=== PATIENT | female | born 1995 | race Caucasian/White ===

== ENCOUNTER 2018-11-15 02:19 | Emergency (ER) | payer OTHER ==
[2018-11-15 02:56] LABS: Protime INR 0.96
[2018-11-15 03:27] LABS: Absolute Lymphocytes (CBC) 4.4 K/uL (0.7-4.9); Absolute Monocytes 0.8 K/uL (0.1-1.3); Absolute Neutrophil 5.7 K/uL (1.8-8.0); Basophils % 0.3 % (0-1.3); Eosinophils % 2.5 % (0-4.4); Hematocrit 38.8 % (36.0-45.0); Lymphocytes % 39.3 % (15.3-44.8); MPV 8.2 fL (7.6-11.3); Monocytes % 6.7 % (3.3-12.3); RBC Red Blood Cell Count 4.45 M/uL (3.86-4.86)
[2018-11-15 03:40] LABS: ALT/SGPT 24 U/L (12-78); AST/SGOT 7 U/L (15-37); Albumin 3.6 g/dL (3.4-5.0); Alkaline Phosphatase 62 U/L (45-117); BUN Blood Urea Nitrogen 10 mg/dL (7-18); Bicarbonate 28 mmol/L (21-32); Bilirubin Direct < 0.1 mg/dL (0-0.2); Bilirubin Total 0.1 mg/dL (0.2-1.0); Glucose Level 100 mg/dL (74-106); Magnesium 1.8 mg/dL (1.8-2.4); NT PRO-BNP 75 pg/mL (<125); Potassium 3.7 mmol/L (3.5-5.1); Protein, Total 6.7 g/dL (6.4-8.2); Sodium Level 140 mmol/L (136-145); Troponin (Emerg Dept Use Only) < 0.02 ng/mL (0.0-0.045)
--- NOTE | 2018-11-15 08:46 | ER ---
Nurse's Notes [facility] Name: Lara Palacio Age: 23 yrs Sex: Female : 1995 Arrival Date: 11/15/2018 Time: 02:23 Bed 4 Private MD: Diagnosis: Chest pain, unspecified Presentation: 11/15 02:20 Presenting complaint: Patient states: that since 2099 she has been having chest fc tightness that goes through to her upper back along with shortness of breath. These episodes are on and off. Denies any nausea or vomiting. Did have episode of heart rate of 158 x 20 minutes. On antibiotics and [place] for tooth infection. Transition of care: patient was not received from another setting of care. Onset of symptoms was November 14, 2018 at 21:00. Risk Assessment: Do you want to hurt yourself or someone else? Patient reports no desire to harm self or others. Initial Sepsis Screen: Does the patient meet any 2 criteria? No. Patient's initial sepsis screen is negative. Does the patient have a suspected source of infection? No. Patient's initial sepsis screen is negative. Care prior to arrival: Medication(s) given: ASA, 81 mg, x 4. 02:20 Method Of Arrival: [facility]: [facility] 02:20 Acuity: DEEPA 2 fc Historical: - Allergies: 02:29 No Known Allergies; fc - Home Meds: 02:29 [place] 7.5-325 mg Oral tab 1 tab every 4 hours [Active]; alprazolam 2 mg Oral tab 1 tab fc daily prn [Active]; - PMHx: 02:29 Myocardial infarction; bradycardia; SVT; Vasovagal syndrome; Anxiety; fc - PSHx: 02:29 heart ablation x 2; eye surg; Tonsillectomy; Adenoids; fc - Immunization history:: Last tetanus immunization: up to date Flu vaccine is not up to date. - Social history:: Smoking status: Patient uses tobacco products, smokes one-half pack cigarettes per day, Patient uses alcohol, occasionally. Patient/guardian denies using street drugs. - Ebola Screening: : Patient negative for fever greater than or equal to 101.5 degrees Fahrenheit, and additional compatible Ebola Virus Disease symptoms Patient denies exposure to infectious person Patient denies travel to an Ebola-affected area in the 21 days before illness onset. Screenin:27 Abuse screen: Denies threats or abuse. Nutritional screening: No deficits noted. fc Tuberculosis screening: No symptoms or risk factors identified. Fall Risk None identified. Assessment: 02:57 General: Appears in no apparent distress. uncomfortable, Behavior is calm, cooperative, jd3 appropriate for age. Pain: Complains of pain in chest Pain does not radiate. Pain began suddenly. Neuro: Level of Consciousness is awake, alert, obeys commands, Oriented to person, place, time, situation, Appropriate for age. Cardiovascular: Capillary refill < 3 seconds Patient's skin is warm and dry. Rhythm is regular. Respiratory: Airway is patent Respiratory effort is even, unlabored, Respiratory pattern is regular, symmetrical. GI: No signs and/or symptoms were reported involving the gastrointestinal system. : No signs and/or symptoms were reported regarding the genitourinary system. EENT: No signs and/or symptoms were reported regarding the EENT system. Derm: Skin is intact, Skin is dry, Skin is normal, Skin temperature is warm. Musculoskeletal: Circulation, motion, and sensation intact. Range of motion: intact in all extremities. 03:30 Reassessment: Patient appears in no apparent distress at this time. Patient and/or jd3 family updated on plan of care and expected duration. Pain level reassessed. Patient is alert, oriented x 3, equal unlabored respirations, skin warm/dry/pink. 04:31 Reassessment: Patient appears in no apparent distress at this time. Patient and/or jd3 family updated on plan of care and expected duration. Pain level reassessed. Patient is alert, oriented x 3, equal unlabored respirations, skin warm/dry/pink. 04:32 Reassessment: pt updated on wait for 2nd trop to be drawn at 0640. ak1 05:20 Reassessment: Patient appears in no apparent distress at this time. Patient and/or jd3 family updated on plan of care and expected duration. Pain level reassessed. Patient is alert, oriented x 3, equal unlabored respirations, skin warm/dry/pink. 06:08 Reassessment: Patient appears in no apparent distress at this time. Patient and/or jd3 family updated on plan of care and expected duration. Pain level reassessed. Patient is alert, oriented x 3, equal unlabored respirations, skin warm/dry/pink. 07:07 General: Appears in no apparent distress. uncomfortable, Behavior is calm, cooperative, hj appropriate for age. Pain: Denies pain. Neuro: Level of Consciousness is awake, alert, obeys commands, Oriented to person, place, time, situation, Appropriate for age. Cardiovascular: Capillary refill < 3 seconds Patient's skin is warm and dry. Respiratory: Airway is patent Respiratory effort is even, unlabored, Respiratory pattern is regular, symmetrical. GI: No signs and/or symptoms were reported involving the gastrointestinal system. : No signs and/or symptoms were reported regarding the genitourinary system. EENT: No signs and/or symptoms were reported regarding the EENT system. Derm: Skin is intact, Skin is dry, Skin is pink, warm \T\ dry. Skin temperature is warm. Musculoskeletal: Circulation, motion, and sensation intact. Range of motion: intact in all extremities. 08:15 Reassessment: Patient and/or family updated on plan of care and expected duration. Pain pc1 level reassessed. Patient is alert, oriented x 3, equal unlabored respirations, skin warm/dry/pink. 08:58 Reassessment: Patient appears in no apparent distress at this time. Patient and/or ch family updated on plan of care and expected duration. Pain level reassessed. Patient is alert, oriented x 3, equal unlabored respirations, skin warm/dry/pink. Patient denies pain at this time. Patient states feeling better. Patient states symptoms have improved. Vital Signs: 02:20 BP 123 / 80; Pulse 88; Resp 18; Temp 98.1(O); Pulse Ox 100% on R/A; Weight 97.52 kg fc (R); Height 5 ft. 3 in. (160.02 cm) (R); Pain 3/10; 03:30 BP 106 / 65; Pulse 62; Resp 14 S; Pulse Ox 99% on R/A; jd3 04:31 BP 109 / 76; Pulse 67; Resp 14 S; Pulse Ox 97% on R/A; jd3 05:16 BP 114 / 76; Pulse 50; Resp 14; Pulse Ox 98% on R/A; ak1 06:08 BP 95 / 61; Pulse 65; Resp 15 S; Pulse Ox 98% on R/A; jd3 07:04 BP 94 / 64; Pulse 53; Resp 18; Pulse Ox 100% ; pc1 08:15 BP 97 / 61; Pulse 57; Resp 14; Pulse Ox 100% ; Pain 2/10; pc1 08:58 BP 96 / 54; Pulse 56; Resp 14; Temp 97.8; Pulse Ox 99% on R/A; Pain 0/10; ch 02:20 Body Mass Index 38.09 (97.52 kg, 160.02 cm) ED Course: 02:20 Arm band placed on Patient placed in an exam room, on a stretcher. fc 02:23 Patient arrived in ED. fc 02:26 Triage completed. fc 02:27 Theodore Carter MD is Attending Physician. kdr 02:27 Patient has correct armband on for positive identification. Placed in gown. Bed in low fc position. Call light in reach. Side rails up X2. potline monitor on. Pulse ox on. NIBP on. 02:29 Chanell García, RN is Primary Nurse. ak1 02:45 Inserted saline lock: 22 gauge in right forearm, using aseptic technique. Blood jd3 collected. 02:54 X-ray completed. Portable x-ray completed in exam room. Patient tolerated procedure sg4 well. 02:55 XRAY Chest (1 view) In Process Unspecified. EDMS 06:13 Patient maintains SpO2 saturation greater than 95% on room air. jd3 06:50 Sergio Diamond PA is PHCP. [facility] 06:59 Diego Goncalves, LORNE is Primary Nurse. hj 08:46 Ammon Villa MD is Referral Physician. [facility] 08:58 No provider procedures requiring assistance completed. IV discontinued, intact, ch bleeding controlled, No redness/swelling at site. Pressure dressing applied. 09:00 Basic Metabolic Panel Sent. Administered Medications: No medications were administered Outcome: 08:46 Discharge ordered by . [facility] 08:58 Discharged to home ambulatory, with family. 08:58 Condition: improved 08:58 Discharge instructions given to patient, family, Instructed on discharge instructions, follow up and referral plans. Demonstrated understanding of instructions, follow-up care. 09:00 Patient left the ED. Signatures: Dispatcher [employer] EDMS Tari Francois RN RN Theodore Carter MD MD [facility] Sergio Diamond PA PA jmm Chretien, Felicia, RN RN fc Chanell García, RN RN ak1 Diego Goncalves, RN RN Shakir Villalpando, RN RN jd3 Sandra Gardiner Patrick pc1
--- NOTE | 2018-11-15 08:46 | EDPHYS ---
Physician Documentation [facility] Name: Lara Palacio Age: 23 yrs Sex: Female : 1995 Arrival Date: 11/15/2018 Time: 02:23 Bed 4 Private MD: ED Physician Theodore Carter HPI: 11/15 02:52 This 23 yrs old Female presents to ER via EMS with complaints of Chest Pain. kdr 02:52 The patient or guardian reports chest pain that is located primarily in the substernal kdr area. The pain does not radiate. Associated signs and symptoms: Pertinent positives: dizziness, lightheadedness, palpitations, shortness of breath, Pertinent negatives: diaphoresis, vomiting. The chest pain is described as aching, dull, a pressure, squeezing. Duration: The patient or guardian reports multiple episodes, that are intermittent, that wax and wane, with no pattern. Modifying factors: The symptoms are alleviated by nothing. the symptoms are aggravated by nothing. Severity of pain: At its worst the pain was moderate in the emergency department the pain has improved moderately. The patient has experienced similar episodes in the past, with the last episode occurring 6 month(s) ago. The patient has not recently seen a physician, Is seeing Dr. Villa for possible repeat ablation and pacemaker placement. Historical: - Allergies: 02:29 No Known Allergies; fc - Home Meds: 02:29 [place] 7.5-325 mg Oral tab 1 tab every 4 hours [Active]; alprazolam 2 mg Oral tab 1 tab fc daily prn [Active]; - PMHx: 02:29 Myocardial infarction; bradycardia; SVT; Vasovagal syndrome; Anxiety; fc - PSHx: 02:29 heart ablation x 2; eye surg; Tonsillectomy; Adenoids; fc - Immunization history:: Last tetanus immunization: up to date Flu vaccine is not up to date. - Social history:: Smoking status: Patient uses tobacco products, smokes one-half pack cigarettes per day, Patient uses alcohol, occasionally. Patient/guardian denies using street drugs. - Ebola Screening: : Patient negative for fever greater than or equal to 101.5 degrees Fahrenheit, and additional compatible Ebola Virus Disease symptoms Patient denies exposure to infectious person Patient denies travel to an Ebola-affected area in the 21 days before illness onset. ROS: 02:52 Constitutional: Negative for fever, chills, and weight loss, Eyes: Negative for injury, kdr pain, redness, and discharge, ENT: Negative for injury, pain, and discharge, Neck: Negative for injury, pain, and swelling, Respiratory: Negative for shortness of breath, cough, wheezing, and pleuritic chest pain, Abdomen/GI: Negative for abdominal pain, nausea, vomiting, diarrhea, and constipation, Back: Negative for injury and pain, : Negative for injury, bleeding, discharge, and swelling, MS/Extremity: Negative for injury and deformity, Skin: Negative for injury, rash, and discoloration, Psych: Negative for depression, anxiety, suicide ideation, homicidal ideation, and hallucinations, Allergy/Immunology: Negative for hives, rash, and allergies, Endocrine: Negative for neck swelling, polydipsia, polyuria, polyphagia, and marked weight changes, Hematologic/Lymphatic: Negative for swollen nodes, abnormal bleeding, and unusual bruising. 02:52 Cardiovascular: Positive for chest pain, palpitations, Negative for edema, orthopnea, acute changes. 02:52 Neuro: Positive for dizziness, weakness, Negative for altered mental status, headache, hearing loss, loss of consciousness, seizure activity, speech changes, syncope, near syncope, tinnitus, tremor, visual changes. Exam: 02:52 Constitutional: This is a well developed, well nourished patient who is awake, alert, kdr and in no acute distress. Head/Face: Normocephalic, atraumatic. Eyes: Pupils equal round and reactive to light, extra-ocular motions intact. Lids and lashes normal. Conjunctiva and sclera are non-icteric and not injected. Cornea within normal limits. Periorbital areas with no swelling, redness, or edema. Neck: Trachea midline, no thyromegaly or masses palpated, and no cervical lymphadenopathy. Supple, full range of motion without nuchal rigidity, or vertebral point tenderness. No Meningismus. Chest/axilla: Normal chest wall appearance and motion. Nontender with no deformity. No lesions are appreciated. Cardiovascular: Regular rate and rhythm with a normal S1 and S2. No gallops, murmurs, or rubs. Normal PMI, no JVD. No pulse deficits. Respiratory: Lungs have equal breath sounds bilaterally, clear to auscultation and percussion. No rales, rhonchi or wheezes noted. No increased work of breathing, no retractions or nasal flaring. Abdomen/GI: Soft, non-tender, with normal bowel sounds. No distension or tympany. No guarding or rebound. No evidence of tenderness throughout. Back: No spinal tenderness. No costovertebral tenderness. Full range of motion. Skin: Warm, dry with normal turgor. Normal color with no rashes, no lesions, and no evidence of cellulitis. MS/ Extremity: Pulses equal, no cyanosis. Neurovascular intact. Full, normal range of motion. Neuro: Awake and alert, GCS 15, oriented to person, place, time, and situation. Cranial nerves II-XII grossly intact. Motor strength 5/5 in all extremities. Sensory grossly intact. Cerebellar exam normal. Normal gait. Psych: Awake, alert, with orientation to person, place and time. Behavior, mood, and affect are within normal limits. Vital Signs: 02:20 BP 123 / 80; Pulse 88; Resp 18; Temp 98.1(O); Pulse Ox 100% on R/A; Weight 97.52 kg fc (R); Height 5 ft. 3 in. (160.02 cm) (R); Pain 3/10; 03:30 BP 106 / 65; Pulse 62; Resp 14 S; Pulse Ox 99% on R/A; jd3 04:31 BP 109 / 76; Pulse 67; Resp 14 S; Pulse Ox 97% on R/A; jd3 05:16 BP 114 / 76; Pulse 50; Resp 14; Pulse Ox 98% on R/A; ak1 06:08 BP 95 / 61; Pulse 65; Resp 15 S; Pulse Ox 98% on R/A; jd3 07:04 BP 94 / 64; Pulse 53; Resp 18; Pulse Ox 100% ; pc1 08:15 BP 97 / 61; Pulse 57; Resp 14; Pulse Ox 100% ; Pain 2/10; pc1 08:58 BP 96 / 54; Pulse 56; Resp 14; Temp 97.8; Pulse Ox 99% on R/A; Pain 0/10; ch 02:20 Body Mass Index 38.09 (97.52 kg, 160.02 cm) MDM: 06:50 Patient medically screened. petros 08:45 Data reviewed: vital signs, nurses notes. Counseling: I had a detailed discussion with petros the patient and/or guardian regarding: the historical points, exam findings, and any diagnostic results supporting the discharge/admit diagnosis, lab results, radiology results, the need for outpatient follow up, to return to the emergency department if symptoms worsen or persist or if there are any questions or concerns that arise at home. ED course: repeat enzymes are negative. patient is advised to follow up with cardiology on Saturday. patient is given strict return precautions. patient understood and agrees with the plan of care. . 11/15 02:27 Order name: Basic Metabolic Panel kdr 11/15 02:27 Order name: CBC with Diff; Complete Time: 04:39 kdr 11/15 02:27 Order name: LFT's; Complete Time: 04:39 kdr 11/15 02:27 Order name: Magnesium; Complete Time: 04:39 kdr 11/15 02:27 Order name: NT PRO-BNP; Complete Time: 04:39 kdr 11/15 02:27 Order name: PT-INR; Complete Time: 04:39 kdr 11/15 02:27 Order name: Troponin (emerg Dept Use Only); Complete Time: 04:39 kdr 11/15 02:27 Order name: XRAY Chest (1 view) kdr 11/15 02:27 Order name: EKG; Complete Time: 02:28 kdr 11/15 02:27 Order name: Cardiac monitoring; Complete Time: 02:30 kdr 11/15 02:27 Order name: EKG - Nurse/Tech; Complete Time: 02:31 kdr 11/15 02:27 Order name: IV [place]; Complete Time: 02:55 kdr 11/15 02:28 Order name: Basic Metabolic Panel; Complete Time: 04:39 EDMS 11/15 04:43 Order name: Troponin (emerg Dept Use Only); Complete Time: 08:47 ak1 11/15 02:27 Order name: Labs collected and sent; Complete Time: 03:57 kdr 11/15 02:27 Order name: O2 Per Protocol; Complete Time: 02:30 kdr 11/15 02:27 Order name: O2 Sat Monitoring; Complete Time: 02:30 kdr Administered Medications: No medications were administered Disposition: 11/15/18 08:46 Discharged to Home. Impression: Chest pain, unspecified. - Condition is Stable. - Discharge Instructions: Nonspecific Chest Pain. - Medication Reconciliation Form, Thank You Letter, Antibiotic Education, Prescription Opioid Use form. - Follow up: Ammon Villa MD; When: 1 - 2 days; Reason: Recheck today's complaints, Continuance of care, Re-evaluation by your physician. Addendum: 11/17/2018 06:52 Co-signature as Attending Physician, Theodore Carter MD I agree with the assessment and k dr plan of care. Signatures: Dispatcher [employer] EDTari Jacques, RN RN Theodore Carter MD MD [facility] Sergio Diamond PA PA [facility] Asia Daniel, RN RN fc Corrections: (The following items were deleted from the chart) 11/15 09:00 08:46 11/15/2018 08:46 Discharged to Home. Impression: Chest pain, unspecified. Condition is Stable. Forms are Medication Reconciliation Form, Thank You Letter, Antibiotic Education, Prescription Opioid Use. Follow up: Ammon Villa; When: 1 - 2 days; Reason: Recheck today's complaints, Continuance of care, Re-evaluation by your physician. [facility]
--- NOTE | 2018-11-15 09:21 | EKG ---
Test Date: 2018-11-15 Test Time: 02:26:40 [place] [employer] Operator: GORDON MEASUREMENT RESULTS: Intervals: Rate: 76 [place]: 162 QRSD: 86 QT: 382 QTc: 429 [place]: P: 42 NJ: 162 QRS: 43 T: 11 INTERPRETIVE STATEMENTS: Normal sinus rhythm Nonspecific T wave abnormality Abnormal ECG No previous ECG available for comparison Electronically Signed On 11-15-18 09:21:04 CDT by Ammon Villa
--- NOTE | 2018-11-15 11:16 | RAD REPORT ---
EXAM DESCRIPTION: RAD - Chest Single View - 11/15/2018 2:57 am CLINICAL HISTORY: CHEST PAIN Chest pain. COMPARISON: No comparisons FINDINGS: Portable technique limits examination quality. The lungs are grossly clear. The heart is normal in size. No displaced fractures. IMPRESSION: No acute intrathoracic process suspected.
== END 2018-11-15 09:00 | disposition home or self-care (01) ==
LOC: ER 02:19
DX: R07.9 Chest pain, unspecified (principal); I25.2 Old myocardial infarction
CPT/HCPCS: 36415; 71045; 80048; 80076; 83735; 83880; 84484; 85025; 85610; 93005; 99285

== ENCOUNTER 2019-01-09 12:03 | Emergency (ER) | payer OTHER ==
[2019-01-09] MEDS ORDERED: NA CHLORIDE 0.9% 1,000 ML ONE ×2 (13:53→14:30)
[2019-01-09 14:07] LABS: Urine Blood 1+ (NEG); Urine Glucose NEGATIVE (NEG); Urine Protein TRACE (NEG); Urine pH 6.5 (5.0-7.0)
[2019-01-09 14:12] LABS: Urine Bacteria >50 /HPF (<20)
[2019-01-09 14:13] LABS: Urine Culture Reflex Order REFLEXED; Urine Trichomonas PRESENT (NONE SEEN)
[2019-01-09] MEDS ORDERED: MORPHINE 4 MG/ML SYR ONE ×2 (14:29→15:54)
[2019-01-09] MEDS ORDERED: ACETAMINOPHEN 500 MG TAB ONE (14:30)
[2019-01-09] MEDS ORDERED: ONDANSETRON 4 MG/2 ML VIAL ONE (14:30)
[2019-01-09 14:57] LABS: Absolute Lymphocytes (CBC) 1.9 K/uL (0.7-4.9); Absolute Monocytes 1.2 K/uL (0.1-1.3); Absolute Neutrophil 12.4 K/uL (1.8-8.0); Basophils % 0.2 % (0-1.3); Eosinophils % 0.3 % (0-4.4); Hematocrit 42.6 % (36.0-45.0); Lymphocytes % 12.5 % (15.3-44.8); MPV 8.1 fL (7.6-11.3); Monocytes % 7.7 % (3.3-12.3); RBC Red Blood Cell Count 4.85 M/uL (3.86-4.86)
[2019-01-09 15:12] LABS: ALT/SGPT 19 U/L (12-78); AST/SGOT 11 U/L (15-37); Albumin 3.9 g/dL (3.4-5.0); Alkaline Phosphatase 87 U/L (45-117); BUN Blood Urea Nitrogen 7 mg/dL (7-18); Bicarbonate 25 mmol/L (21-32); Bilirubin Direct < 0.1 mg/dL (0-0.2); Bilirubin Total 0.4 mg/dL (0.2-1.0); Glucose Level 96 mg/dL (74-106); Lipase 90 U/L (73-393); Protein, Total 8.3 g/dL (6.4-8.2); Sodium Level 139 mmol/L (136-145)
--- NOTE | 2019-01-09 15:54 | RAD REPORT ---
EXAM DESCRIPTION: CT - Abdomen Pelvis W Contrast - 01/09/2019 3:30 pm CLINICAL HISTORY: Back pain, right-sided flank pain COMPARISON: None. TECHNIQUE: Biphasic, helical CT imaging of the abdomen and pelvis was performed following 100 ml non -ionic IV contrast. No oral contrast administered. All CT scans are performed using dose optimization technique as appropriate and may include automated exposure control or mA/KV adjustment according to patient size. FINDINGS: No suspicious findings in the lung bases. The liver, spleen, and pancreas show no suspicious findings. Gallbladder and biliary tree are also wi thout suspicious finding. Renal function appears to be symmetric. There is mild hydronephrosis and hydroureter on the right evan n to the pelvic inlet level. Distal ureter is decompressed. No left-sided hydronephrosis. There are n o obstructing or nonobstructing calculi. No etiology seen for the mild right-sided dilatation. This p attern can be seen with ureteritis. A recently passed stone, blood or inflammatory debris in the uret er would be possible. No pyelonephritis identifiable in the renal parenchyma. No solid mass lesion. N o bladder abnormalities. No adrenal abnormality seen. Uterus and ovaries within normal limits. No suspicious CORRECTIONS SPECIALIST process. No gastric dilatation or wall thickening. No small bowel abnormality. No acute colon process seen. Ce cum is low lying along the anterior floor the pelvis. No appendicitis findings. No free air, free fl uid or inflammatory stranding. No hernia, mass or bulky lymphadenopathy. No suspicious bony findings. IMPRESSION: Mild hydronephrosis of the right collecting system down to the pelvic inlet level. No ob structing calculus. Etiology for the dilatation is unknown. Ureteritis would be possible. Blood, inflammatory debris or r ecently passed stone can give this presentation. No pyelonephritis findings seen. No acute finding of the renal parenchyma. No acute GI or CORRECTIONS SPECIALIST process.
[2019-01-09] MEDS ORDERED: AZITHROMYCIN 250 MG TAB ONE (17:17)
[2019-01-09] MEDS ORDERED: CEFTRIAXONE/SWI 1gm 1 GM/10 ML SYR ONE (17:17)
[2019-01-09] MEDS ORDERED: metroNIDAZOLE 500 MG TABLET ONE (17:17)
--- NOTE | 2019-01-09 17:37 | EDPHYS ---
Physician Documentation [facility] Name: Lara Palacio Age: 23 yrs Sex: Female : 1995 Arrival Date: 01/09/2019 Time: 12:06 Bed 13 Private MD: ED Physician Theodore Carter HPI: 01/09 14:05 This 23 yrs old Female presents to ER via Ambulatory with complaints of Back pm1 Pain, Abdominal Pain, Vomiting, Blood In Urine. 14:05 The patient presents with pain that is acute, with no known mechanism of injury. The pm1 symptoms are located in the right mid back. Onset: The symptoms/episode began/occurred 3 day(s) ago. The pain radiates to the right upper quadrant. Associated signs and symptoms: Pertinent positives: abdominal pain, fever, nausea, vomiting, blood in urine, and vaginal discharge, Pertinent negatives: chest pain, headache, Diarrhea. The problem was sustained from unknown cause. Modifying factors: The patient symptoms are alleviated by nothing, the patient symptoms are aggravated by nothing. Severity of symptoms: in the emergency department the symptoms are actually worse. The patient has not experienced similar symptoms in the past. The patient has not recently seen a physician. 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 - Social history:: Smoking status: . - Ebola Screening: : Patient denies travel to an Ebola-affected area in the 21 days before illness onset. ROS: 14:05 Constitutional: Negative for fever, chills, and weight loss, Eyes: Negative for injury, pm1 pain, redness, and discharge, ENT: Negative for injury, pain, and discharge, Neck: Negative for injury, pain, and swelling, Cardiovascular: Negative for chest pain, palpitations, and edema, Respiratory: Negative for shortness of breath, cough, wheezing, and pleuritic chest pain, MS/Extremity: Negative for injury and deformity, Skin: Negative for injury, rash, and discoloration, Neuro: Negative for headache, weakness, numbness, tingling, and seizure. 14:05 Abdomen/GI: Positive for abdominal pain, nausea and vomiting, of the right upper quadrant, Negative for diarrhea, constipation. 14:05 Back: Positive for flank pain, on the right. 14:05 : Positive for hematuria, vaginal discharge. Exam: 14:05 Constitutional: This is a well developed, well nourished patient who is awake, alert, pm1 and in no acute distress. Head/Face: Normocephalic, atraumatic. Eyes: Pupils equal round and reactive to light, extra-ocular motions intact. Lids and lashes normal. Conjunctiva and sclera are non-icteric and not injected. Cornea within normal limits. Periorbital areas with no swelling, redness, or edema. ENT: Nares patent. No nasal discharge, no septal abnormalities noted. Tympanic membranes are normal and external auditory canals are clear. Oropharynx with no redness, swelling, or masses, exudates, or evidence of obstruction, uvula midline. Mucous membranes moist. Neck: Trachea midline, no thyromegaly or masses palpated, and no cervical lymphadenopathy. Supple, full range of motion without nuchal rigidity, or vertebral point tenderness. No Meningismus. Chest/axilla: Normal chest wall appearance and motion. Nontender with no deformity. No lesions are appreciated. Cardiovascular: Regular rate and rhythm with a normal S1 and S2. No gallops, murmurs, or rubs. Normal PMI, no JVD. No pulse deficits. Respiratory: Lungs have equal breath sounds bilaterally, clear to auscultation and percussion. No rales, rhonchi or wheezes noted. No increased work of breathing, no retractions or nasal flaring. Abdomen/GI: Soft, non-tender, with normal bowel sounds. No distension or tympany. No guarding or rebound. No evidence of tenderness throughout. 14:05 Skin: Warm, dry with normal turgor. Normal color with no rashes, no lesions, and no evidence of cellulitis. MS/ Extremity: Pulses equal, no cyanosis. Neurovascular intact. Full, normal range of motion. 14:05 Back: pain, that is moderate, of the right mid back, normal spinal alignment noted. 14:05 Neuro: Orientation: is normal, Motor: is normal, moves all fours. Vital Signs: 13:05 BP 128 / 81; Pulse 114; Resp 17; Temp 99.4(O); Pulse Ox 96% on R/A; Weight 90.72 kg tw2 (R); Height 5 ft. 3 in. (160.02 cm); Pain 10/10; 14:00 BP 124 / 78; Pulse 105; Resp 16; Pulse Ox 99% on R/A; hb 15:30 BP 128 / 68; Pulse 92; Resp 15; Pulse Ox 100% on R/A; Pain 7/10; hb 17:00 BP 122 / 70; Pulse 82; Resp 15; Temp 98.7; Pulse Ox 100% on R/A; hb 17:40 BP 135 / 87; Pulse 91; Resp 15; Pulse Ox 100% on R/A; hb 13:05 Body Mass Index 35.43 (90.72 kg, 160.02 cm) tw2 MDM: 13:27 Patient medically screened. pm1 17:09 ED course: Patient with mild hydronephritis on CT. Possibly due to recnet kidney stone pm1 or urethritis. Patient with history of kidney stones and diagnosed with trichomoniasis here in the ER. No symptoms indicating PID. Therefore will cover the patient with antibiotics for trich, gonorrhea, chlamydia, UTI and recently passed stone. 17:10 Data reviewed: vital signs. Data interpreted: Pulse oximetry: on room air is 99 %. pm1 Interpretation: normal. Counseling: I had a detailed discussion with the patient and/or guardian regarding: the historical points, exam findings, and any diagnostic results supporting the discharge/admit diagnosis, lab results, radiology results. 01/09 13:23 Order name: Urine Microscopic Only; Complete Time: 14:29 eb 01/09 13:33 Order name: Basic Metabolic Panel pm1 01/09 13:33 Order name: CBC with Diff pm1 01/09 13:33 Order name: Creatinine for Radiology pm1 01/09 13:33 Order name: Hepatic Function pm1 01/09 13:33 Order name: Lipase pm1 01/09 13:33 Order name: Flu; Complete Time: 14:57 pm1 01/09 13:34 Order name: Basic Metabolic Panel; Complete Time: 16:05 EDMS 01/09 13:34 Order name: CBC with Automated Diff EDMS 01/09 13:34 Order name: Creatinine (Radiology Only); Complete Time: 15:05 EDMS 01/09 13:34 Order name: Liver (Hepatic) Function; Complete Time: 16:05 EDMS 01/09 13:34 Order name: Lipase; Complete Time: 16:05 EDMS 01/09 13:48 Order name: Urine Dipstick--Ancillary (enter results); Complete Time: 14:29 eb 01/09 13:48 Order name: Urine --Ancillary (enter results); Complete Time: 14:29 eb 01/09 13:33 Order name: IV Saline Lock; Complete Time: 14:49 pm1 01/09 13:33 Order name: Labs collected and sent; Complete Time: 14:49 pm1 01/09 13:33 Order name: CT Abd/Pelvis - W/Contrast; Complete Time: 16:05 pm1 01/09 13:33 Order name: Urine Dipstick-Ancillary (obtain specimen); Complete Time: 14:54 pm1 01/09 13:33 Order name: Urine Test (obtain specimen); Complete Time: 14:55 pm1 01/09 14:14 Order name: Urine Culture EDMS Administered Medications: 14:16 Drug: Tylenol 1000 mg Route: PO; hb 15:15 Follow up: Response: No adverse reaction; Temperature is decreased hb 14:28 Drug: NS 0.9% 1000 ml Route: IV; Rate: 1000 ml; Site: right antecubital; iw 14:30 Drug: Zofran 4 mg Route: IVP; Site: right antecubital; iw 15:00 Follow up: Response: No adverse reaction hb 14:32 Drug: morphine 4 mg Route: IVP; Site: right antecubital; iw 15:45 Follow up: Response: No adverse reaction; Pain is unchanged, physician notified hb 14:36 Drug: NS 0.9% 1000 ml Route: IV; Rate: 1000 ml; Site: right antecubital; iw 15:44 Drug: morphine 4 mg Route: IVP; Site: right antecubital; hb 16:15 Follow up: Response: No adverse reaction hb 17:10 Drug: Rocephin 1 grams Route: IV; Rate: calculated rate; Site: right antecubital; hb 17:30 Drug: Zithromax 1 grams Route: PO; hb 17:30 Drug: Flagyl 2 grams Route: PO; hb Disposition: 01/09/19 17:36 Discharged to Home. Impression: Trichomoniasis, Mild right hydronephritis. - Condition is Stable. - Discharge Instructions: Trichomoniasis, Hydronephrosis. - Prescriptions for Cipro 500 mg Oral Tablet - take 1 tablet by ORAL route every 12 hours for 10 days; 20 tablet. Zofran 4 mg Oral Tablet - take 1 tablet by ORAL route every 12 hours As needed; 20 tablet. Tylenol- Codeine #3 300-30 mg Oral Tablet - take 2 tablet by ORAL route every 6 hours As needed; 20 tablet. - Medication Reconciliation Form, Thank You Letter, Antibiotic Education, Prescription Opioid Use form. - Follow up: Emergency Department; When: As needed; Reason: Worsening of condition. Follow up: Private Physician; When: 2 - 3 days; Reason: Recheck today's complaints, Continuance of care, Re-evaluation by your physician. - Problem is new. - Symptoms have improved. Addendum: 01/10/2019 19:31 Co-signature as Attending Physician, Theodore Carter MD I agree with the assessment and k dr plan of care. Signatures: Dispatcher [employer] EDMS Theodore Carter MD MD [facility] Misti Angeles RN RN En Lopez NP FOOTWEAR STITCHER pm1 Dora Ortega RN RN Carmina Severino RN RN tw2 Corrections: (The following items were deleted from the chart) 01/09 18:21 17:36 01/09/2019 17:36 Discharged to Home. Impression: Trichomoniasis; Mild right hb hydronephritis. Condition is Stable. Forms are Medication Reconciliation Form, Thank You Letter, Antibiotic Education, Prescription Opioid Use. Follow up: Emergency Department; When: As needed; Reason: Worsening of condition. Follow up: Private Physician; When: 2 - 3 days; Reason: Recheck today's complaints, Continuance of care, Re-evaluation by your physician. Problem is new. Symptoms have improved. pm1
--- NOTE | 2019-01-09 17:37 | ER ---
Nurse's Notes [facility] Name: Lara Palacio Age: 23 yrs Sex: Female : 1995 Arrival Date: 01/09/2019 Time: 12:06 Bed 13 Private MD: Diagnosis: Trichomoniasis;Mild right hydronephritis Presentation: 01/09 13:03 Presenting complaint: Patient states: started 3 or 4 days ago, i woke up with the tw2 center of my back hurting real bad, thought i slept wrong but everyday it got worse and now it has started to wrap around to the right side and i have been vomiting and nauseous and i am having back spasms, my urine is dark but it looks light rust and i have a headache too but its mostly my back. Transition of care: patient was not received from another setting of care. Onset of symptoms was January 09, 2019. Risk Assessment: Do you want to hurt yourself or someone else? Patient reports no desire to harm self or others. Initial Sepsis Screen: Does the patient meet any 2 criteria? HR > 90 bpm. No. Patient's initial sepsis screen is negative. Does the patient have a suspected source of infection? No. Patient's initial sepsis screen is negative. Care prior to arrival: None. 13:03 Method Of Arrival: Ambulatory tw2 13:03 Acuity: DEEPA 2 tw2 13:05 Note "i may or may not be , my last period was in october". tw2 Triage Assessment: 13:06 General: Appears uncomfortable, Behavior is cooperative, appropriate for age. Neuro: tw2 Level of Consciousness is awake, alert, obeys commands, Oriented to person, place, time, situation. Cardiovascular:. Cardiovascular: pt looks pale, diaphoretic.. GI: Reports lower abdominal pain, upper abdominal pain. Musculoskeletal: Range of motion: intact in all extremities. Musculoskeletal: Reports pain in back. 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 - Social history:: Smoking status: . - Ebola Screening: : Patient denies travel to an Ebola-affected area in the 21 days before illness onset. Screenin:01 Abuse screen: Denies threats or abuse. Denies injuries from another. Nutritional hb screening: No deficits noted. Tuberculosis screening: No symptoms or risk factors identified. Fall Risk None identified. Assessment: 14:01 General: Appears in no apparent distress. ill, Behavior is calm, cooperative. Pain: hb Pain currently is 10 out of 10 on a pain scale. Neuro: Level of Consciousness is awake, alert, obeys commands, Oriented to person, place, time, situation. Cardiovascular: Heart tones S1 S2 present Capillary refill < 3 seconds Patient's skin is warm and dry. Respiratory: Airway is patent Respiratory effort is even, unlabored, Respiratory pattern is regular, symmetrical, Breath sounds are clear bilaterally. GI: No signs and/or symptoms were reported involving the gastrointestinal system. : Reports right flank pain. EENT: No signs and/or symptoms were reported regarding the EENT system. Derm: Skin is intact, is healthy with good turgor, Skin is pink, warm \\T\\ dry. Musculoskeletal: No signs and/or symptoms reported regarding the musculoskeletal system. 14:50 Reassessment: Patient appears in no apparent distress at this time. Patient and/or hb family updated on plan of care and expected duration. Pain level reassessed. Patient is alert, oriented x 3, equal unlabored respirations, skin warm/dry/pink. 15:48 Reassessment: Pt returned from CT, c/o right flank pain 10/10, FIELD ASSISTANT Jessica notified, hb repeat morphine administered as ordered. 16:30 Reassessment: Patient appears in no apparent distress at this time. Patient and/or hb family updated on plan of care and expected duration. Pain level reassessed. Patient is alert, oriented x 3, equal unlabored respirations, skin warm/dry/pink. 17:30 Reassessment: Patient appears in no apparent distress at this time. Patient and/or hb family updated on plan of care and expected duration. Pain level reassessed. Patient is alert, oriented x 3, equal unlabored respirations, skin warm/dry/pink. Vital Signs: 13:05 BP 128 / 81; Pulse 114; Resp 17; Temp 99.4(O); Pulse Ox 96% on R/A; Weight 90.72 kg tw2 (R); Height 5 ft. 3 in. (160.02 cm); Pain 10/10; 14:00 BP 124 / 78; Pulse 105; Resp 16; Pulse Ox 99% on R/A; hb 15:30 BP 128 / 68; Pulse 92; Resp 15; Pulse Ox 100% on R/A; Pain 7/10; hb 17:00 BP 122 / 70; Pulse 82; Resp 15; Temp 98.7; Pulse Ox 100% on R/A; hb 17:40 BP 135 / 87; Pulse 91; Resp 15; Pulse Ox 100% on R/A; hb 13:05 Body Mass Index 35.43 (90.72 kg, 160.02 cm) tw2 ED Course: 12:06 Patient arrived in ED. rg4 13:05 Triage completed. tw2 13:05 Arm band placed on. tw2 13:27 En Lopez NP is PHCP. pm1 13:27 Theodore Carter MD is Attending Physician. pm1 13:33 Dora Ortega, LORNE is Primary Nurse. hb 14:01 Patient has correct armband on for positive identification. Placed in gown. Bed in low hb position. Call light in reach. Side rails up X 1. 14:01 Missed attempt(s): 22 gauge in right Bleeding controlled, band aid applied, catheter hb tip intact. 14:33 Radiology exam delayed due to lab results not completed at this time. (BUN/Creatinine). vm2 15:[address] via wheelchair. vm2 15:25 CT completed. Patient tolerated procedure well. Patient moved back from CT. nj 15:31 CT Abd/Pelvis - W/Contrast In Process Unspecified. EDMS 18:20 No provider procedures requiring assistance completed. IV discontinued, intact, hb bleeding controlled, No redness/swelling at site. Pressure dressing applied. Administered Medications: 14:16 Drug: Tylenol 1000 mg Route: PO; hb 15:15 Follow up: Response: No adverse reaction; Temperature is decreased hb 14:28 Drug: NS 0.9% 1000 ml Route: IV; Rate: 1000 ml; Site: right antecubital; iw 14:30 Drug: Zofran 4 mg Route: IVP; Site: right antecubital; iw 15:00 Follow up: Response: No adverse reaction hb 14:32 Drug: morphine 4 mg Route: IVP; Site: right antecubital; iw 15:45 Follow up: Response: No adverse reaction; Pain is unchanged, physician notified hb 14:36 Drug: NS 0.9% 1000 ml Route: IV; Rate: 1000 ml; Site: right antecubital; iw 15:44 Drug: morphine 4 mg Route: IVP; Site: right antecubital; hb 16:15 Follow up: Response: No adverse reaction hb 17:10 Drug: Rocephin 1 grams Route: IV; Rate: calculated rate; Site: right antecubital; hb 17:30 Drug: Zithromax 1 grams Route: PO; hb 17:30 Drug: Flagyl 2 grams Route: PO; hb Outcome: 17:36 Discharge ordered by MD. pm1 18:20 Discharged to home ambulatory, with family. hb 18:20 Condition: stable 18:20 Discharge instructions given to patient, Instructed on discharge instructions, follow up and referral plans. medication usage, Demonstrated understanding of instructions, follow-up care, medications, Prescriptions given X 3. 18:21 Patient left the ED. hb Addendum: 01/11/2019 09:55 Addendum: Culture Results: Positive urine culture. No further action required. Bacteria i w sensitive to prescribed antibiotic. Signatures: Dispatcher [employer] EDMisti Thomas RN RN En Lopez, ANTONY FIELD ASSISTANT pm1 Dora Ortega RN RN Carmina Severino RN RN 2 Mary Gardiner [facility] Navin Luciano [facility]
== END 2019-01-09 18:21 | disposition home or self-care (01) ==
LOC: ER 12:03
DX: A59.9 Trichomoniasis, unspecified (principal); N13.30 Unspecified hydronephrosis; I25.2 Old myocardial infarction
CPT/HCPCS: 36415; 74177; 80048; 80076; 81003; 81015; 81025; 83690; 85025; 87077; 87086; 87088; 87186; 87804; 96374; 96375; 99284; J0696; J2405; J7030; Q9967

== ENCOUNTER 2019-04-13 12:06 | Emergency (ER) | payer OTHER ==
[2019-04-13] MEDS ORDERED: METOPROLOL TAR 50 MG TAB ONE (12:49)
[2019-04-13 13:03] LABS: Urine Blood NEGATIVE (NEG); Urine Glucose NEGATIVE (NEG); Urine Protein NEGATIVE (NEG)
--- NOTE | 2019-04-13 13:06 | RAD REPORT ---
EXAM DESCRIPTION: RAD - Chest Single View - 04/13/2019 12:55 pm CLINICAL HISTORY: PALPITATIONS Chest pain. COMPARISON: Chest Single View dated 11/15/2018 FINDINGS: Portable technique limits examination quality. The lungs are grossly clear. The heart is normal in size. No displaced fractures. IMPRESSION: No acute intrathoracic process suspected.
[2019-04-13 13:10] LABS: Barbiturates NEGATIVE (NEGATIVE); Benzodiazepines POSITIVE (NEGATIVE); Cocaine NEGATIVE (NEGATIVE); METHAMPHETAM NEGATIVE (NEGATIVE); Methadone NEGATIVE (NEGATIVE); Opiates POSITIVE (NEGATIVE); Phencyclidine NEGATIVE (NEGATIVE); THC Cannibis NEGATIVE (NEGATIVE)
[2019-04-13 13:24] LABS: Absolute Lymphocytes (CBC) 2.8 K/uL (0.7-4.9); Basophils % 0.3 % (0-1.3); Hematocrit 36.7 % (36.0-45.0); Lymphocytes % 45.7 % (15.3-44.8); MPV 8.2 fL (7.6-11.3); RBC Red Blood Cell Count 4.26 M/uL (3.86-4.86)
[2019-04-13 13:35] LABS: Protime INR 0.97
[2019-04-13 13:57] LABS: ALT/SGPT 22 U/L (12-78); AST/SGOT 12 U/L (15-37); Albumin 3.5 g/dL (3.4-5.0); Alkaline Phosphatase 68 U/L (45-117); BUN Blood Urea Nitrogen 11 mg/dL (7-18); Bicarbonate 27 mmol/L (21-32); Bilirubin Direct < 0.1 mg/dL (0-0.2); Bilirubin Total 0.2 mg/dL (0.2-1.0); Glucose Level 81 mg/dL (74-106); NT PRO-BNP 26 pg/mL (<125); Potassium 3.8 mmol/L (3.5-5.1); Protein, Total 6.7 g/dL (6.4-8.2); Sodium Level 140 mmol/L (136-145); Troponin (Emerg Dept Use Only) < 0.02 ng/mL (0.0-0.045)
--- NOTE | 2019-04-13 14:20 | ER ---
Nurse's Notes [facility] Name: Lara Palacio Age: 23 yrs Sex: Female : 1995 Arrival Date: 04/13/2019 Time: 12:09 Bed 13 Private MD: Diagnosis: Bradycardia, unspecified;Tachycardia, unspecified Presentation: 04/13 12:16 Presenting complaint: Patient states: my HR is fluctuating, 62 the least, the highest hj is 232, it started 6 am today; reports chest pain; reports SOB;. Transition of care: patient was not received from another setting of care. 12:16 Method Of Arrival: Ambulatory 12:17 Onset of symptoms was April 13, 2019. Risk Assessment: Do you want to hurt yourself or hj someone else? Patient reports no desire to harm self or others. Initial Sepsis Screen: Does the patient meet any 2 criteria? No. Patient's initial sepsis screen is negative. Does the patient have a suspected source of infection? No. Patient's initial sepsis screen is negative. Care prior to arrival: None. 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 - Ebola Screening: : No symptoms or risks identified at this time. - Family history:: not pertinent. Screenin:54 Abuse screen: Denies threats or abuse. Denies injuries from another. Nutritional ph screening: No deficits noted. Tuberculosis screening: No symptoms or risk factors identified. Fall Risk None identified. Assessment: 12:45 General: Appears in no apparent distress. comfortable, well groomed, Behavior is calm, ph cooperative, appropriate for age, Denies fever, feeling ill. Pain: Denies pain. 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 12:45 Neuro: Level of Consciousness is awake, alert, obeys commands, Oriented to person, ph place, time, situation. Cardiovascular: Reports chest pain, fatigue, lightheadedness, nausea, palpitations, shortness of breath, syncope, Capillary refill < 3 seconds in bilateral fingers Patient's skin is warm and dry. Rhythm is sinus bradycardia. Respiratory: Airway is patent Respiratory effort is even, unlabored. Derm: Skin is intact, is healthy with good turgor, Skin is pink, warm \T\ dry. 14:00 Reassessment: Patient appears in no apparent distress at this time. Patient and/or ph family updated on plan of care and expected duration. Pain level reassessed. Patient is alert, oriented x 3, equal unlabored respirations, skin warm/dry/pink. 15:09 Reassessment: Patient appears in no apparent distress at this time. Patient and/or ph family updated on plan of care and expected duration. Pain level reassessed. Patient is alert, oriented x 3, equal unlabored respirations, skin warm/dry/pink. Pt d/c home, instructed to follow up w/ service station operator, also instructed to return to ED if symptoms worsen. Vital Signs: 12:18 BP 123 / 83; Pulse 80; Resp 18; Temp 97.2(O); Pulse Ox 98% on R/A; Weight 95.25 kg; hj Height 5 ft. 3 in. (160.02 cm); Pain 5/10; 13:00 BP 111 / 78; Pulse 64; Resp 16; Pulse Ox 100% on R/A; ph 14:00 BP 110 / 80; Pulse 48; Resp 16; Pulse Ox 99% on R/A; ph 15:00 BP 108 / 76; Pulse 51; Resp 18; Temp 97.8; Pulse Ox 99% on R/A; ph 12:18 Body Mass Index 37.20 (95.25 kg, 160.02 cm) ED Course: 12:09 Patient arrived in ED. rg4 12:17 Triage completed. hj 12:18 Arm band placed on left wrist. hj 12:37 Sara Greene, LORNE is Primary Nurse. ph 12:38 Geovani Clark MD is Attending Physician. [facility] 12:55 X-ray completed. Portable x-ray completed in exam room. Patient tolerated procedure mh1 well. 12:55 Patient has correct armband on for positive identification. Placed in gown. Bed in low ph position. Call light in reach. Side rails up X 1. radiation monitor on. Pulse ox on. NIBP on. 13:00 XRAY Chest (1 view) In Process Unspecified. EDMS 13:00 Inserted saline lock: 22 gauge in right wrist, using aseptic technique. ph 14:18 Ammon Villa MD is Referral Physician. [facility] 15:15 No provider procedures requiring assistance completed. IV discontinued, intact, ph bleeding controlled, No redness/swelling at site. Pressure dressing applied. Administered Medications: 15:09 Not Given (Hemodynamic Parameters): Lopressor (metoprolol TARTRATE) 50 mg PO once ph Outcome: 14:19 Discharge ordered by . brielle 15:15 Patient left the ED. ph 15:15 Discharged to home ambulatory. ph 15:15 Condition: stable 15:15 Discharge instructions given to patient, Instructed on discharge instructions, follow up and referral plans. Demonstrated understanding of instructions, follow-up care. Signatures: Dispatcher [employer] Geovani Tijerina MD MD cha Harvey, Martha mh1 Sara Greene RN RN Diego Goncalves RN RN hj Garcia, Rubi rg4
--- NOTE | 2019-04-13 14:21 | EDPHYS ---
Physician Documentation [facility] Name: Lara Palacio Age: 23 yrs Sex: Female : 1995 Arrival Date: 04/13/2019 Time: 12:09 Bed 13 Private MD: ED Physician Geovani Clark HPI: 04/13 14:14 This 23 yrs old Female presents to ER via Ambulatory with complaints of Chest brielle Discomfort. 14:14 The patient presents with a history of irregular heart beat. Context: The symptoms brielle occur at rest, with light activity. Onset: The symptoms/episode began/occurred suddenly. Duration: The patient or guardian reports multiple episodes, with no pattern. Modifying factors: The symptoms are aggravated by nothing. The symptoms are alleviated by nothing. Associated signs and symptoms: Pertinent positives: near-syncope. Severity of symptoms: At their worst the symptoms were mild moderate in the emergency department the symptoms are unchanged. The patient has experienced similar episodes in the past, multiple times. 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 - Ebola Screening: : No symptoms or risks identified at this time. - Family history:: not pertinent. ROS: 14:14 Constitutional: Negative for fever, chills, and weight loss, Eyes: Negative for injury, brielle pain, redness, and discharge, ENT: Negative for injury, pain, and discharge, Neck: Negative for injury, pain, and swelling, Respiratory: Negative for shortness of breath, cough, wheezing, and pleuritic chest pain, Abdomen/GI: Negative for abdominal pain, nausea, vomiting, diarrhea, and constipation, Back: Negative for injury and pain, : Negative for injury, bleeding, discharge, and swelling, MS/Extremity: Negative for injury and deformity, Skin: Negative for injury, rash, and discoloration, Neuro: Negative for headache, weakness, numbness, tingling, and seizure, Psych: Negative for depression, anxiety, suicide ideation, homicidal ideation, and hallucinations, Allergy/Immunology: Negative for hives, rash, and allergies, Endocrine: Negative for neck swelling, polydipsia, polyuria, polyphagia, and marked weight changes, Hematologic/Lymphatic: Negative for swollen nodes, abnormal bleeding, and unusual bruising. 14:14 Cardiovascular: Positive for palpitations. Exam: 14:14 Constitutional: This is a well developed, well nourished patient who is awake, alert, brielle and in no acute distress. Head/Face: Normocephalic, atraumatic. Eyes: Pupils equal round and reactive to light, extra-ocular motions intact. Lids and lashes normal. Conjunctiva and sclera are non-icteric and not injected. Cornea within normal limits. Periorbital areas with no swelling, redness, or edema. ENT: Nares patent. No nasal discharge, no septal abnormalities noted. Tympanic membranes are normal and external auditory canals are clear. Oropharynx with no redness, swelling, or masses, exudates, or evidence of obstruction, uvula midline. Mucous membranes moist. Neck: Trachea midline, no thyromegaly or masses palpated, and no cervical lymphadenopathy. Supple, full range of motion without nuchal rigidity, or vertebral point tenderness. No Meningismus. Chest/axilla: Normal chest wall appearance and motion. Nontender with no deformity. No lesions are appreciated. Cardiovascular: Regular rate and rhythm with a normal S1 and S2. No gallops, murmurs, or rubs. Normal PMI, no JVD. No pulse deficits. Respiratory: Lungs have equal breath sounds bilaterally, clear to auscultation and percussion. No rales, rhonchi or wheezes noted. No increased work of breathing, no retractions or nasal flaring. Abdomen/GI: Soft, non-tender, with normal bowel sounds. No distension or tympany. No guarding or rebound. No evidence of tenderness throughout. Back: No spinal tenderness. No costovertebral tenderness. Full range of motion. Female : Normal external genitalia. Skin: Warm, dry with normal turgor. Normal color with no rashes, no lesions, and no evidence of cellulitis. MS/ Extremity: Pulses equal, no cyanosis. Neurovascular intact. Full, normal range of motion. Neuro: Awake and alert, GCS 15, oriented to person, place, time, and situation. Cranial nerves II-XII grossly intact. Motor strength 5/5 in all extremities. Sensory grossly intact. Cerebellar exam normal. Normal gait. Psych: Awake, alert, with orientation to person, place and time. Behavior, mood, and affect are within normal limits. 14:14 Musculoskeletal/extremity: DVT Exam: No signs of deep vein thrombosis. no pain, no swelling, no tenderness, negative Homans' sign noted on exam, no appreciated bluish discoloration, no erythema, no increased warmth. Vital Signs: 12:18 BP 123 / 83; Pulse 80; Resp 18; Temp 97.2(O); Pulse Ox 98% on R/A; Weight 95.25 kg; hj Height 5 ft. 3 in. (160.02 cm); Pain 5/10; 13:00 BP 111 / 78; Pulse 64; Resp 16; Pulse Ox 100% on R/A; ph 14:00 BP 110 / 80; Pulse 48; Resp 16; Pulse Ox 99% on R/A; ph 15:00 BP 108 / 76; Pulse 51; Resp 18; Temp 97.8; Pulse Ox 99% on R/A; ph 12:18 Body Mass Index 37.20 (95.25 kg, 160.02 cm) hj MDM: 12:38 Patient medically screened. [facility] 14:15 Data reviewed: vital signs, nurses notes, lab test result(s), EKG, radiologic studies, brielle plain films. 04/13 12:39 Order name: Basic Metabolic Panel [facility] 04/13 12:39 Order name: CBC with Diff; Complete Time: 14:12 [facility] 04/13 12:39 Order name: LFT's; Complete Time: 14:12 [facility] 04/13 12:39 Order name: Magnesium; Complete Time: 14:12 [facility] 04/13 12:39 Order name: NT PRO-BNP; Complete Time: 14:12 [facility] 04/13 12:39 Order name: PT-INR; Complete Time: 14:12 [facility] 04/13 12:39 Order name: Troponin (emerg Dept Use Only); Complete Time: 14:12 [facility] 04/13 12:39 Order name: XRAY Chest (1 view); Complete Time: 14:12 [facility] 04/13 12:39 Order name: TSH; Complete Time: 14:12 [facility] 04/13 12:40 Order name: UDS; Complete Time: 14:12 [facility] 04/13 12:43 Order name: Basic Metabolic Panel; Complete Time: 14:12 [facility] 04/13 12:55 Order name: Urine Dipstick--Ancillary (enter results); Complete Time: 14:12 04/13 12:55 Order name: Urine --Ancillary (enter results); Complete Time: 14:12 04/13 12:26 Order name: EKG - Nurse/Tech; Complete Time: 12:26 04/13 12:39 Order name: EKG; Complete Time: 12:44 [facility] 04/13 12:39 Order name: Cardiac monitoring; Complete Time: 13:04 [facility] 04/13 12:39 Order name: IV Saline Lock; Complete Time: 14:23 [facility] 04/13 12:39 Order name: Labs collected and sent; Complete Time: 14:23 [facility] 04/13 12:39 Order name: O2 Per Protocol; Complete Time: 14:23 [facility] 04/13 12:39 Order name: O2 Sat Monitoring; Complete Time: 14:23 [facility] 04/13 12:39 Order name: Urine Dipstick-Ancillary (obtain specimen); Complete Time: 12:52 [facility] 04/13 12:39 Order name: Urine Test (obtain specimen); Complete Time: 12:52 [facility] Administered Medications: 15:09 Not Given (Hemodynamic Parameters): Lopressor (metoprolol TARTRATE) 50 mg PO once ph Disposition: 04/13/19 14:19 Discharged to Home. Impression: Bradycardia, unspecified, Tachycardia, unspecified. - Condition is Stable. - Discharge Instructions: Bradycardia, Adult, Postural Orthostatic Tachycardia Syndrome, Electrophysiology Study. - Medication Reconciliation Form, Thank You Letter, Antibiotic Education, Prescription Opioid Use form. - Follow up: Private Physician; When: 1 - 2 days; Reason: Recheck today's complaints, Continuance of care, Re-evaluation by your physician. Follow up: Ammon Villa MD; When: 2 - 3 days; Reason: Recheck today's complaints, Continuance of care, Re-evaluation by your physician. - Problem is new. - Symptoms have improved. Signatures: Dispatcher [employer] EDDC Geovani Clark MD MD cha Hall, Patricia, RN RN Diego Goncalves RN RN Corrections: (The following items were deleted from the chart) 15:15 14:19 04/13/2019 14:19 Discharged to Home. Impression: Bradycardia, unspecified; ph Tachycardia, unspecified. Condition is Stable. Forms are Medication Reconciliation Form, Thank You Letter, Antibiotic Education, Prescription Opioid Use. Follow up: Private Physician; When: 1 - 2 days; Reason: Recheck today's complaints, Continuance of care, Re-evaluation by your physician. Follow up: Ammon Villa; When: 2 - 3 days; Reason: Recheck today's complaints, Continuance of care, Re-evaluation by your physician. Problem is new. Symptoms have improved. brielle
--- NOTE | 2019-04-14 07:50 | EKG ---
Test Date: 2019-04-13 Test Time: 12:25:04 Clinical Operations Consultant: TIERRA MEASUREMENT RESULTS: Intervals: Rate: 82 NV: 164 QRSD: 80 QT: 360 QTc: 420 [place]: P: 46 NV: 164 QRS: 103 T: 33 INTERPRETIVE STATEMENTS: Normal sinus rhythm with sinus arrhythmia Rightward axis Nonspecific T wave abnormality Abnormal ECG Compared to ECG 11/15/2018 02:26:40 Right-axis deviation now present T-wave abnormality still present Electronically Signed On 04-14-19 07:49:14 CDT by Bg Mujica
== END 2019-04-13 15:15 | disposition home or self-care (01) ==
LOC: ER 12:06
DX: R00.1 Bradycardia, unspecified (principal); R00.0 Tachycardia, unspecified; F41.9 Anxiety disorder, unspecified; I25.2 Old myocardial infarction
CPT/HCPCS: 36415; 71045; 80048; 80076; 80307; 81003; 81025; 83735; 83880; 84443; 84484; 85025; 85610; 93005; 99284

== ENCOUNTER 2019-06-01 21:35 | Emergency (ER) | payer OTHER ==
[2019-06-01 23:20] LABS: ALT/SGPT 33 U/L (12-78); AST/SGOT 21 U/L (15-37); Albumin 3.7 g/dL (3.4-5.0); Alkaline Phosphatase 71 U/L (45-117); BUN Blood Urea Nitrogen 11 mg/dL (7-18); Bicarbonate 28 mmol/L (21-32); Bilirubin Direct < 0.1 mg/dL (0-0.2); Bilirubin Total 0.2 mg/dL (0.2-1.0); Glucose Level 86 mg/dL (74-106); Magnesium 1.8 mg/dL (1.8-2.4); NT PRO-BNP 28 pg/mL (<125); Potassium 3.8 mmol/L (3.5-5.1); Sodium Level 141 mmol/L (136-145); Troponin (Emerg Dept Use Only) < 0.02 ng/mL (0.0-0.045)
[2019-06-01 23:24] LABS: Absolute Lymphocytes (CBC) 2.7 K/uL (0.7-4.9); Basophils % 0.5 % (0-1.3); Hematocrit 36.9 % (36.0-45.0); MPV 7.8 fL (7.6-11.3); RBC Red Blood Cell Count 4.28 M/uL (3.86-4.86)
[2019-06-01 23:36] LABS: Protime INR 1.03
[2019-06-02 00:04] LABS: Urine Blood NEGATIVE (NEG); Urine Glucose NEGATIVE (NEG); Urine Protein NEGATIVE (NEG); Urine pH 7.5 (5.0-7.0)
[2019-06-02 00:33] LABS: Urine Bacteria <20 /HPF (<20); Urine RBC <5 /HPF (NONE SEEN)
--- NOTE | 2019-06-02 00:33 | EDPHYS ---
Physician Documentation [facility] Name: Lara Palacio Age: 23 yrs Sex: Female : 1995 Arrival Date: 06/01/2019 Time: 21:38 Bed 7 Private MD: ED Physician Geovani Clark HPI: 06/01 23:58 This 23 yrs old Female presents to ER via Ambulatory with complaints of snw Passed Out Prior To Arrival, Fall Injury. 23:58 The patient has experienced syncope. Onset: The symptoms/episode began/occurred snw suddenly, today. Duration: This was a single episode. Context:. 23:59 Associated injury: Head/face: right episcopalian, Left lower extremity: left tricep, snw contusion, swelling, tenderness. Associated signs and symptoms: Pertinent negatives: agitation, confusion, palpitations, weakness. Current symptoms: headache, that is moderate. The patient has experienced similar episodes in the past, multiple times. The patient has been recently seen by a physician: with different complaint(s), recent pacemaker placement. 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 - Immunization history: Last tetanus immunization: unknown. - Social history:: Smoking status: Patient uses tobacco products, denies chronic smoking, but will smoke occasionally. - Ebola Screening: : Patient denies travel to an Ebola-affected area in the 21 days before illness onset. ROS: 23:57 Constitutional: Negative for fever, chills, and weight loss, Eyes: Negative for injury, snw pain, redness, and discharge, ENT: Negative for injury, pain, and discharge, Neck: Negative for injury, pain, and swelling, Cardiovascular: Negative for chest pain, palpitations, and edema, Respiratory: Negative for shortness of breath, cough, wheezing, and pleuritic chest pain, Abdomen/GI: Negative for abdominal pain, nausea, vomiting, diarrhea, and constipation, Back: Negative for injury and pain, : Negative for injury, bleeding, discharge, and swelling, Skin: Negative for injury, rash, and discoloration. 23:57 MS/extremity: Positive for injury or acute deformity, contusion, swelling, tenderness, of the left tricep. 23:57 Neuro: Positive for headache, syncope, Negative for loss of consciousness. Exam: 23:56 Constitutional: This is a well developed, well nourished patient who is awake, alert, snw and in no acute distress. Head/Face: Normocephalic, tenderness to right parietal area Eyes: Pupils equal round and reactive to light, extra-ocular motions intact. Lids and lashes normal. Conjunctiva and sclera are non-icteric and not injected. Cornea within normal limits. Periorbital areas with no swelling, redness, or edema. ENT: Nares patent. No nasal discharge, no septal abnormalities noted. Tympanic membranes are normal and external auditory canals are clear. Oropharynx with no redness, swelling, or masses, exudates, or evidence of obstruction, uvula midline. Mucous membranes moist. Neck: Trachea midline, no thyromegaly or masses palpated, and no cervical lymphadenopathy. Supple, full range of motion without nuchal rigidity, or vertebral point tenderness. No Meningismus. Chest/axilla: Normal chest wall appearance and motion. Nontender with no deformity. No lesions are appreciated. Cardiovascular: Regular rate and rhythm with a normal S1 and S2. No gallops, murmurs, or rubs. Normal PMI, no JVD. No pulse deficits. Respiratory: Lungs have equal breath sounds bilaterally, clear to auscultation and percussion. No rales, rhonchi or wheezes noted. No increased work of breathing, no retractions or nasal flaring. Abdomen/GI: Soft, non-tender, with normal bowel sounds. No distension or tympany. No guarding or rebound. No evidence of tenderness throughout. Back: No spinal tenderness. No costovertebral tenderness. Full range of motion. Skin: Warm, dry with normal turgor. Normal color with no rashes, no lesions, and no evidence of cellulitis. Neuro: Awake and alert, GCS 15, oriented to person, place, time, and situation. Cranial nerves II-XII grossly intact. Motor strength 5/5 in all extremities. Sensory grossly intact. Cerebellar exam normal. Normal gait. Psych: Awake, alert, with orientation to person, place and time. Behavior, mood, and affect are within normal limits. 23:56 Musculoskeletal/extremity: Extremities: grossly normal except: noted in the left tricep: contusion, ROM: no acute changes, Circulation is intact in all extremities. Sensation intact. Vital Signs: 21:51 BP 122 / 83; Pulse 91; Resp 18; Temp 97.8; Pulse Ox 99% on R/A; Weight 97.98 kg (R); aj1 Height 5 ft. 3 in. (160.02 cm) (R); Pain 8/10; 22:30 BP 110 / 62; Pulse 86; Resp 18; Pulse Ox 97% on R/A; ea 23:14 BP 118 / 69; Pulse 80; Resp 18; Pulse Ox 98% on R/A; ea 06/02 00:05 BP 121 / 79; Pulse 68; Resp 18; Pulse Ox 97% ; ea 00:49 BP 111 / 84; Pulse 66; Resp 18; Pulse Ox 100% ; ea 01:15 BP 112 / 80; Pulse 70; Resp 18; Temp 97.8; Pulse Ox 98% ; ea 06/01 21:51 Body Mass Index 38.26 (97.98 kg, 160.02 cm) aj1 Rebecca Coma Score: 06/01 21:51 Eye Response: spontaneous(4). Verbal Response: oriented(5). Motor Response: obeys aj1 commands(6). Total: 15. 23:14 Eye Response: spontaneous(4). Verbal Response: oriented(5). Motor Response: obeys ea commands(6). Total: 15. 06/02 00:05 Eye Response: spontaneous(4). Verbal Response: oriented(5). Motor Response: obeys ea commands(6). Total: 15. Trauma Score (Adult): 06/01 21:51 Eye Response: spontaneous(1); Verbal Response: oriented(1); Motor Response: obeys aj1 commands(2); Systolic BP: > 89 mm Hg(4); Respiratory Rate: 10 to 29 per min(4); [place] Score: 15; Trauma Score: 12 MDM: 23:23 Patient medically screened. [facility] 06/02 00:33 ECG was reviewed by the Attending Physician. Data reviewed: vital signs, nurses notes. [facility] Data interpreted: Pulse oximetry: on room air is 97 %. Interpretation: normal. Counseling: I had a detailed discussion with the patient and/or guardian regarding: the historical points, exam findings, and any diagnostic results supporting the discharge/admit diagnosis, lab results, radiology results, the need for outpatient follow up, to return to the emergency department if symptoms worsen or persist or if there are any questions or concerns that arise at home. Special discussion: Based on the history and exam findings, there is no indication for further emergent testing or inpatient evaluation. 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 I discussed with the patient/guardian the need to see the primary care provider for further evaluation of the symptoms. 06/01 22:16 Order name: Basic Metabolic Panel; Complete Time: 23:23 06/01 22:16 Order name: CBC with Diff; Complete Time: 23: 06/01 22:16 Order name: LFT's; Complete Time: 23:23 06/01 22:16 Order name: Magnesium; Complete Time: 23:23 06/01 22:16 Order name: NT PRO-BNP; Complete Time: 23:23 06/01 22:16 Order name: PT-INR; Complete Time: 23:43 06/01 22:16 Order name: Troponin (emerg Dept Use Only); Complete Time: 23:23 06/01 22:16 Order name: XRAY Chest (1 view) 06/01 23:11 Order name: Urine Culture [facility] 06/01 23:11 Order name: Urine Microscopic Only; Complete Time: 00:34 [facility] 06/01 23:30 Order name: Urine Dipstick--Ancillary (enter results); Complete Time: 00:07 [facility] 06/01 23:30 Order name: Urine --Ancillary (enter results); Complete Time: 00:07 [facility] 06/01 23:37 Order name: CT Head C Spine 06/01 23:37 Order name: XRAY Humerus LEFT 06/01 22:16 Order name: EKG; Complete Time: 22:17 06/01 22:16 Order name: Cardiac monitoring; Complete Time: : 06/01 22:16 Order name: EKG - Nurse/Tech; Complete Time: 22:49 ea 06/01 22:16 Order name: IV Saline Lock; Complete Time: :49 ea 06/01 22:16 Order name: Labs collected and sent; Complete Time: :49 ea 06/01 22:16 Order name: O2 Per Protocol; Complete Time: 22:28 ea 06/01 22:16 Order name: O2 Sat Monitoring; Complete Time: :28 ea 06/01 23:11 Order name: Urine Test (obtain specimen); Complete Time: 23:31 snw 06/01 23:11 Order name: Urine Dipstick-Ancillary (obtain specimen); Complete Time: 23:31 snw Administered Medications: 00:39 CANCELLED (route change): fentaNYL (PF) 25 mcg IM once; RASS on ADMIN: Combtv4, Very ea Agttd3, Agttd2, Rstlss1, AlertClm0, Drwsy-1, Lt Sdtn-2, Mod Sdtn-3, Dp Sdtn-4, UnArsble-5 00:39 Drug: fentaNYL (PF) 25 mcg {Note: RASS 0.} Route: IVP; Site: right antecubital; ea 01:00 Follow up: Response: No adverse reaction; RASS: Alert and Calm (0) ea 01:26 CANCELLED (Other Intervention Used): [place] 5 mg-325 mg 2 tabs PO once; RASS on ADMIN: ea Combtv4, Very Agttd3, Agttd2, Rstlss1, AlertClm0, Drwsy-1, Lt Sdtn-2, Mod Sdtn-3, Dp Sdtn-4, UnArsble-5 01:27 Drug: [place] 5 mg-325 mg 1 tabs Route: PO; ea 01:35 Follow up: Response: No adverse reaction; RASS: Alert and Calm (0) ea Disposition: 06/02/19 00:32 Discharged to Home. Impression: Syncope and collapse, Superficial injury of head, Contusion of left upper arm. - Condition is Stable. - Discharge Instructions: Contusion, Head Injury, Adult, Syncope. - Work release form, Medication Reconciliation Form, Thank You Letter, Antibiotic Education, Prescription Opioid Use form. - Follow up: Private Physician; When: 1 - 2 days; Reason: Recheck today's complaints, Continuance of care, Re-evaluation by your physician. Follow up: Emergency Department; When: As needed; Reason: Worsening of condition. Addendum: 06/04/2019 07:43 Co-signature as Attending Physician, Geovani Clark MD I agree with the assessment and c gage plan of care. Signatures: Dispatcher [employer] EDAnna Marie Simpson RN RN ajGeovani Tobias MD MD cha Therrien, Shelly, REFRIGERATION SYSTEMS INSTALLER-C REFRIGERATION SYSTEMS INSTALLER-Csnw Ana Maria Guerra RN RN ea Corrections: (The following items were deleted from the chart) 06/02 00:39 00:31 fentaNYL (PF) 25 mcg IM once; RASS on ADMIN: Combtv4, Very Agttd3, Agttd2, ea Rstlss1, AlertClm0, Drwsy-1, Lt Sdtn-2, Mod Sdtn-3, Dp Sdtn-4, UnArsble-5 ordered. snw 00:39 00:39 fentaNYL (PF) 25 mcg IM once; RASS on ADMIN: Combtv4, Very Agttd3, Agttd2, ea Rstlss1, AlertClm0, Drwsy-1, Lt Sdtn-2, Mod Sdtn-3, Dp Sdtn-4, UnArsble-5 ordered. ea 01:26 01:26 [place] 5 mg-325 mg 2 tabs PO once; RASS on ADMIN: Combtv4, Very Agttd3, Agttd2, ea Rstlss1, AlertClm0, Drwsy-1, Lt Sdtn-2, Mod Sdtn-3, Dp Sdtn-4, UnArsble-5 ordered. ea 01:56 00:32 06/02/2019 00:32 Discharged to Home. Impression: Syncope and collapse; ea Superficial injury of head; Contusion of left upper arm. Condition is Stable. Forms are Medication Reconciliation Form, Thank You Letter, Antibiotic Education, Prescription Opioid Use. Follow up: Private Physician; When: 1 - 2 days; Reason: Recheck today's complaints, Continuance of care, Re-evaluation by your physician. Follow up: Emergency Department; When: As needed; Reason: Worsening of condition. snw
--- NOTE | 2019-06-02 00:33 | ER ---
Nurse's Notes [facility] Name: Lara Palacio Age: 23 yrs Sex: Female : 1995 Arrival Date: 06/01/2019 Time: 21:38 Bed 7 Private MD: Diagnosis: Syncope and collapse;Superficial injury of head;Contusion of left upper arm Presentation: 06/01 21:51 Presenting complaint: Patient states: " I have vasovagal syncope and I was at work and aj1 I forgot to take my medication, I just got a pacemaker 2 weeks ago and I think that I might have ripped my incision open a little. And I hit my head on a metal tray" Reports headache and pain to left upper arm. Reports that she hit her head 30 minutes ago and she has vomiting once since then. Reports headache and drowsiness. Care prior to arrival: None. Mechanism of Injury: Fall from standing position. Trauma event details: Injury occurred in the [facility]. 21:51 Acuity: DEEPA 2 aj1 21:51 Method Of Arrival: Ambulatory aj1 21:56 Transition of care: patient was not received from another setting of care. Onset of aj1 symptoms was June 01, 2019. Risk Assessment: Do you want to hurt yourself or someone else? Patient reports no desire to harm self or others. Initial Sepsis Screen: Does the patient meet any 2 criteria? HR > 90 bpm. No. Patient's initial sepsis screen is negative. Does the patient have a suspected source of infection? No. Patient's initial sepsis screen is negative. Triage Assessment: 21:58 General: Appears in no apparent distress. uncomfortable, Behavior is calm, cooperative, aj1 appropriate for age. Pain: Pain currently is 8 out of 10 on a pain scale. 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 - Immunization history: Last tetanus immunization: unknown. - Social history:: Smoking status: Patient uses tobacco products, denies chronic smoking, but will smoke occasionally. - Ebola Screening: : Patient denies travel to an Ebola-affected area in the 21 days before illness onset. Screenin:51 Abuse screen: Denies threats or abuse. Denies injuries from another. Tuberculosis aj1 screening: No symptoms or risk factors identified. 22:50 Nutritional screening: No deficits noted. Fall Risk Fall in past 12 months (25 points). ea Primary Survey: 21:51 NO uncontrolled hemorrhage observed. A: The patient is alert. Airway: patent. aj1 Breathing/Chest: Respiratory pattern: regular, Respiratory effort: spontaneous, unlabored. Circulation: Skin color: pink. Disability Alert. 23:14 Exposure/Environment: Obvious injury(ies) are noted at this time: pt reports pain to ea left arm, reports hitting left side of head. 23:30 Reassessment Airway Airway Patent Breathing/Chest Respiratory pattern Regular ea Respiratory effort Spontaneous Unlabored. Secondary Survey: 23:09 Musculoskeletal: Reports pain in left bicep. ea Assessment: 23:09 General: Appears uncomfortable, Behavior is appropriate for age. Pain: Complains of ea pain in left arm and left bicep, headache. Neuro: Level of Consciousness is awake, alert, obeys commands, Oriented to person, place, time, situation. Cardiovascular: Patient's skin is warm and dry. Parent/caregiver reports patient has had syncope. Respiratory: Airway is patent Respiratory effort is even, unlabored, Respiratory pattern is regular, symmetrical. Derm: Skin is pink, warm \\T\\ dry. 23:09 Derm: surgical incision noted to left arm pit, pt reports "the bottom of the incision ea feels like it ripped open". 23:51 Reassessment: Patient and/or family updated on plan of care and expected duration. Pain ea level reassessed. Patient is alert, oriented x 3, equal unlabored respirations, skin warm/dry/pink. Pt taken to CT. 06/02 00:10 Reassessment: Patient and/or family updated on plan of care and expected duration. Pain ea level reassessed. Patient is alert, oriented x 3, equal unlabored respirations, skin warm/dry/pink. Pt returned from CT. 00:50 Reassessment: Patient and/or family updated on plan of care and expected duration. Pain ea level reassessed. Patient is alert, oriented x 3, equal unlabored respirations, skin warm/dry/pink. 01:35 Reassessment: Patient and/or family updated on plan of care and expected duration. Pain ea level reassessed. Patient is alert, oriented x 3, equal unlabored respirations, skin warm/dry/pink. Pt left ED ambulatory accompanied by family, pt tolerating well. Vital Signs: 06/01 21:51 BP 122 / 83; Pulse 91; Resp 18; Temp 97.8; Pulse Ox 99% on R/A; Weight 97.98 kg (R); aj1 Height 5 ft. 3 in. (160.02 cm) (R); Pain 8/10; 22:30 BP 110 / 62; Pulse 86; Resp 18; Pulse Ox 97% on R/A; ea 23:14 BP 118 / 69; Pulse 80; Resp 18; Pulse Ox 98% on R/A; ea 06/02 00:05 BP 121 / 79; Pulse 68; Resp 18; Pulse Ox 97% ; ea 00:49 BP 111 / 84; Pulse 66; Resp 18; Pulse Ox 100% ; ea 01:15 BP 112 / 80; Pulse 70; Resp 18; Temp 97.8; Pulse Ox 98% ; ea 06/01 21:51 Body Mass Index 38.26 (97.98 kg, 160.02 cm) aj1 Blodgett Coma Score: 06/01 21:51 Eye Response: spontaneous(4). Verbal Response: oriented(5). Motor Response: obeys aj1 commands(6). Total: 15. 23:14 Eye Response: spontaneous(4). Verbal Response: oriented(5). Motor Response: obeys ea commands(6). Total: 15. 06/02 00:05 Eye Response: spontaneous(4). Verbal Response: oriented(5). Motor Response: obeys ea commands(6). Total: 15. Trauma Score (Adult): 06/01 21:51 Eye Response: spontaneous(1); Verbal Response: oriented(1); Motor Response: obeys aj1 commands(2); Systolic BP: > 89 mm Hg(4); Respiratory Rate: 10 to 29 per min(4); Blodgett Score: 15; Trauma Score: 12 ED Course: 21:38 Patient arrived in ED. ds1 21:51 Patient has correct armband on for positive identification. aj1 21:51 Patient maintains SpO2 saturation greater than 95% on room air. aj1 21:55 Triage completed. aj1 21:58 Arm band placed on Patient placed in an exam room. aj1 22:06 Ana Maria Guerra, RN is Primary Nurse. ea 22:36 Radiology exam delayed due to test not completed at this time. kw 22:50 Inserted saline lock: 22 gauge in right forearm, using aseptic technique. Blood ea collected. 22:51 Thermoregulation: warm blanket given to patient. ea 23:09 Seble Horton FNP-C is PHCP. snw 23:09 Geovani Clark MD is Attending Physician. snw 06/02 00:16 CT Head C Spine In Process Unspecified. EDMS 00:33 XRAY Chest (1 view) In Process Unspecified. EDMS 00:33 XRAY Humerus LEFT In Process Unspecified. EDMS 00:49 No provider procedures requiring assistance completed. ea 01:30 IV discontinued, intact, bleeding controlled, No redness/swelling at site. Pressure ea dressing applied. Administered Medications: 00:39 CANCELLED (route change): fentaNYL (PF) 25 mcg IM once; RASS on ADMIN: Combtv4, Very ea Agttd3, Agttd2, Rstlss1, AlertClm0, Drwsy-1, Lt Sdtn-2, Mod Sdtn-3, Dp Sdtn-4, UnArsble-5 00:39 Drug: fentaNYL (PF) 25 mcg {Note: RASS 0.} Route: IVP; Site: right antecubital; ea 01:00 Follow up: Response: No adverse reaction; RASS: Alert and Calm (0) ea 01:26 CANCELLED (Other Intervention Used): [place] 5 mg-325 mg 2 tabs PO once; RASS on ADMIN: ea Combtv4, Very Agttd3, Agttd2, Rstlss1, AlertClm0, Drwsy-1, Lt Sdtn-2, Mod Sdtn-3, Dp Sdtn-4, UnArsble-5 01:27 Drug: [place] 5 mg-325 mg 1 tabs Route: PO; ea 01:35 Follow up: Response: No adverse reaction; RASS: Alert and Calm (0) ea Intake: 01:54 PO: 0ml; Total: 0ml. ea Outcome: 00:32 Discharge ordered by . snw 00:50 Condition: stable ea 01:35 Discharged to home ambulatory, with family. ea 01:35 Discharge instructions given to patient, Instructed on discharge instructions, follow up and referral plans. Demonstrated understanding of instructions, follow-up care. 01:35 Patient's length of stay was not longer than 2 hours. ea 01:35 Patient left the ED. ea Signatures: Dispatcher [employer] EDAnna Marie Simpson, RN RN aj1 Seble Horton, EXECUTIVE CHEF-C EXECUTIVE CHEF-Csnw Annabella Manzo ds1 Jasmyn Plummer Elena RN RN ea Corrections: (The following items were deleted from the chart) 00:40 00:39 fentaNYL (PF) 25 mcg IVP in right antecubital ea ea 01:57 01:56 Patient left the ED. ea ea
[2019-06-02 00:34] LABS: Urine Culture Reflex Order NOT NEEDED
[2019-06-02] MEDS ORDERED: FENTANYL CITR 100 MCG/2 ML ONE (00:37)
[2019-06-02] MEDS ORDERED: ACETAMINOPHEN 325 MG TABLET ONE (01:14)
[2019-06-02] MEDS ORDERED: KETOROLAC 30 MG/ML INJ ONE (01:16)
[2019-06-02] MEDS ORDERED: HYDROCODONE/APAP 5/325 MG TAB ONE (01:24)
[2019-06-02 02:01] VITALS: TEMP 97.8
[2019-06-02 02:07] VITALS: BP 112/80; O2SAT 98
--- NOTE | 2019-06-02 07:13 | RAD REPORT ---
EXAM DESCRIPTION: RAD - Chest Single View - 06/02/2019 12:31 am CLINICAL HISTORY: Syncope, chest pain COMPARISON: April 13, 2019 TECHNIQUE: AP portable chest image was obtained 0024 hours . FINDINGS: Lung volumes are low. No peripheral mass or consolidation. Lung markings and vasculature a re accentuated by the shallow inspiration. Pacemaker has been placed since comparison. Heart and vasc ulature are normal. No measurable pleural effusion and no pneumothorax. No acute bony abnormality see n. No acute aortic findings suspected. IMPRESSION: No acute cardiopulmonary process.
--- NOTE | 2019-06-02 07:14 | RAD REPORT ---
EXAM DESCRIPTION: RAD - Humerus Left - 06/02/2019 12:31 am CLINICAL HISTORY: Fall, left arm pain COMPARISON: None. FINDINGS: No fracture is identified. There is no dislocation or periosteal reaction noted. No forei gn body or other soft tissue abnormality. IMPRESSION: Negative left humerus examination.
--- NOTE | 2019-06-02 11:02 | EKG ---
Test Date: 2019-06-01 Test Time: 22:35:46 Ophthalmology Surgical Technician: MARKELL MEASUREMENT RESULTS: Intervals: Rate: 78 SC: 196 QRSD: 92 QT: 386 QTc: 440 [place]: P: 22 SC: 196 QRS: 23 T: 5 INTERPRETIVE STATEMENTS: Normal sinus rhythm Possible Anterior infarct, age undetermined Abnormal ECG Compared to ECG 04/13/2019 12:25:04 Myocardial infarct finding now present Sinus arrhythmia no longer present Right-axis deviation no longer present T-wave abnormality no longer present Electronically Signed On 06-02-19 11:01:23 CDT by Bg Mujica
--- NOTE | 2019-06-02 18:31 | RAD REPORT ---
EXAM DESCRIPTION: CT - Head C Spine Mpr Wo Con - 06/02/2019 12:53 am CLINICAL HISTORY: The patient is 23 years old and is Female; PAIN TECHNIQUE: Axial computed tomography images of the head/brain and cervical spine without intravenous contrast. Sagittal and coronal reformatted images were created and reviewed. This CT exam was pe rformed using one or more of the following dose reduction techniques: automated exposure control, a djustment of the mA and/or kV according to patient size, and/or use of iterative reconstruction techn ique. COMPARISON: None. FINDINGS: BRAIN: Unremarkable. No hemorrhage. No significant white matter disease. No edema . VENTRICLES: Unremarkable. No ventriculomegaly. SKULL: No acute fracture. SINUSES: Paranasal sinuses are clear. MASTOID AIR CELLS: Mastoid air cells are well pneumatized. ORBITS: Globes and orbits are within normal limits. VERTEBRAE: Reversal of cervical lordosis centered at C6. No acute fracture. DISCS/SPINAL CANAL/NEURAL FORAMINA: No acute findings. No spinal canal stenosis. SOFT TISSUES: Unremarkable. IMPRESSION: 1. No acute intracranial abnormality. 2. No acute cervical spine fracture or subluxation. 3. Reversal of cervical lordosis centered at C6. Electronically signed by: Shimon Figueroa DO 06/02/2019 12:22 AM CDT Due to temporary technical issues with the PACS/Fluency reporting system, reports are being signed by the in house radiologist as a courtesy to ensure prompt reporting. The interpreting radiologist is f ully responsible for the content of the report.
== END 2019-06-02 01:56 | disposition home or self-care (01) ==
LOC: ER 21:35
DX: S00.90XA Unspecified superficial injury of unspecified part of head, initial encounter (principal); S40.022A Contusion of left upper arm, initial encounter; Z72.0 Tobacco use
CPT/HCPCS: 93005; 87088; 85025; 87086; 80048; 36415; 83735; 81025; 85610; 80076; 84484; 83880; 70450; 72125; 71045; 73060; 96374; 99284; Q9967; J3010; 81003; 81015

== ENCOUNTER 2019-08-11 13:21 | Emergency (ER) | payer OTHER ==
[2019-08-11] MEDS ORDERED: NA CHLORIDE 0.9% 1,000 ML ONE (13:43)
[2019-08-11 14:07] LABS: Absolute Lymphocytes (CBC) 2.6 K/uL (0.7-4.9); Basophils % 0.2 % (0-1.3); Hematocrit 41.7 % (36.0-45.0); MPV 7.6 fL (7.6-11.3); RBC Red Blood Cell Count 4.85 M/uL (3.86-4.86)
--- NOTE | 2019-08-11 14:14 | RAD REPORT ---
EXAM DESCRIPTION: CT - Head Brain Wo Cont - 08/11/2019 2:01 pm CLINICAL HISTORY: Syncope COMPARISON: None. TECHNIQUE: Axial 5 mm thick images of the head were obtained without IV contrast. All CT scans are performed using dose optimization technique as appropriate and may include automated exposure control or mA/KV adjustment according to patient size. FINDINGS: No intracranial hemorrhage, mass, edema or shift of mid-line structures. No acute infarcti on changes seen. No abnormal extra-axial fluid collections. Ventricles are normal. Mastoid air cells and visualized portions of the paranasal sinuses are clear. No acute bony findings. IMPRESSION: Negative non-contrast CT head examination.
[2019-08-11 14:21] LABS: Urine Blood NEGATIVE (NEG); Urine Glucose NEGATIVE (NEG); Urine Protein NEGATIVE (NEG); Urine Specific Gravity 1.015 (1.005-1.030)
[2019-08-11 14:24] LABS: Potassium 3.9 mmol/L (3.5-5.1)
[2019-08-11 14:27] LABS: Urine Bacteria <20 /HPF (<20); Urine Culture Reflex Order NOT NEEDED; Urine Mucus SLIGHT /HPF (NONE SEEN); Urine RBC <5 /HPF (NONE SEEN)
--- NOTE | 2019-08-11 14:29 | EDPHYS ---
Physician Documentation [facility] Name: Lara Palacio Age: 24 yrs Sex: Female : 1995 Arrival Date: 08/11/2019 Time: 13:24 Bed 18 Private MD: ED Physician Rommel Elaine HPI: 08/11 13:57 This 24 yrs old Female presents to ER via Ambulatory with complaints of rn Passed Out Prior To Arrival, Back Pain. 13:57 The patient has experienced syncope. Onset: The symptoms/episode began/occurred just rn prior to arrival. Duration: This was a single episode. Context: occurred at work. Associated injury: Head/face:. Current symptoms: headache. The patient has experienced similar episodes in the past. Reports has hx of vasovagal syncope, has pacemaker and takes midodrine. Reports happens atleast twice a month, felt lightheaded, hit head on rack at work, + headache. Also feels like has UTI. Also reports a few days of vomiting and diarrhea and felt like might be dehdyrated. No chest pain. No extremity injury. Denies neck or back injury/pain.. 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 - Social history:: Smoking status: . - Ebola Screening: : Patient denies travel to an Ebola-affected area in the 21 days before illness onset. - Family history:: not pertinent. - Hospitalizations: : No recent hospitalization is reported. ROS: 13:57 Constitutional: Negative for fever, chills, and weight loss, Eyes: Negative for injury, rn pain, redness, and discharge, Neck: Negative for injury, pain, and swelling, Cardiovascular: Negative for chest pain, palpitations, and edema, Respiratory: Negative for shortness of breath, cough, wheezing, and pleuritic chest pain, Abdomen/GI: Negative for abdominal pain, nausea, vomiting, diarrhea, and constipation, Back: Negative for injury and pain, : Negative for injury, bleeding, discharge, and swelling, MS/Extremity: Negative for injury and deformity, Skin: Negative for injury, rash, and discoloration, Neuro: Negative for numbness, tingling, and seizure. Exam: 13:57 Constitutional: This is a well developed, well nourished patient who is awake, alert, rn and in no acute distress. Sitting upright and ambulatory. Head/Face: Normocephalic, atraumatic. Eyes: Pupils equal round and reactive to light, extra-ocular motions intact. Lids and lashes normal. Conjunctiva and sclera are non-icteric and not injected. Cornea within normal limits. Periorbital areas with no swelling, redness, or edema. ENT: dry MM Neck: Trachea midline, no thyromegaly or masses palpated, and no cervical lymphadenopathy. Supple, full range of motion without nuchal rigidity, or vertebral point tenderness. No Meningismus. Cardiovascular: Tachycardic, regular Respiratory: No increased work of breathing, no retractions or nasal flaring. Abdomen/GI: soft, non-tender Back: No spinal tenderness. MS/ Extremity: Pulses equal, no cyanosis. Neurovascular intact. Full, normal range of motion. Equal circumference. Neuro: Awake and alert, GCS 15, oriented to person, place, time, and situation. Cranial nerves II-XII grossly intact. Motor strength 5/5 in all extremities. Sensory grossly intact. Cerebellar exam normal. Normal gait. Vital Signs: 13:34 BP 134 / 97; Pulse 112; Resp 16; Temp 97; Pulse Ox 99% ; Weight 95.25 kg; Height 5 ft. sv 4 in. (162.56 cm); Pain 7/10; 14:16 BP 118 / 71; Pulse 91; Resp 17; Pulse Ox 97% on R/A; tw2 15:09 BP 122 / 79; Pulse 71; Resp 14; Pulse Ox 97% on R/A; tw2 13:34 Body Mass Index 36.05 (95.25 kg, 162.56 cm) sv MDM: 13:29 Patient medically screened. rn 14:28 Differential Diagnosis: vasovagal episode, dehydration, orthostatic hypotension, viral rn syndrome. Data reviewed: vital signs, nurses notes, lab test result(s), EKG, radiologic studies, CT scan, and as a result, I will discharge patient. Counseling: I had a detailed discussion with the patient and/or guardian regarding: the historical points, exam findings, and any diagnostic results supporting the discharge/admit diagnosis, lab results, radiology results, the need for outpatient follow up, to return to the emergency department if symptoms worsen or persist or if there are any questions or concerns that arise at home. Response to treatment: the patient's symptoms have markedly improved after treatment, and as a result, I will discharge patient. Special discussion: I discussed with the patient/guardian in detail that at this point there is no indication for admission to the hospital. It is understood, however, that if the symptoms persist or worsen the patient needs to return immediately for re-evaluation. 08/11 13:38 Order name: CBC with Diff; Complete Time: 14:26 08/11 13:38 Order name: Basic Metabolic Panel; Complete Time: 14:26 08/11 13:38 Order name: CT Head Brain wo Cont; Complete Time: 14:26 08/11 13:38 Order name: Urine Microscopic Only; Complete Time: 14:28 08/11 14:01 Order name: Urine Dipstick--Ancillary (enter results); Complete Time: 14:26 08/11 14:01 Order name: Urine --Ancillary (enter results); Complete Time: 14:26 08/11 13:38 Order name: IV Start; Complete Time: 13:59 rn 08/11 13:38 Order name: Urine Test (obtain specimen); Complete Time: 13:59 08/11 13:38 Order name: Urine Dipstick-Ancillary (obtain specimen); Complete Time: 14:00 rn 08/11 13:38 Order name: EKG; Complete Time: 13:39 rn 08/11 13:38 Order name: EKG - Nurse/Tech; Complete Time: 14:35 rn Administered Medications: 14:15 Drug: NS 0.9% 1000 ml Route: IV; Rate: 1000 ml; Site: left antecubital; tw2 15:10 Follow up: Response: No adverse reaction; IV Status: Completed infusion; IV Intake: tw2 1000ml 14:48 Drug: [place] 5 mg-325 mg 1 tabs Route: PO; tw2 15:10 Follow up: Response: No adverse reaction; Pain is decreased; RASS: Alert and Calm (0) tw2 Disposition: 08/11/19 14:28 Discharged to Home. Impression: Syncope and collapse, Dehydration. - Condition is Stable. - Discharge Instructions: Dehydration, Adult, Syncope. - Medication Reconciliation Form, Thank You Letter, Antibiotic Education, Prescription Opioid Use, Work release form form. - Follow up: Private Physician; When: As needed; Reason: Recheck today's complaints, Re-evaluation by your physician. - Problem is new. - Symptoms have improved. Signatures: Dispatcher [employer] Bridgette Chavarria RN Rommel Cortés MD MD rn Wise, LORNE Grewal RN tw2 Corrections: (The following items were deleted from the chart) 15:14 14:28 08/11/2019 14:28 Discharged to Home. Impression: Syncope and collapse; tw2 Dehydration. Condition is Stable. Forms are Work release form, Medication Reconciliation Form, Thank You Letter, Antibiotic Education, Prescription Opioid Use. Follow up: Private Physician; When: As needed; Reason: Recheck today's complaints, Re-evaluation by your physician. Problem is new. Symptoms have improved. rn
--- NOTE | 2019-08-11 14:29 | ER ---
Nurse's Notes [facility] Name: Lara Palacio Age: 24 yrs Sex: Female : 1995 Arrival Date: 08/11/2019 Time: 13:24 Bed 18 Private MD: Diagnosis: Syncope and collapse;Dehydration Presentation: 08/11 13:23 Presenting complaint: Patient states: "I passed out at work today and they made me come sv in but this is not like my normal passing out because I have vasovagal syncope and I take medicine for it but I didn't take my medicine at the normal time. c/o right mid back pain that radiates to right flank,v/d for a few days as well. Reports hitting her head on the metal racks at work. Transition of care: patient was not received from another setting of care. Onset of symptoms was August 11, 2019. Risk Assessment: Do you want to hurt yourself or someone else? Patient reports no desire to harm self or others. Initial Sepsis Screen: Does the patient meet any 2 criteria? HR > 90 bpm. No. Patient's initial sepsis screen is negative. Does the patient have a suspected source of infection? No. Patient's initial sepsis screen is negative. Care prior to arrival: Medication(s) given: Tylenol # 3 \\T\\ 0900. 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 - Social history:: Smoking status: . - Ebola Screening: : Patient denies travel to an Ebola-affected area in the 21 days before illness onset. - Family history:: not pertinent. - Hospitalizations: : No recent hospitalization is reported. Screenin:37 Abuse screen: Denies threats or abuse. Nutritional screening: No deficits noted. tw2 Tuberculosis screening: No symptoms or risk factors identified. Fall Risk None identified. Assessment: 13:25 General: Appears in no apparent distress. Behavior is calm, cooperative, appropriate tw2 for age. Pain: Complains of pain in umbilical area. Neuro: Level of Consciousness is awake, alert, obeys commands, Oriented to person, place, situation. Cardiovascular: Heart tones S1 S2 Patient's skin is warm and dry. Respiratory: Airway is patent Respiratory effort is even, unlabored, Respiratory pattern is regular, symmetrical, Breath sounds are clear bilaterally. : No signs and/or symptoms were reported regarding the genitourinary system. EENT: No signs and/or symptoms were reported regarding the EENT system. Derm: Skin is intact, is healthy with good turgor, Skin is dry, Skin temperature is warm. Musculoskeletal: Range of motion: intact in all extremities. 13:25 Neuro: Reports headache and LOC prior to arrival. : Reports urinary frequency, flank tw2 pain. 14:19 GI: No signs and/or symptoms were reported involving the gastrointestinal system. tw2 14:31 Reassessment: provider at bedside at this time. tw2 15:09 Reassessment: Patient appears in no apparent distress at this time. No changes from tw2 previously documented assessment. Patient and/or family updated on plan of care and expected duration. Pain level reassessed. Patient is alert, oriented x 3, equal unlabored respirations, skin warm/dry/pink. Vital Signs: 13:34 BP 134 / 97; Pulse 112; Resp 16; Temp 97; Pulse Ox 99% ; Weight 95.25 kg; Height 5 ft. sv 4 in. (162.56 cm); Pain 7/10; 14:16 BP 118 / 71; Pulse 91; Resp 17; Pulse Ox 97% on R/A; tw2 15:09 BP 122 / 79; Pulse 71; Resp 14; Pulse Ox 97% on R/A; tw2 13:34 Body Mass Index 36.05 (95.25 kg, 162.56 cm) sv ED Course: 13:23 Placed in gown. Bed in low position. rod finisher on. Pulse ox on. NIBP on. tw2 13:24 Patient arrived in ED. mr 13:29 Rommel Elaine MD is Attending Physician. rn 13:33 Triage completed. sv 13:34 Arm band placed on. sv 13:36 Severino, Carmina, RN is Primary Nurse. tw2 13:[address] sw 13:53 Inserted saline lock: 22 gauge in left antecubital area, using aseptic technique. Blood hb collected. 13:[address] via wheelchair. sw 14:03 CT Head Brain wo Cont In Process Unspecified. EDMS 14:17 EKG done, by handling tech. reviewed by Rommel Elaine MD. at1 14:36 Awaiting: completion of IV fluids PRIOR to discharge. tw2 15:10 No provider procedures requiring assistance completed. IV discontinued, intact, tw2 bleeding controlled, No redness/swelling at site. Pressure dressing applied. Administered Medications: 14:15 Drug: NS 0.9% 1000 ml Route: IV; Rate: 1000 ml; Site: left antecubital; tw2 15:10 Follow up: Response: No adverse reaction; IV Status: Completed infusion; IV Intake: tw2 1000ml 14:48 Drug: Dix 5 mg-325 mg 1 tabs Route: PO; tw2 15:10 Follow up: Response: No adverse reaction; Pain is decreased; RASS: Alert and Calm (0) tw2 Intake: 15:10 IV: 1000ml; Total: 1000ml. tw2 Outcome: 14:28 Discharge ordered by . rn 15:10 Discharged to home ambulatory, with family. tw2 15:10 Condition: stable 15:10 Discharge instructions given to patient, family, Instructed on discharge instructions, follow up and referral plans. Demonstrated understanding of instructions, follow-up care. 15:14 Patient left the ED. tw2 Signatures: Dispatcher [employer] EDMI Bridgette Cali RN RN sv Rivera, Mary mr Nieto, Roman, MD MD rn Gonzales, Amanda, international sourcing manager EKG Tat1 Jasmine Vinson Heather, RN RN hb Wise, Tara, RN RN tw2 Corrections: (The following items were deleted from the chart) 14:21 13:25 GI: Abdomen is flat, Bowel sounds present X 4 quads. Reports nausea, vomiting, tw2 since 3 hours tw2 14:21 13:25 Derm: Skin is healthy with good turgor, is fragile, is thin, Skin is dry, Skin tw2 temperature is warm tw2
[2019-08-11] MEDS ORDERED: HYDROCODONE/APAP 5/325 MG TAB ONE (14:45)
--- NOTE | 2019-08-11 18:23 | EKG ---
Test Date: 2019-08-11 Test Time: 14:09:29 Parking Worker: JOHANA MEASUREMENT RESULTS: Intervals: Rate: 89 [place]: 162 QRSD: 84 QT: 352 QTc: 428 [place]: P: 45 WA: 162 QRS: 52 T: 16 INTERPRETIVE STATEMENTS: Normal sinus rhythm Cannot rule out Anterior infarct, age undetermined Abnormal ECG Compared to ECG 06/01/2019 22:35:46 No significant changes Electronically Signed On 08-11-19 18:22:06 INSTRUMENT CALIBRATOR by Ammon Villa
[2019-08-11 18:43] VITALS: TEMP 97
[2019-08-11 18:45] VITALS: O2SAT 97
[2019-08-11 18:47] VITALS: BP 122/79
== END 2019-08-11 15:14 | disposition home or self-care (01) ==
LOC: ER 13:21
DX: R55 Syncope and collapse (principal); E86.0 Dehydration; F41.9 Anxiety disorder, unspecified
CPT/HCPCS: 93005; 85025; 80048; 36415; 81025; 70450; 96360; 99285; J7030; 81003; 81015

== ENCOUNTER 2019-10-05 20:51 | Emergency (ER) | payer BC, OTHER ==
[2019-10-05] MEDS ORDERED: NA CHLORIDE 0.9% 1,000 ML ONE (21:52)
[2019-10-05] MEDS ORDERED: IBUPROFEN 400 MG TAB ONE (22:20)
[2019-10-05] MEDS ORDERED: IBUPROFEN 200 MG TAB PO ONE (22:20)
[2019-10-05 22:28] LABS: Absolute Lymphocytes (CBC) 3.1 K/uL (0.7-4.9); Basophils % 0.4 % (0-1.3); Hematocrit 40.5 % (36.0-45.0); Lymphocytes % 47.8 % (15.3-44.8); MPV 7.9 fL (7.6-11.3); RBC Red Blood Cell Count 4.67 M/uL (3.86-4.86)
[2019-10-05 22:36] LABS: BUN Blood Urea Nitrogen 15 mg/dL (7-18); Bicarbonate 30 mmol/L (21-32); Glucose Level 90 mg/dL (74-106); Magnesium 2.1 mg/dL (1.8-2.4); Potassium 4.1 mmol/L (3.5-5.1); Sodium Level 140 mmol/L (136-145); Troponin I < 0.02 ng/mL (0.0-0.045)
--- NOTE | 2019-10-05 22:49 | EDPHYS ---
Physician Documentation [facility] Name: Lara Palacio Age: 24 yrs Sex: Female : 1995 Arrival Date: 10/05/2019 Time: 20:57 Bed 25 Private MD: KATIE Physician Geovani Clark HPI: 10/05 21:51 This 24 yrs old Female presents to ER via Wheelchair with complaints of LOW la1 BP. 21:51 The patient has experienced syncope, collapsed. Onset: The symptoms/episode la1 began/occurred just prior to arrival. Duration: This was a single episode. Context: the episode(s) was witnessed, by co-worker(s), Just prior to the episode the patient experienced dizziness. Associated injury: Right lower extremity: right knee, pain. Associated signs and symptoms: The patient has no apparent associated signs or symptoms. Current symptoms: Currently, the patient is not experiencing any symptoms, the patient feels back to baseline. The patient has experienced similar episodes in the past, chronically, today's symptoms are similar. pt with long standing cardiac hx, reports she passes out about once a week and does not usually come to the ER but this happened at work so they told her she has to come, reports pain in right hip and right knee, reports BP was low at work.. Historical: - Allergies: 21:27 No Known Allergies; ca1 - PMHx: 21:27 Anxiety; BRADYCARDIA; Myocardial infarction; Pacemaker; sick sinus syndrome; SVT; ca1 Vasovagal syndrome; - PSHx: 21:27 Pacemaker; Tonsillectomy; ca1 - Immunization history:: Adult Immunizations up to date, Flu vaccine is not up to date. - Coronavirus screen:: The patient has NOT traveled to [place], [place], or [place] in the past 14 days. The patient has NOT had contact with known/suspected case of Coronavirus?. - Social history:: Smoking status: Patient reports the use of cigarette tobacco products, denies chronic smoking, but will smoke occasionally. - Ebola Screening: : Patient negative for fever greater than or equal to 101.5 degrees Fahrenheit, and additional compatible Ebola Virus Disease symptoms Patient denies exposure to infectious person Patient denies travel to an Ebola-affected area in the 21 days before illness onset No symptoms or risks identified at this time. ROS: 21:55 Constitutional: Negative for fever, chills, and weight loss, Eyes: Negative for injury, la1 pain, redness, and discharge, ENT: Negative for injury, pain, and discharge, Neck: Negative for injury, pain, and swelling, Cardiovascular: Negative for chest pain, palpitations, and edema, Respiratory: Negative for shortness of breath, cough, wheezing, and pleuritic chest pain, Abdomen/GI: Negative for abdominal pain, nausea, vomiting, diarrhea, and constipation, Back: Negative for injury and pain, MS/Extremity: Negative for injury and deformity. 21:55 Psych: Negative for depression, anxiety, suicide ideation, homicidal ideation, and hallucinations, Endocrine: Negative for neck swelling, polydipsia, polyuria, polyphagia, and marked weight changes. 21:55 Neuro: Positive for dizziness. Exam: 21:57 Abdomen/GI: Exam negative for acute changes. la1 21:57 Constitutional: This is a well developed, well nourished patient who is awake, alert, and in no acute distress. Head/Face: Normocephalic, atraumatic. Eyes: Pupils equal round and reactive to light, extra-ocular motions intact. Lids and lashes normal. Conjunctiva and sclera are non-icteric and not injected. Cornea within normal limits. Periorbital areas with no swelling, redness, or edema. Neck: Trachea midline, Chest/axilla: Normal chest wall appearance and motion. Nontender with no deformity. No lesions are appreciated. Cardiovascular: Regular rate and rhythm with a normal S1 and S2. No gallops, murmurs, or rubs. Normal PMI, no JVD. No pulse deficits. Respiratory: Lungs have equal breath sounds bilaterally, clear to auscultation Abdomen/GI: Soft, non-tender, with normal bowel sounds. No distension or tympany. No guarding or rebound. No evidence of tenderness throughout. Back: No spinal tenderness. No costovertebral tenderness. Full range of motion. Skin: Warm, dry with normal turgor. Normal color with no rashes, no lesions, and no evidence of cellulitis. MS/ Extremity: Pulses equal, no cyanosis. Neurovascular intact. Full, normal range of motion. Neuro: Awake and alert, GCS 15, oriented to person, place, time, and situation. Normal gait. Vital Signs: 21:27 BP 130 / 77; Pulse 86; Resp 17 S; Temp 98.5(O); Pulse Ox 98% on R/A; Pain 6/10; ca1 22:25 BP 115 / 77; Pulse 73; Resp 18; Pulse Ox 98% on R/A; wh 23:30 BP 107 / 58; Pulse 72; Resp 18; Pulse Ox 97% on R/A; wh MDM: 21:19 Patient medically screened. la1 22:47 Data reviewed: vital signs, nurses notes, lab test result(s), EKG, radiologic studies, la1 I have discussed the patient's presentation/case with the attending Emergency Department Physician; and as a result, I will discharge patient. Data interpreted: Pulse oximetry: on room air is 98 %. Interpretation: normal. Test interpretation: by ED physician or midlevel provider: plain radiologic studies. 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 Special discussion: Based on the patient's history, exam, and Dx evaluation, there is no indication for emergent intervention or inpatient Tx. It is understood by the patient/guardian that if the Sx's persist or worsen they need to return immediately for re-evaluation. 10/05 21:30 Order name: CBC with Diff 10/05 21:30 Order name: BMP 10/05 21:30 Order name: Magnesium 10/05 21:30 Order name: Troponin I 10/05 22:29 Order name: CBC with Automated Diff; Complete Time: 22:46 EDMS 10/05 22:37 Order name: Basic Metabolic Panel; Complete Time: 22:46 EDMS 10/05 21:30 Order name: EKG; Complete Time: 21:51 10/05 21:34 Order name: Knee Right 3 View XRAY 10/05 22:37 Order name: Troponin I; Complete Time: 22:46 EDMS 10/05 22:37 Order name: Magnesium; Complete Time: 22:46 EDMS 10/05 21:30 Order name: IV; Complete Time: 22:09 10/05 21:30 Order name: EKG - Nurse/Tech; Complete Time: 21:45 la1 EC:07 Rate is 71 beats/min. Rhythm is regular. QRS [place] is Normal. MI interval is normal. QRS la1 interval is normal. QT interval is normal. No Q waves. T waves are Inverted in leads aVR, V1. Administered Medications: 22:11 Drug: NS 0.9% 1000 ml Route: IV; Rate: 1000 ml; Site: right wrist; 23:55 Follow up: Response: No adverse reaction; IV Status: Completed infusion 22:19 Drug: Motrin 600 mg Route: PO; 23:56 Follow up: Response: No adverse reaction 23:50 Drug: Vanzant 5 mg-325 mg 1 tabs Route: PO; 23:56 Follow up: Response: No adverse reaction; Pain is decreased; RASS: Alert and Calm (0) 23:55 Not Given (Patient Refused): Tylenol #3 (300 mg-30 mg) 1 tablet PO once; RASS on ADMIN: Combtv4, Very Agttd3, Agttd2, Rstlss1, AlertClm0, Drwsy-1, Lt Sdtn-2, Mod Sdtn-3, Dp Sdtn-4, UnArsble-5 Disposition: 10/06 07:01 Co-signature as Attending Physician, Geovani Clark MD I agree with the assessment and [facility] plan of care. Disposition: 10/05/19 22:47 Discharged to Home. Impression: Syncope and collapse. - Condition is Stable. - Discharge Instructions: Near-Syncope, Syncope, Knee Pain, Hip Pain. - Medication Reconciliation Form, Thank You Letter form. - Follow up: Private Physician; When: 2 - 3 days; Reason: Recheck today's complaints, Re-evaluation by your physician. - Problem is new. - Symptoms have improved. Signatures: Dispatcher [employer] Geovani Tijerina MD MD cha Attema, Lee, FOREIGN DIPLOMAT-C FOREIGN DIPLOMAT-Cla1 Marek Cardona Stormy Lawson RN RN ca1 Corrections: (The following items were deleted from the chart) 00:01 02 22:47 10/05/2019 22:47 Discharged to Home. Impression: Syncope and collapse. Condition is Stable. Forms are Medication Reconciliation Form, Thank You Letter, Antibiotic Education, Prescription Opioid Use. Follow up: Private Physician; When: 2 - 3 days; Reason: Recheck today's complaints, Re-evaluation by your physician. Problem is new. Symptoms have improved. la1
--- NOTE | 2019-10-05 22:49 | ER ---
Nurse's Notes [facility] Name: Lara Palacio Age: 24 yrs Sex: Female : 1995 Arrival Date: 10/05/2019 Time: 20:57 Bed 25 Private MD: Diagnosis: Syncope and collapse Presentation: 10/05 21:14 Presenting complaint: Patient states: I have a pacemaker since May 2020, about an ca1 hour ago my BP was 112/64 and HR at 179. I also passed out and fell on a step ladder and landed on my R side. Denies N/V/Dizziness/lightheadedness. Transition of care: patient was not received from another setting of care. Onset of symptoms was October 05, 2019. Risk Assessment: Do you want to hurt yourself or someone else? Patient reports no desire to harm self or others. Initial Sepsis Screen: Does the patient meet any 2 criteria? No. Patient's initial sepsis screen is negative. Does the patient have a suspected source of infection? No. Patient's initial sepsis screen is negative. Care prior to arrival: None. 21:14 Method Of Arrival: Wheelchair ca1 21:14 Acuity: DEEPA 3 ca1 Historical: - Allergies: 21:27 No Known Allergies; ca1 - PMHx: 21:27 Anxiety; BRADYCARDIA; Myocardial infarction; Pacemaker; sick sinus syndrome; SVT; ca1 Vasovagal syndrome; - PSHx: 21:27 Pacemaker; Tonsillectomy; ca1 - Immunization history:: Adult Immunizations up to date, Flu vaccine is not up to date. - Coronavirus screen:: The patient has NOT traveled to [place], [place], or [place] in the past 14 days. The patient has NOT had contact with known/suspected case of Coronavirus?. - Social history:: Smoking status: Patient reports the use of cigarette tobacco products, denies chronic smoking, but will smoke occasionally. - Ebola Screening: : Patient negative for fever greater than or equal to 101.5 degrees Fahrenheit, and additional compatible Ebola Virus Disease symptoms Patient denies exposure to infectious person Patient denies travel to an Ebola-affected area in the 21 days before illness onset No symptoms or risks identified at this time. Screenin:30 Abuse screen: Denies threats or abuse. Denies injuries from another. Nutritional wh screening: No deficits noted. Tuberculosis screening: No symptoms or risk factors identified. Fall Risk None identified. Assessment: 21:30 General: Appears in no apparent distress. Behavior is calm, cooperative, appropriate wh for age. Pain: Denies pain. Neuro: Level of Consciousness is awake, alert, obeys commands, Oriented to person, place, time, situation, Appropriate for age. Cardiovascular: Reports low blood pressure Heart tones S1 S2 Rhythm is regular. Respiratory: Airway is patent Respiratory effort is even, unlabored, Respiratory pattern is regular, symmetrical, Breath sounds are clear bilaterally. GI: Abdomen is flat, non-distended. : No signs and/or symptoms were reported regarding the genitourinary system. EENT: No signs and/or symptoms were reported regarding the EENT system. Derm: Skin is intact, is healthy with good turgor, Skin is pink, warm \T\ dry. normal. Musculoskeletal: Circulation, motion, and sensation intact. 22:24 Reassessment: Patient appears in no apparent distress at this time. No changes from previously documented assessment. Patient and/or family updated on plan of care and expected duration. Pain level reassessed. Patient is alert, oriented x 3, equal unlabored respirations, skin warm/dry/pink. 23:56 Reassessment: Patient appears in no apparent distress at this time. No changes from previously documented assessment. Patient and/or family updated on plan of care and expected duration. Pain level reassessed. Patient is alert, oriented x 3, equal unlabored respirations, skin warm/dry/pink. Pt DC was held, per provider just consume IVF before discharging Pt. Vital Signs: 21:27 BP 130 / 77; Pulse 86; Resp 17 S; Temp 98.5(O); Pulse Ox 98% on R/A; Pain 6/10; ca1 22:25 BP 115 / 77; Pulse 73; Resp 18; Pulse Ox 98% on R/A; wh 23:30 BP 107 / 58; Pulse 72; Resp 18; Pulse Ox 97% on R/A; ED Course: 20:57 Patient arrived in ED. jg7 21:14 Marek Cardona is Primary Nurse. wh 21:19 Jeet Hartman FNP-C is [facility]. la1 21:19 Geovani Clark MD is Attending Physician. la1 21:26 Triage completed. ca1 21:27 Arm band placed on right wrist. ca1 21:55 Missed attempt(s): 22 gauge in left antecubital area. Bleeding controlled, band aid jp3 applied, catheter tip intact. 22:05 Initial lab(s) drawn, by me, sent to lab. EKG done, by ED staff, reviewed by Jeet ortiz WHEEL LACER AND TRUER-C. Inserted saline lock: 24 gauge in right wrist, using aseptic technique. Blood collected. Patient maintains SpO2 saturation greater than 95% on room air. 22:09 Bed in low position. Call light in reach. Side rails up X 1. Warm blanket given. Verbal jp3 reassurance given. play therapist on. Pulse ox on. NIBP on. 22:09 Troponin I Sent. jp3 22:09 Magnesium Sent. jp3 22: BMP Sent. jp3 22: CBC with Diff Sent. jp3 10/06 00:00 No provider procedures requiring assistance completed. IV discontinued, intact. 05:57 Knee Right 3 View XRAY In Process Unspecified. EDMS Administered Medications: 03 22:11 Drug: NS 0.9% 1000 ml Route: IV; Rate: 1000 ml; Site: right wrist; 23:55 Follow up: Response: No adverse reaction; IV Status: Completed infusion 22:19 Drug: Motrin 600 mg Route: PO; 23:56 Follow up: Response: No adverse reaction 23:50 Drug: Boscobel 5 mg-325 mg 1 tabs Route: PO; 23:56 Follow up: Response: No adverse reaction; Pain is decreased; RASS: Alert and Calm (0) 23:55 Not Given (Patient Refused): Tylenol #3 (300 mg-30 mg) 1 tablet PO once; RASS on ADMIN: Combtv4, Very Agttd3, Agttd2, Rstlss1, AlertClm0, Drwsy-1, Lt Sdtn-2, Mod Sdtn-3, Dp Sdtn-4, UnArsble-5 Outcome: 22:47 Discharge ordered by MD. pearson 02 00:00 Discharged to home ambulatory, with friend. Condition: stable Discharge instructions given to patient, Instructed on discharge instructions, follow up and referral plans. POC Demonstrated understanding of instructions, follow-up care, POC 00:01 Patient left the ED. Signatures: Dispatcher [employer] EDMS Jeet Hartman, WHEEL LACER AND TRUER-C WHEEL LACER AND TRUER-Cla1 Marek Cardona Jacob jp3 Stormy Lawson, RN RN ca1 Sindi Hutchinson7
[2019-10-05] MEDS ORDERED: CODEINE 30MG/APAP 300MG TAB ONE (23:46)
[2019-10-05] MEDS ORDERED: HYDROCODONE/APAP 5/325 MG TAB ONE (23:52)
[2019-10-06 00:26] VITALS: TEMP 98.5
[2019-10-06 00:29] VITALS: BP 107/58; O2SAT 97
--- NOTE | 2019-10-06 06:33 | EKG ---
Test Date: 2019-10-05 Test Time: 21:39:23 Tire Recapping Machine Operator: DIRK MEASUREMENT RESULTS: Intervals: Rate: 71 PA: 170 QRSD: 86 QT: 406 QTc: 441 [place]: P: 53 PA: 170 QRS: 87 T: 43 INTERPRETIVE STATEMENTS: Normal sinus rhythm Low voltage QRS Otherwise normal ECG Compared to ECG 08/11/2019 14:09:29 Low QRS voltage now present Myocardial infarct finding no longer present Electronically Signed On 10-06-19 06:32:35 DATA OPERATIONS MANAGER by Bg Mujica
--- NOTE | 2019-10-06 06:43 | RAD REPORT ---
EXAM DESCRIPTION: RAD - Knee Right 3 View - 10/05/2019 10:16 pm CLINICAL HISTORY: PAIN Fall, pain COMPARISON: No comparisons FINDINGS: No fracture or dislocation seen. No joint effusion evident.
== END 2019-10-06 00:01 | disposition home or self-care (01) ==
LOC: ER 20:51
DX: R55 Syncope and collapse (principal); R00.1 Bradycardia, unspecified; Z72.0 Tobacco use; Z95.0 Presence of cardiac pacemaker
CPT/HCPCS: 96361; 93005; 85025; 80048; 36415; 83735; 84484; 73562; 96360; 99285; J7030

== ENCOUNTER 2021-02-12 15:19 | Emergency (ER) | payer BC ==
[2021-02-12] MEDS ORDERED: MEPERIDINE HCL 25 MG/ML SYR ONE (16:15)
[2021-02-12] MEDS ORDERED: NA CHLORIDE 0.9% 1,000 ML ONE (16:15)
[2021-02-12 16:27] LABS: Absolute Lymphocytes (CBC) 2.3 K/uL (0.7-4.9); Basophils % 0.4 % (0-1.3); Hematocrit 41.1 % (36.0-45.0); Lymphocytes % 30.9 % (15.3-44.8); MPV 7.8 fL (7.6-11.3); RBC Red Blood Cell Count 4.78 M/uL (3.86-4.86)
--- NOTE | 2021-02-12 16:44 | RAD REPORT ---
EXAM DESCRIPTION: RAD - Chest Single View - 02/12/2021 4:34 pm CLINICAL HISTORY: CHEST PAIN Chest pain. COMPARISON: Chest Single View dated 06/02/2019; Chest Single View dated 04/13/2019; Chest Single View dated 11/15/2018 FINDINGS: Portable technique limits examination quality. The lungs are grossly clear. The heart is normal in size. No displaced fractures.Dual lead pacer byron ce present. IMPRESSION: No acute intrathoracic process suspected.
--- NOTE | 2021-02-12 16:56 | RAD REPORT ---
EXAM DESCRIPTION: CT - Head Brain Wo Cont - 02/12/2021 4:49 pm CLINICAL HISTORY: HEADACHE Headache, drowsiness, visual disturbances COMPARISON: Head angio dated 02/12/2021; Head Brain Wo Cont dated 08/11/2019 TECHNIQUE: All CT scans are performed using dose optimization technique as appropriate and may inclu de automated exposure control or mA/KV adjustment according to patient size. FINDINGS: No intracranial hemorrhage, hydrocephalus or extra-axial fluid collection.No areas of brai n edema or evidence of midline shift. The paranasal sinuses and mastoids are clear. The calvarium is intact. IMPRESSION: No acute intracranial abnormality.
--- NOTE | 2021-02-12 16:59 | RAD REPORT ---
EXAM DESCRIPTION: CT - Head angio - 02/12/2021 4:49 pm CLINICAL HISTORY: high BP;Headache Headache, drowsiness, hypertension COMPARISON: Head Brain Wo Cont dated 08/11/2019 TECHNIQUE: CT angiography of the head was performed with MIPs. All CT scans are performed using dose optimization technique as appropriate and may include automated exposure control or mA/KV adjustment according to patient size. FINDINGS: No evidence of aneurysm is detected. No flow-limiting stenosis or vascular malformation id entified. Antegrade flow is seen in the vertebral arteries. The vertebral arteries are codominant. The visualized dural venous sinuses are patent. IMPRESSION: No significant flow abnormality is detected.
--- NOTE | 2021-02-12 17:05 | RAD REPORT ---
EXAM DESCRIPTION: CT - Neck Angio - 02/12/2021 4:49 pm CLINICAL HISTORY: HEADACHE Headache, hypertension, drowsiness COMPARISON: Head C Spine Mpr Wo Con dated 06/01/2019 TECHNIQUE: CT angiography of the neck vessels was performed with MIPs. All CT scans are performed using dose optimization technique as appropriate and may include automated exposure control or mA/KV adjustment according to patient size. FINDINGS: A left aortic arch is identified with normal three vessel configuration of the great vesse ls. No significant flow abnormality is seen of the common carotid bilaterally. No significant stenosis is identified involving the cervical segments of both internal carotid arteri es. Normal flow is seen within both vertebral arteries. IMPRESSION: No significant flow abnormality of the neck vessels is identified.
--- NOTE | 2021-02-12 17:36 | ER ---
Nurse's Notes [facility] Name: Lara Palacio Age: 25 yrs Sex: Female : 1995 Arrival Date: 02/12/2021 Time: 15:19 Bed 17 Private MD: Diagnosis: Hypertension;Headache Presentation: 02/12 15:28 Initial Sepsis Screen: Does the patient meet any 2 criteria? No. Patient's initial ae4 sepsis screen is negative. Risk Assessment: Do you want to hurt yourself or someone else? Patient reports no desire to harm self or others. Onset of symptoms was February 07, 2021. 15:28 Acuity: DEEPA 2 ae4 15:44 Chief complaint: Patient states: Patient reports blurred vision, "black dots" in field ae4 of vision, headache, nausea, and high BP x 5 days. Coronavirus screen: Client denies travel out of the [place] in the last 14 days. Ebola Screen: Patient negative for fever greater than or equal to 101.5 degrees Fahrenheit, and additional compatible Ebola Virus Disease symptoms Patient denies exposure to infectious person. Patient denies travel to an Ebola-affected area in the 21 days before illness onset. 15:44 Method Of Arrival: Ambulatory ae4 16:22 Initial Sepsis Screen: Does the patient have a suspected source of infection? No. ph Patient's initial sepsis screen is negative. Triage Assessment: 15:49 Headache History: Denies prior headaches. General: Appears uncomfortable, Behavior is ae4 cooperative, anxious, crying. Pain: Complains of pain in neck, back of neck, face and scalp Pain currently is 8 out of 10 on a pain scale. Pain began gradually, 4-5 days prior. Neuro: Level of Consciousness is awake, alert, obeys commands, Oriented to person, place, time, situation, Appropriate for age. Respiratory: Airway is patent Respiratory effort is even, unlabored, Respiratory pattern is regular, symmetrical. 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 Last tetanus immunization: up to date Flu vaccine is not up to date. - Social history:: Smoking status: Patient denies any tobacco usage or history of. - Family history:: not pertinent. - Hospitalizations: : No recent hospitalization is reported. Screenin:00 Abuse screen: Denies threats or abuse. Denies injuries from another. Nutritional ph screening: No deficits noted. Tuberculosis screening: No symptoms or risk factors identified. Fall Risk None identified. Assessment: 15:51 Reassessment: FSBS 90. ae4 16:17 General: Appears in no apparent distress. uncomfortable, well groomed, Behavior is ph calm, cooperative, appropriate for age, Denies fever, feeling ill. Pain: Complains of pain in head and back of neck. Neuro: Level of Consciousness is awake, alert, obeys commands, Oriented to person, place, time, situation, Pupils are PERRLA, Reports blurred vision dizziness, headache in entire. Cardiovascular: Denies chest pain, shortness of breath, Capillary refill < 3 seconds in bilateral fingers Patient's skin is warm and dry. Respiratory: Airway is patent Respiratory effort is even, unlabored. Derm: Skin is intact, is healthy with good turgor, Skin is pink, warm \\T\\ dry. Musculoskeletal: Circulation, motion, and sensation intact. Range of motion: intact in all extremities. 17:13 Reassessment: Patient appears in no apparent distress at this time. Patient and/or ph family updated on plan of care and expected duration. Pain level reassessed. Patient is alert, oriented x 3, equal unlabored respirations, skin warm/dry/pink. 17:40 Reassessment: Patient appears in no apparent distress at this time. Patient and/or ph family updated on plan of care and expected duration. Pain level reassessed. Patient is alert, oriented x 3, equal unlabored respirations, skin warm/dry/pink. D/C pending completion of IV fluids. Vital Signs: 15:28 BP 155 / 102; Pulse 83; Resp 19; Temp 98.4(O); Pulse Ox 100% on R/A; Weight 104.33 kg ae4 (R); Pain 8/10; 15:33 BP 146 / 100; Pulse 80; Resp 19; Pulse Ox 98% on R/A; ae4 16:22 BP 144 / 101; Pulse 55; Resp 18; Pulse Ox 98% on R/A; ph 17:15 BP 113 / 78; Pulse 63; Resp 18; Pulse Ox 98% on R/A; ph 18:19 BP 105 / 70; Pulse 64; Resp 18; Temp 98.2; Pulse Ox 99% on R/A; ph ED Course: 15:19 Patient arrived in ED. as 15:23 Rommel Elaine MD is Attending Physician. rn 15:46 Sara Greene RN is Primary Nurse. ph 15:47 Triage completed. ae4 15:50 Arm band placed on right wrist. ae4 15:52 Bed in low position. Pulse ox on. NIBP on. ae4 16:00 Missed attempt(s): 20 gauge in right antecubital area. Bleeding controlled, band aid dh3 applied, catheter tip intact. 16:04 Initial lab(s) drawn, by wa, sent to lab. Inserted saline lock: 22 gauge in left dh3 forearm, using aseptic technique. 16:25 EKG done, by ED staff, reviewed by Rommel Elaine MD. dh3 16:34 XRAY Chest (1 view) In Process Unspecified. EDMS 16:49 CT Head Brain wo Cont In Process Unspecified. EDMS 16:49 CT Head Angio In Process Unspecified. EDMS 16:[address] In Process Unspecified. EDMS 18:20 No provider procedures requiring assistance completed. IV discontinued, intact, ph bleeding controlled, No redness/swelling at site. Pressure dressing applied. Administered Medications: 16:17 Drug: NS 0.9% 1000 ml Route: IV; Rate: 1000 ml; Site: left forearm; ph 18:00 Follow up: Response: No adverse reaction; IV Status: Completed infusion; IV Intake: ph 1000ml 16:17 Drug: Demerol (meperidine) 25 mg Route: IVP; Site: left forearm; ph 16:30 Follow up: Response: No adverse reaction; Pain is decreased ph 18:05 Drug: TORadol - (ketorolac) 15 mg Route: IVP; Site: left forearm; ph 18:15 Follow up: Response: No adverse reaction ph Outcome: 17:35 Discharge ordered by . rn 18:20 Discharged to home ambulatory. ph 18:20 Condition: good 18:20 Discharge instructions given to patient, Instructed on discharge instructions, follow up and referral plans. Demonstrated understanding of instructions, follow-up care. 18:21 Patient left the ED. ph Signatures: Dispatcher [employer] Rajani Virk Roman, MD MD rn Hall, Patricia, RN RN ph Herrera, Deanna [facility] Sushant Laguna RN RN ae4
--- NOTE | 2021-02-12 17:36 | EDPHYS ---
Physician Documentation [facility] Name: Lara Palacio Age: 25 yrs Sex: Female : 1995 Arrival Date: 02/12/2021 Time: 15:19 Bed 17 Private MD: ED Physician Rommel Elaine HPI: 02/12 16:03 This 25 yrs old Female presents to ER via Ambulatory with complaints of High rn Blood Pressure, Blurred Vision, Headache, Chest Tightness. 16:03 The patient has elevated blood pressure and discovered this at home. Onset: The rn symptoms/episode began/occurred 1 week(s) ago. Modifying factors: The symptoms are aggravated by nothing, The symptoms are alleviated by prescription meds. Severity of symptoms: At its worst the blood pressure was moderate, in the emergency department the blood pressure is improved. The patient has experienced similar episodes in the past. The patient has not recently seen a physician. Reports usually has low blood pressure, take midodrine, but also has prescription for when BP runs high, expected to take BP daily and decide what medication to take. Reports high blood pressure, especially diastolic for last week. Assoc with headache, spots in vision of both eyes, chest tightness, fatigue. No fever. No focal weakness or numbness. No head injury. . 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 Last tetanus immunization: up to date Flu vaccine is not up to date. - Social history:: Smoking status: Patient denies any tobacco usage or history of. - Family history:: not pertinent. - Hospitalizations: : No recent hospitalization is reported. ROS: 16:03 Constitutional: Negative for fever, chills, and weight loss, Eyes: Negative for injury, rn pain, redness, and discharge, ENT: Negative for injury, pain, and discharge, Neck: Negative for injury, pain, and swelling, Cardiovascular: Negative for palpitations, and edema, Respiratory: Negative for shortness of breath, cough, wheezing, and pleuritic chest pain, Abdomen/GI: Negative for abdominal pain, nausea, vomiting, diarrhea, and constipation, Back: Negative for injury and pain, : Negative for injury, bleeding, discharge, and swelling, MS/Extremity: Negative for injury and deformity, Skin: Negative for injury, rash, and discoloration, Neuro: Negative for numbness, tingling, and seizure. Exam: 16:03 Constitutional: This is a well developed, well nourished patient who is awake, alert, rn and in no acute distress. Head/Face: Normocephalic, atraumatic. Eyes: Pupils equal round and reactive to light, extra-ocular motions intact. Periorbital areas with no swelling, redness, or edema. Neck: Trachea midline, no masses palpated, and no cervical lymphadenopathy. Supple, full range of motion without nuchal rigidity, or vertebral point tenderness. No Meningismus. Cardiovascular: Regular rate and rhythm. No pulse deficits. Respiratory: No increased work of breathing, no retractions or nasal flaring. Abdomen/GI: soft, non-tender Skin: Warm, dry MS/ Extremity: Pulses equal, no cyanosis. Neuro: Awake and alert, GCS 15, oriented to person, place, time, and situation. Cranial nerves II-XII grossly intact. Motor strength 5/5 in all extremities. Sensory grossly intact. Cerebellar exam normal. 16:25 ECG was reviewed by the Attending Physician. rn Vital Signs: 15:28 BP 155 / 102; Pulse 83; Resp 19; Temp 98.4(O); Pulse Ox 100% on R/A; Weight 104.33 kg ae4 (R); Pain 8/10; 15:33 BP 146 / 100; Pulse 80; Resp 19; Pulse Ox 98% on R/A; ae4 16:22 BP 144 / 101; Pulse 55; Resp 18; Pulse Ox 98% on R/A; ph 17:15 BP 113 / 78; Pulse 63; Resp 18; Pulse Ox 98% on R/A; ph 18:19 BP 105 / 70; Pulse 64; Resp 18; Temp 98.2; Pulse Ox 99% on R/A; ph MDM: 15:23 Patient medically screened. rn 17:32 Differential diagnosis: hypertensive crisis, Malignant HTN, intracerebral hemorrhage. rn Data reviewed: vital signs, nurses notes, lab test result(s), EKG, radiologic studies, CT scan, plain films, and as a result, I will discharge patient. Counseling: I had a detailed discussion with the patient and/or guardian regarding: the historical points, exam findings, and any diagnostic results supporting the discharge/admit diagnosis, lab results, radiology results, the need for outpatient follow up, to return to the emergency department if symptoms worsen or persist or if there are any questions or concerns that arise at home. Counseling: I had a detailed discussion with the patient and/or guardian regarding: the presence of at least one elevated blood pressure reading (>120/80) during this emergency department visit. Response to treatment: the patient's symptoms have markedly improved after treatment, and as a result, I will discharge patient. Special discussion: I discussed with the patient/guardian in detail that at this point there is no indication for admission to the hospital. It is understood, however, that if the symptoms persist or worsen the patient needs to return immediately for re-evaluation. Based on the history and exam findings, there is no indication for further emergent testing or inpatient evaluation. 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 I discussed with the patient/guardian the need to see the primary care provider for further evaluation of the symptoms. ED course: No acute findings on ct head/ ct angio head and neck. Necg cxr, no abnormality on ecg. Labs unremarkable. BP now 113/78 with treatment of pain. 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 . 02/12 15:41 Order name: CBC with Diff; Complete Time: 17: rn 02/12 15:41 Order name: Basic Metabolic Panel; Complete Time: 17: rn 02/12 15:41 Order name: CT Head Brain wo Cont; Complete Time: 17: rn 02/12 15:41 Order name: CT Head Angio; Complete Time: 17: rn 02/12 15:50 Order name: Glucose, Ancillary Testing; Complete Time: 16:01 EDNV 06/13 15:41 Order name: Neck Angio CT; Complete Time: 17:06 rn 02/12 15:41 Order name: IV Start; Complete Time: 16:10 rn 02/12 15:41 Order name: EKG; Complete Time: 15:41 rn 02/12 15:41 Order name: XRAY Chest (1 view); Complete Time: 17:06 rn 02/12 15:41 Order name: EKG - Nurse/Tech; Complete Time: 16:17 rn EC:25 Rate is 61 beats/min. Rhythm is regular. QRS [place] is Normal. VT interval is normal. QRS rn interval is normal. QT interval is normal. No Q waves. T waves are Normal. No ST changes noted. Clinical impression: NSR w/ Non-specific ST/T Changes. Interpreted by me. Reviewed by me. Administered Medications: 16:17 Drug: NS 0.9% 1000 ml Route: IV; Rate: 1000 ml; Site: left forearm; ph 18:00 Follow up: Response: No adverse reaction; IV Status: Completed infusion; IV Intake: ph 1000ml 16:17 Drug: Demerol (meperidine) 25 mg Route: IVP; Site: left forearm; ph 16:30 Follow up: Response: No adverse reaction; Pain is decreased ph 18:05 Drug: TORadol - (ketorolac) 15 mg Route: IVP; Site: left forearm; ph 18:15 Follow up: Response: No adverse reaction ph Disposition: 02/12/21 17:35 Discharged to Home. Impression: Hypertension, Headache. - Condition is Stable. - Discharge Instructions: General Headache Without Cause, Hypertension. - Medication Reconciliation Form, Thank You Letter, Antibiotic Education, Prescription Opioid Use, Work release form form. - Follow up: Private Physician; When: As needed; Reason: Recheck today's complaints, Re-evaluation by your physician. - Problem is new. - Symptoms have improved. Signatures: Dispatcher [employer] EDMS Rommel Elaine MD MD rn Hall, Patricia, RN RN ph Elliott, Andrea, RN RN ae4 Corrections: (The following items were deleted from the chart) 18:21 17:35 02/12/2021 17:35 Discharged to Home. Impression: Hypertension; Headache. ph Condition is Stable. Forms are Medication Reconciliation Form, Thank You Letter, Antibiotic Education, Prescription Opioid Use. Follow up: Private Physician; When: As needed; Reason: Recheck today's complaints, Re-evaluation by your physician. Problem is new. Symptoms have improved. rn
[2021-02-12] MEDS ORDERED: KETOROLAC 30 MG/ML INJ ONE (18:11)
[2021-02-12 18:49] VITALS: BP 105/70; TEMP 98.2; O2SAT 99
== END 2021-02-12 18:21 | disposition home or self-care (01) ==
LOC: ER 15:19
DX: I10 Essential (primary) hypertension (principal); Z95.0 Presence of cardiac pacemaker
CPT/HCPCS: 96361; 93005; 85025; 80048; 36415; 82947; 70450; 70496; 70498; 71045; 96375; 96374; 99284; Q9967; J2175; J7030

== ENCOUNTER 2021-02-28 11:03 | Emergency (ER) | payer BC ==
--- OUTSIDE RECORDS SUMMARY | 2021-02-28 11:07 | XMS REPORT | Continuity of Care Document ---
:1995 Author Organization [facility] t Address [address] [place] [address] Care Team Providers Name Role Phone Asked, Pcp Primary Care Physician Unavailable Leo COYNE S Attending Clinician RAMI Attending Clinician Unavailable RAMI Admitting Clinician Unavailable Problems Condition Condition Condition Status Onset Resolution Last Treating Co mments Source Name Details Category Date Date Treatment Clinician Date Sick sinus Sick sinus Disease Active H [place] syndrome syndrome 05-11 Method i 00:00: st 00 Allergies, Adverse Reactions, Alerts This patient has no known allergies or adverse reactions. Family History Family Member Diagnosis Comments Start Date Stop Date Source Natural father Heart disease Bora Knight Maternal aunt Heart disease Bora Knight Maternal grandmother Heart disease H malka Knight Natural mother Heart disease [facility]ni [facility] Paternal grandmother Heart disease H malka Knight Social History Social Habit Start Date Stop Date Quantity Comments Source Tobacco use and 2019-05-15 2019-05-15 Never used [facility] ethodist exposure 00:00:00 00:00:00 Alcohol intake 2019-05-15 2019-05-15 Current drinker [place] 00:00:00 00:00:00 of alcohol (finding) Tobacco Comment 2019-05-11 2019-05-11 social only [place] [facility] 00:00:00 00:00:00 Alcohol Comment 2019-05-11 2019-05-11 social [facility] ethodist 00:00:00 00:00:00 Sex [birth year] [facility] ethodist 00:00:00 00:00:00 Smoking Status Start Date Stop Date Source Current some day smoker 2019-05-15 00:00:00 [place] Medications Ordered Filled Start Stop Current Ordering Indication Dosage Frequency Signature Comments Components Source Medication Medication Date Date Medication? Clinician (SIG) Name Name german Yes acute pain 1{film} QD Place 1 [place] ne-naloxone 9-11 Film under Me [facility] (SUBOXONE) 10:11: the tongue s t 2-0.5 mg 16 daily film .Acute Pain. Procedures This patient has no known procedures. Plan of Care Planned Activity Planned Date Details Comments Source Future Scheduled 2021-04-02 INFLUENZA VACCINE [place] [facility] 00:00:00 [code = INFLUENZA VACCINE] Future Scheduled 2014 Screening for [place] [facility] 00:00:00 malignant neoplasm of cervix (procedure) [code = 858033434] Future Scheduled 2011 Hepatitis C [place] [facility] Test 00:00:00 screening (procedure) [code = 097960067] Future Scheduled 2005 COVID-19 VACCINE (1) [facility] 00:00:00 [code = COVID-19 VACCINE (1)] Encounters Start End Encounter Admission Attending Care Care Encounter Source Date/Time Date/Time Type Type Clinicians Facility Department ID 2019-11-11 2019-11-11 Emergency [facility] [id number] 17:21:24 17:22:00 [place] [id number] [place] [id number] [place] [id number] 2019-05-11 2019-05-13 Outpatient GATITO CORDOVA [facility] [id number] [place] 00:00:00 00:00:[address] Results This patient has no known results.
[2021-02-28 12:07] LABS: Urine Blood Negative (Negative); Urine Glucose Negative (Negative); Urine Protein Trace (Negative); Urine pH 8.5 (5.0-7.0)
[2021-02-28] MEDS ORDERED: DIAZEPAM 2 MG TABLET ONE (12:12)
[2021-02-28] MEDS ORDERED: NA CHLORIDE 0.9% 500 ML ONE (12:12)
[2021-02-28] MEDS ORDERED: MEPERIDINE HCL 25 MG/ML SYR ONE (12:55)
[2021-02-28 13:01] LABS: BUN Blood Urea Nitrogen 11 mg/dL (7-18); Bicarbonate 29 mmol/L (21-32); Glucose Level 108 mg/dL (74-106); Magnesium 1.9 mg/dL (1.8-2.4); Sodium Level 139 mmol/L (136-145); Troponin (Emerg Dept Use Only) < 0.02 ng/mL (0.0-0.045)
--- NOTE | 2021-02-28 13:02 | RAD REPORT ---
EXAM DESCRIPTION: CT - Head Brain Wo Cont - 02/28/2021 12:42 pm CLINICAL HISTORY: Headache;Dizziness COMPARISON: Head Brain Wo Cont dated 02/12/2021 TECHNIQUE: Axial 5 mm thick images of the head were obtained without IV contrast. All CT scans are performed using dose optimization technique as appropriate and may include automated exposure control or mA/KV adjustment according to patient size. FINDINGS: No intracranial hemorrhage, mass, edema or shift of mid-line structures. No acute infarcti on changes seen. No abnormal extra-axial fluid collections. Ventricles are normal. Mastoid air cells and visualized portions of the paranasal sinuses are clear. No acute bony findings. No change from comparison. IMPRESSION: Negative non-contrast CT head examination.
--- NOTE | 2021-02-28 13:35 | ER ---
Nurse's Notes [facility] Name: Lara Palacio Age: 25 yrs Sex: Female : 1995 Arrival Date: 02/28/2021 Time: 11:06 Bed 18 Private MD: Diagnosis: Migraine without aura, not intractable, without status migrainosus;Tachycardia, unspecified Presentation: 02/28 11:26 Chief complaint: Patient states: Migraine, tremors and shaky vision that began 2 hours ss ago. 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 Coronavirus screen: Client denies travel out of the [place] in the last 14 days. Ebola Screen: Patient denies exposure to infectious person. Patient denies travel to an Ebola-affected area in the 21 days before illness onset. Initial Sepsis Screen: Does the patient meet any 2 criteria? No. Patient's initial sepsis screen is negative. Does the patient have a suspected source of infection? No. Patient's initial sepsis screen is negative. Risk Assessment: Do you want to hurt yourself or someone else? Patient reports no desire to harm self or others. Onset of symptoms was February 28, 2021. 11:26 Method Of Arrival: Ambulatory ss 11:26 Acuity: DEEPA 2 ss Historical: - Allergies: 11:28 No Known Allergies; ss - Home Meds: 11:28 midodrine Oral [Active]; Metoprolol Tartrate Oral [Active]; ss - PMHx: 11:28 Anxiety; BRADYCARDIA; hydronephrosis right kidney; Myocardial infarction; Pacemaker; ss sick sinus syndrome; SVT; Vasovagal syndrome; Autonomic dysfunction; - PSHx: 11:28 cardiac ablation x3; Tonsillectomy; Adenoid excision; ss - Immunization history:: Adult Immunizations up to date. - Social history:: Smoking status: Patient reports the use of cigarette tobacco products, denies chronic smoking, but will smoke occasionally. - Family history:: not pertinent. - Hospitalizations: : No recent hospitalization is reported. Screenin:18 Abuse screen: Denies threats or abuse. Nutritional screening: No deficits noted. vg1 Tuberculosis screening: No symptoms or risk factors identified. Fall Risk No fall in past 12 months (0 pts). No secondary diagnosis (0 pts). IV access (20 points). Ambulatory Aid- None/Bed Rest/Nurse Assist (0 pts). Gait- Normal/Bed Rest/Wheelchair (0 pts) Mental Status- Oriented to own ability (0 pts). Total Castro Fall Scale indicates No Risk (0-24 pts). Assessment: 12:00 General: Appears in no apparent distress. comfortable, Behavior is calm, cooperative. vg1 Pain: Complains of pain in head Pain does not radiate. Pain currently is 8 out of 10 on a pain scale. Pain began 2 hours ago. Noted to be grimacing, moaning. Neuro: Level of Consciousness is awake, alert, obeys commands, Oriented to person, place, time, situation, Reports blurred vision headache photophobia. Cardiovascular: Patient's skin is warm and dry. Respiratory: Airway is patent Respiratory effort is even, unlabored. GI: Patient currently denies nausea, vomiting. : No signs and/or symptoms were reported regarding the genitourinary system. EENT: No signs and/or symptoms were reported regarding the EENT system. Derm: Skin is intact, is healthy with good turgor. Musculoskeletal: Circulation, motion, and sensation intact. 13:21 Reassessment: Patient appears in no apparent distress at this time. Patient and/or vg1 family updated on plan of care and expected duration. Pain level reassessed. Patient is alert, oriented x 3, equal unlabored respirations, skin warm/dry/pink. Rated pain 3/10 Patient states feeling better. 14:17 Reassessment: Received VO from Dr Elaine to administer [place] 10 mg/325 mg PO x1. vg1 14:28 Reassessment: Patient appears in no apparent distress at this time. Patient and/or vg1 family updated on plan of care and expected duration. Pain level reassessed. Patient is alert, oriented x 3, equal unlabored respirations, skin warm/dry/pink. Vital Signs: 11:28 Pulse 121; Resp 16; Temp 99.4(O); Pulse Ox 99% ; Weight 90.72 kg; Height 5 ft. 3 in. ss (160.02 cm); Pain 6/10; 11:32 BP 125 / 88; ss 12:19 BP 120 / 69; Pulse 105; Resp 18; Pulse Ox 98% on R/A; vg1 13:00 BP 105 / 65; Pulse 74; Resp 16; Pulse Ox 97% on R/A; vg1 14:28 BP 107 / 64; Pulse 70; Resp 16; Pulse Ox 100% ; vg1 11:28 Body Mass Index 35.43 (90.72 kg, 160.02 cm) ss Rebecca Coma Score: 13:32 Eye Response: spontaneous(4). Verbal Response: oriented(5). Motor Response: obeys rn commands(6). Total: 15. ED Course: 11:06 Patient arrived in ED. wm 11:28 Triage completed. ss 11:28 Arm band placed on right wrist. ss 11:35 Rommel Elaine MD is Attending Physician. rn 11:40 Rosanne Gardiner RN is Primary Nurse. vg1 12:18 Patient has correct armband on for positive identification. Placed in gown. Bed in low vg1 position. Call light in reach. Side rails up X 1. classroom monitor on. Pulse ox on. NIBP on. 12:18 Patient maintains SpO2 saturation greater than 95% on room air. vg1 12:27 Initial lab(s) drawn, by me, sent to lab. Inserted saline lock: 20 gauge in right dh3 forearm, using aseptic technique. Blood collected. 12:42 CT Head Brain wo Cont In Process Unspecified. EDMS 14:29 No provider procedures requiring assistance completed. IV discontinued, intact, vg1 bleeding controlled, No redness/swelling at site. Pressure dressing applied. Administered Medications: 12:00 Drug: Valium (diazepam) 2 mg Route: PO; vg1 13:21 Follow up: Response: Marked relief of symptoms vg1 12:31 Drug: NS 0.9% 500 ml Route: IV; Rate: bolus; Site: right forearm; vg1 13:21 Follow up: IV Status: Completed infusion; IV Intake: 500ml vg1 12:37 Drug: Demerol (meperidine) 25 mg {Note: rass 0.} Route: IVP; Site: right forearm; vg1 13:21 Follow up: Response: No adverse reaction; Pain is decreased vg1 14:28 Drug: [place] (HYDROcodone-acetaminophen) 10 mg-325 mg 1 tabs Route: PO; vg1 14:28 Follow up: Response: Medication administered at discharge. vg1 Intake: 13:21 IV: 500ml; Total: 500ml. vg1 Outcome: 13:35 Discharge ordered by . rn 14:29 Discharged to home ambulatory, with family. vg1 14:29 Condition: stable 14:29 Discharge instructions given to patient, Instructed on discharge instructions, follow up and referral plans. Demonstrated understanding of instructions, follow-up care. 14:30 Patient left the ED. vg1 Signatures: Dispatcher [employer] EDMS Rommel Elaine MD MD rn Smirch, Shelby, RN RN Lilli Holman [facility] Rosanne Gardiner RN RN 1 July [place] [employer]: (The following items were deleted from the chart) 11:28 Home Meds: metoprol succinate 25 mg 1 tab; ss ss 11 11:28 PMHx: heart ablations x 3; ss ss 11:32 11:26 Acuity: DEEPA 3 ss ss
--- NOTE | 2021-02-28 13:36 | EDPHYS ---
Physician Documentation [facility] Name: Lara Palacio Age: 25 yrs Sex: Female : 1995 Arrival Date: 02/28/2021 Time: 11:06 Bed 18 Private MD: ED Physician Rommel Elaine HPI: 02/28 11:46 This 25 yrs old Female presents to ER via Ambulatory with complaints of chest rn tightness, headache, tremor. 11:47 The patient complains of pain to the top of head and forehead. The patient describes rn the headache as aching. Onset: The symptoms/episode began/occurred last night. Associated signs and symptoms: Pertinent positives: dizziness, blurred vision, Pertinent negatives: fever, neck stiffness, rash, vision loss. Severity of symptoms: At its worst the pain was moderate, in the emergency department the pain is unchanged. The symptoms are alleviated by nothing. the symptoms are aggravated by nothing. The patient has not experienced similar symptoms in the past. The patient has been recently seen by a physician: The patient has been recently seen at the [facility] Emergency Department. Reports undergoing evaluation for autonomic dysfunction, last night in line at [facility] around 0300, states had trouble getting change, had a headache, assoc with blurred vision that is coming and going, chest pain, tremors, and anxiety. Doesn't take her anxiety medication. No focal weakness. Reports "trouble thinking". Now feeling much better, was going to go home and sleep it off but family told her to come. . Historical: - Allergies: 11:28 No Known Allergies; ss - Home Meds: 11:28 midodrine Oral [Active]; Metoprolol Tartrate Oral [Active]; ss - PMHx: 11:28 Anxiety; BRADYCARDIA; hydronephrosis right kidney; Myocardial infarction; Pacemaker; ss sick sinus syndrome; SVT; Vasovagal syndrome; Autonomic dysfunction; - PSHx: 11:28 cardiac ablation x3; Tonsillectomy; Adenoid excision; ss - Immunization history:: Adult Immunizations up to date. - Social history:: Smoking status: Patient reports the use of cigarette tobacco products, denies chronic smoking, but will smoke occasionally. - Family history:: not pertinent. - Hospitalizations: : No recent hospitalization is reported. ROS: 11:47 Constitutional: Negative for fever, chills, and weight loss, Eyes: Negative for injury, rn pain, redness, and discharge, Neck: Negative for injury, pain, and swelling, Cardiovascular: Negative for palpitations, and edema, Respiratory: Negative for shortness of breath, cough, wheezing, and pleuritic chest pain, Abdomen/GI: Negative for abdominal pain, nausea, vomiting, diarrhea, and constipation, Back: Negative for injury and pain, MS/Extremity: Negative for injury and deformity, Skin: Negative for injury, rash, and discoloration, Neuro: Negative for numbness, tingling, and seizure. Exam: 11:47 Constitutional: This is a well developed, well nourished patient who is awake, alert, rn and in no acute distress. Sitting upright and seems anxious. Head/Face: Normocephalic, atraumatic. Eyes: Pupils equal round and reactive to light, extra-ocular motions intact. Lids and lashes normal. Conjunctiva and sclera are non-icteric and not injected. Cornea within normal limits. Periorbital areas with no swelling, redness, or edema. Neck: Supple, full range of motion without nuchal rigidity, or vertebral point tenderness. No Meningismus. Cardiovascular: Tachycardic, regular. No pulse deficits. Respiratory: No increased work of breathing, no retractions or nasal flaring. Skin: Warm, dry MS/ Extremity: Pulses equal, no cyanosis Neuro: Awake and alert, GCS 15, oriented to person, place, time, and situation. Cranial nerves II-XII grossly intact. Motor strength 5/5 in all extremities. Sensory grossly intact. Cerebellar exam normal. Vital Signs: 11:28 Pulse 121; Resp 16; Temp 99.4(O); Pulse Ox 99% ; Weight 90.72 kg; Height 5 ft. 3 in. ss (160.02 cm); Pain 6/10; 11:32 BP 125 / 88; ss 12:19 BP 120 / 69; Pulse 105; Resp 18; Pulse Ox 98% on R/A; vg1 13:00 BP 105 / 65; Pulse 74; Resp 16; Pulse Ox 97% on R/A; vg1 14:28 BP 107 / 64; Pulse 70; Resp 16; Pulse Ox 100% ; vg1 11:28 Body Mass Index 35.43 (90.72 kg, 160.02 cm) ss Rebecca Coma Score: 13:32 Eye Response: spontaneous(4). Verbal Response: oriented(5). Motor Response: obeys rn commands(6). Total: 15. MDM: 11:35 Patient medically screened. rn 13:32 Differential diagnosis: hypertensive headache, intracerebral hemorrhage, migraine, rn neoplasm, tension headache, trigeminal neuralgia, vasomotor headache, ophthalmic migraine. Data reviewed: vital signs, nurses notes, lab test result(s), EKG, radiologic studies, CT scan, and as a result, I will discharge patient. Counseling: I had a detailed discussion with the patient and/or guardian regarding: the historical points, exam findings, and any diagnostic results supporting the discharge/admit diagnosis, lab results, radiology results, the need for outpatient follow up, to return to the emergency department if symptoms worsen or persist or if there are any questions or concerns that arise at home. Response to treatment: the patient's symptoms have markedly improved after treatment, and as a result, I will discharge patient. Special discussion: I discussed with the patient/guardian in detail that at this point there is no indication for admission to the hospital. It is understood, however, that if the symptoms persist or worsen the patient needs to return immediately for re-evaluation. Based on the history and exam findings, there is no indication for further emergent testing or inpatient evaluation. I discussed with the patient/guardian the need to see the neurologist for further evaluation of the symptoms. I discussed with the patient/guardian the need to see the primary care provider for further evaluation of the symptoms. ED course: Pt improved, ct head neg, no acute findings in blood, UA neg for infection, vitals stable. Will dc home with pcp and neuro f/u, most likely autonomic dysfunction on top of ophthalmic migraines. . 02/28 11:46 Order name: Basic Metabolic Panel; Complete Time: 13:16 rn 02/28 11:46 Order name: CBC with Diff rn 02/28 11:46 Order name: Magnesium; Complete Time: 13:16 rn 02/28 11:46 Order name: Troponin (emerg Dept Use Only); Complete Time: 13:16 rn 02/28 12:06 Order name: Urine Dipstick-Ancillary; Complete Time: 12:28 EDMS 02/28 12:26 Order name: Urine --Ancillary (enter results) bd 02/28 11:46 Order name: CT Head Brain wo Cont; Complete Time: 13:16 rn 02/28 11:46 Order name: EKG; Complete Time: 11:47 rn 02/28 11:46 Order name: Cardiac monitoring; Complete Time: 12:15 rn 02/28 11:46 Order name: EKG - Nurse/Tech; Complete Time: 12:15 rn 02/28 11:46 Order name: IV Saline Lock; Complete Time: 12:31 rn 02/28 11:46 Order name: Labs collected and sent; Complete Time: 12:31 rn 02/28 11:46 Order name: O2 Per Protocol; Complete Time: 11:50 rn 02/28 11:46 Order name: O2 Sat Monitoring; Complete Time: 11:50 rn 02/28 11:46 Order name: Urine Dipstick-Ancillary (obtain specimen); Complete Time: 12:16 rn Administered Medications: 12:00 Drug: Valium (diazepam) 2 mg Route: PO; vg1 13:21 Follow up: Response: Marked relief of symptoms vg1 12:31 Drug: NS 0.9% 500 ml Route: IV; Rate: bolus; Site: right forearm; vg1 13:21 Follow up: IV Status: Completed infusion; IV Intake: 500ml vg1 12:37 Drug: Demerol (meperidine) 25 mg {Note: rass 0.} Route: IVP; Site: right forearm; vg1 13:21 Follow up: Response: No adverse reaction; Pain is decreased vg1 14:28 Drug: [place] (HYDROcodone-acetaminophen) 10 mg-325 mg 1 tabs Route: PO; vg1 14:28 Follow up: Response: Medication administered at discharge. vg1 Disposition Summary: 02/28/21 13:35 Discharge Ordered Location: Home rn Problem: an ongoing problem rn Symptoms: have improved rn Condition: Stable rn Diagnosis - Migraine without aura, not intractable, without status migrainosus rn - Tachycardia, unspecified rn Followup: rn - With: Private Physician - When: As needed - Reason: Recheck today's complaints, Re-evaluation by your physician Discharge Instructions: - Discharge Summary Sheet rn - Migraine Headache rn Forms: - Medication Reconciliation Form rn - Thank You Letter rn - Antibiotic journalism professor - Prescription Opioid Use rn Signatures: Dispatcher [employer] EDRommel Kennedy MD MD rn Smirch, Shelby, RN RN ss Abdifatah, LORNE Lay RN vg1 Corrections: (The following items were deleted from the chart) 11: Home Meds: metoprol succinate 25 mg 1 tab; [facility] PMHx: heart ablations x 3; [facility]
[2021-02-28] MEDS ORDERED: HYDROCODONE/APAP 10/325 TAB ONE (14:36)
[2021-02-28 14:41] LABS: Absolute Lymphocytes (CBC) 2.5 K/uL (0.7-4.9); Basophils % 0.3 % (0-1.3); Lymphocytes % 27.8 % (15.3-44.8); RBC Red Blood Cell Count 4.52 M/uL (3.86-4.86)
[2021-02-28 14:42] VITALS: TEMP 99.4
[2021-02-28 14:48] VITALS: BP 107/64; O2SAT 100
--- NOTE | 2021-03-01 16:36 | EKG ---
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
== END 2021-02-28 14:30 | disposition home or self-care (01) ==
LOC: ER 11:03
DX: G43.009 Migraine without aura, not intractable, without status migrainosus (principal); R00.0 Tachycardia, unspecified; F17.210 Nicotine dependence, cigarettes, uncomplicated; Z95.0 Presence of cardiac pacemaker
CPT/HCPCS: 93005; 85025; 80048; 36415; 83735; 81025; 81003; 84484; 70450; J2175; J7040; 96361; 96374; 99285

== ENCOUNTER 2021-08-17 09:05 | Emergency (ER) | payer BC ==
--- OUTSIDE RECORDS SUMMARY | 2021-08-17 09:07 | XMS REPORT | Continuity of Care Document ---
:1995 Author Organization [facility] t Address [address] [place] [address] Care Team Providers Name Role Phone Asked, Pcp Primary Care Physician Unavailable Jayne Little MD Attending Clinician Jayne LITTLE Attending Clinician Unavailable Problems Condition Condition Condition Status Onset Resolution Last Treating Co mments Source Name Details Category Date Date Treatment Clinician Date Sick sinus Sick sinus Disease Active M ethodi syndrome syndrome 05-11 00:00: [facility]osp[facility] 00 l Allergies, Adverse Reactions, Alerts Allergy Allergy Status Severity Reaction(s) Onset Inactive Treating Comm ents Source Name Type Date Date Clinician NO KNOWN Drug Active Univers ALLERGIE Class [facility] Family History Family Member Diagnosis Comments Start Date Stop Date Source Natural father Heart disease [facility] Maternal aunt Heart disease [facility] Maternal grandmother Heart disease [facility] Natural mother Heart disease [facility] Paternal grandmother Heart disease [facility] Social History Social Habit Start Date Stop Date Quantity Comments Source Tobacco use and 2019-05-15 2019-05-15 Never used Spirit[facility] exposure 00:00:00 00:00:00 Hospital Alcohol intake 2019-05-15 2019-05-15 Current drinker [facility] 00:00:00 00:00:00 of alcohol Hospital (finding) Alcohol Comment 2019-05-11 2019-05-11 social Spiritism 00:00:00 00:00:00 Hospital Tobacco Comment 2019-05-11 2019-05-11 social only [facility] t 00:00:00 00:00:00 Hospital Sex Ass[birth year] At [birth year] Spiritism 00:00:00 00:00:00 Hospital Smoking Status Start Date Stop Date Source Current some day smoker 2019-05-15 00:00:00 [facility] Medications Ordered Filled Start Stop Current Ordering Indication Dosage Frequency Signature Comments Components Source Medication Medication Date Date Medication? Clinician (SIG) Name Name german 2018-0 Yes 16440 1{film} QD Place 1 Methodi ne-naloxone 9-[address] (SUBOXONE) 15:11: the tongue H ospita 2-0.5 mg 16 daily l film .Acute Pain. Procedures This patient has no known procedures. Plan of Care Planned Activity Planned Date Details Comments Source Future Scheduled Test Hepatitis C screening [facility] (procedure) [code = 165247242] Future Scheduled Test Screening for [facility] malignant neoplasm of cervix (procedure) [code = 086049410] Future Scheduled Test INFLUENZA VACCINE [facility] [code = INFLUENZA VACCINE] Future Scheduled Test COVID-19 VACCINE (1) [facility] [code = COVID-19 VACCINE (1)] Encounters Start End Encounter Admission Attending Care Care Encounter Source Date/Time Date/Time Type Type Clinicians Facility Department ID 2019-11-11 2019-11-11 Emergency [facility] [id number] 17:21:24 17:22:00 [place] [id number] [place] [id number] [place] [id number] 2019-11-11 2019-11-11 Emergency X [facility] ERT [id number] 16:50:00 16:50:00 NIXON lopez [facility] 2017-12-22 2017-12-[address] [facility] [id number] [address] [place] [address] 00:00:00 00:00:00 [facility] Results This patient has no known results.
[2021-08-17 10:06] LABS: Urine Blood 3+ (Negative); Urine Glucose Negative (Negative); Urine Protein 1+ (Negative); Urine Specific Gravity >=1.030 (1.005-1.030)
[2021-08-17 10:23] LABS: Urine Amorphous Sediment 3+ /HPF (NONE SEEN); Urine Bacteria <20 /HPF (<20); Urine RBC NONE SEEN /HPF (NONE SEEN)
[2021-08-17 10:25] LABS: Urine Specific Gravity/Preg >1.030 (1.005-1.030)
[2021-08-17 10:31] LABS: Basophils % 0.4 % (0-1.3); Hematocrit 43.8 % (36.0-45.0); Lymphocytes % 20.3 % (15.3-44.8); MPV 7.8 fL (7.6-11.3); RBC Red Blood Cell Count 5.12 M/uL (3.86-4.86)
[2021-08-17] MEDS ORDERED: ONDANSETRON 4 MG/2 ML VIAL ONE (10:33)
[2021-08-17] MEDS ORDERED: MORPHINE 4 MG/ML SYR ONE (10:33)
[2021-08-17 10:47] LABS: ALT/SGPT 26 U/L (12-78); AST/SGOT 8 U/L (15-37); Albumin 4.2 g/dL (3.4-5.0); Alkaline Phosphatase 84 U/L (45-117); BUN Blood Urea Nitrogen 11 mg/dL (7-18); Bicarbonate 24 mmol/L (21-32); Bilirubin Direct < 0.1 mg/dL (0-0.2); Bilirubin Total 0.3 mg/dL (0.2-1.0); Glucose Level 109 mg/dL (74-106); Lipase 154 U/L (73-393); Potassium 3.7 mmol/L (3.5-5.1); Protein, Total 8.3 g/dL (6.4-8.2); Sodium Level 140 mmol/L (136-145)
[2021-08-17] MEDS ORDERED: NA CHLORIDE 0.9% 1,000 ML ONE (11:00)
--- NOTE | 2021-08-17 11:29 | RAD REPORT ---
EXAM DESCRIPTION: CT - Abdomen Pelvis W Contrast - 08/17/2021 11:16 am CLINICAL HISTORY: Abdominal pain COMPARISON: 2019 TECHNIQUE: Computed axial tomography of the abdomen pelvis was obtained. 100 cc Isovue-300 was admin istered intravenously. Oral contrast was not requested which limits evaluation of bowel. All CT scans are performed using dose optimization technique as appropriate and may include automated exposure control or mA/KV adjustment according to patient size. FINDINGS: The liver, spleen, pancreas, adrenal and kidneys appear unremarkable. There is no evidence of diverticulitis. Appendix is not clearly seen. No stranding adjacent to the ce cum. Trace amount of ascites may be physiologic. Small umbilical hernia IMPRESSION: No acute abnormality is displayed.
--- NOTE | 2021-08-17 11:30 | RAD REPORT ---
EXAM DESCRIPTION: US - Abdomen Exam Limited - 08/17/2021 9:40 am CLINICAL HISTORY: Abdominal pain. COMPARISON: None. FINDINGS: The gallbladder wall is not thickened. A gallstone is not seen. The biliary tree is normal caliber. IMPRESSION: Unremarkable gallbladder ultrasound.
--- NOTE | 2021-08-17 12:06 | EDPHYS ---
Physician Documentation [facility] Name: Lara Palacio Age: 26 yrs Sex: Female : 1995 Arrival Date: 08/17/2021 Time: 09:06 Bed 11 Private MD: ED Physician Theodore Carter HPI: 08/17 16:33 This 26 yrs old Female presents to ER via Ambulatory with complaints of Flank Pain. kb 16:33 The patient presents with abdominal pain in the right upper quadrant. Onset: The kb symptoms/episode began/occurred 3 day(s) ago. The symptoms radiate to right back. Associated signs and symptoms: Pertinent positives: diarrhea, Pertinent negatives: nausea and vomiting, fever. The symptoms are described as constant. Modifying factors: The symptoms are alleviated by nothing, the symptoms are aggravated by nothing. Severity of pain: At its worst the pain was moderate in the emergency department the pain is unchanged. The patient has not experienced similar symptoms in the past. The patient has not recently seen a physician. 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 Flu vaccine status is unknown. - Social history:: Smoking status: Patient reports the use of cigarette tobacco products, denies chronic smoking, but will smoke occasionally. ROS: 16:32 Constitutional: Negative for fever, chills, and weight loss. kb 16:32 Abdomen/GI: Positive for abdominal pain, diarrhea, Negative for nausea and vomiting. 16:32 Back: Positive for flank pain, on the right. 16:32 All other systems are negative. Exam: 16:32 Constitutional: This is a well developed, well nourished patient who is awake, alert, kb and in no acute distress. Head/Face: Normocephalic, atraumatic. ENT: Moist Mucous membranes Cardiovascular: Regular rate and rhythm with a normal S1 and S2. No gallops, murmurs, or rubs. No pulse deficits. Respiratory: Respirations even and unlabored. No increased work of breathing. Talking in full sentences Skin: Warm, dry with normal turgor. Normal color. MS/ Extremity: Pulses equal, no cyanosis. Neurovascular intact. Full, normal range of motion. Neuro: Awake and alert, GCS 15, oriented to person, place, time, and situation. Moves all extremities. Normal gait. Psych: Awake, alert, with orientation to person, place and time. Behavior, mood, and affect are within normal limits. 16:32 Abdomen/GI: Inspection: abdomen appears normal, Bowel sounds: normal, in all quadrants, Palpation: soft, in all quadrants, moderate abdominal tenderness, in the right upper quadrant. Vital Signs: 09:10 BP 127 / 96; Pulse 102; Resp 18; Temp 96.9(T); Pulse Ox 99% on R/A; Weight 99.79 kg; ww Height 5 ft. 4 in. (162.56 cm); Pain 7/10; 09:10 BP 127 / 96; Pulse 102; Resp 18; Temp 96.9(T); Pulse Ox 99% on R/A; ww 11:05 BP 126 / 96; Pulse 71; Resp 18; Pulse Ox 99% on R/A; ww 12:43 BP 130 / 95; Pulse 56; Resp 16; Pulse Ox 100% on R/A; ww 14:01 BP 110 / 70; Pulse 59; Resp 18; Pulse Ox 100% on R/A; ww 09:10 Body Mass Index 37.76 (99.79 kg, 162.56 cm) ww [place] Coma Score: 12:43 Eye Response: spontaneous(4). Verbal Response: oriented(5). Motor Response: obeys commands(6). Total: 15. MDM: 09:18 Patient medically screened. kb 12:52 Data reviewed: vital signs, nurses notes. Data interpreted: Pulse oximetry: on room air kb is 100 %. Interpretation: normal. Counseling: I had a detailed discussion with the patient and/or guardian regarding: the historical points, exam findings, and any diagnostic results supporting the discharge/admit diagnosis, lab results, radiology results, the need for outpatient follow up, a family practitioner, to return to the emergency department if symptoms worsen or persist or if there are any questions or concerns that arise at home. 08/17 09:07 Order name: Urine Microscopic Only kb 08/17 09:07 Order name: Urine Microscopic Only; Complete Time: 10:26 EDMS 08/17 09:15 Order name: Basic Metabolic Panel; Complete Time: 10:50 kb 08/17 09:15 Order name: CBC with Diff; Complete Time: 10:39 kb 08/17 09:15 Order name: Hepatic Function; Complete Time: 10:50 kb 08/17 09:15 Order name: Lipase; Complete Time: 10:50 kb 08/17 09:15 Order name: US Abdomen Limited; Complete Time: 11:34 kb 08/17 10:06 Order name: Urine Dipstick-Ancillary; Complete Time: 10:07 EDMS 08/17 10:07 Order name: Urine --Ancillary (enter results); Complete Time: 10:26 em1 08/17 10:51 Order name: CT Abd/Pelvis - IV Contrast Only; Complete Time: 11:34 kb 08/17 09:07 Order name: Urine Dipstick-Ancillary (obtain specimen); Complete Time: 10:08 kb 08/17 09:07 Order name: Urine Test (obtain specimen); Complete Time: 10:08 kb 08/17 09:15 Order name: IV Saline Lock; Complete Time: 10:26 kb 08/17 09:15 Order name: Labs collected and sent; Complete Time: 09:57 kb 08/17 10:08 Order name: Labs - recollect needed: please recollect cbc and basic; Complete Time: em1 10:26 Administered Medications: 10:35 Drug: Zofran (Ondansetron) 4 mg Route: IVP; Site: right forearm; ww 10:39 Drug: morphine 4 mg Route: IVP; Site: right forearm; ww 11:04 Drug: NS 0.9% 1000 ml Route: IV; Rate: 1000 ml; Site: right forearm; ww 12:38 Drug: Ketorolac 15 mg Route: IVP; Site: right forearm; ww Disposition: 19:48 Co-signature as Attending Physician, Theodore Carter MD I agree with the assessment and kdr plan of care. Disposition Summary: 08/17/21 12:06 Discharge Ordered Location: Home kb Condition: Stable kb Diagnosis - Abdominal pain, Generalized kb Followup: kb - With: Emergency Department - When: As needed - Reason: Worsening of condition Followup: kb - With: Private Physician - When: 2 - 3 days - Reason: Recheck today's complaints, Continuance of care, Re-evaluation by your physician Discharge Instructions: - Discharge Summary Sheet kb - Abdominal Pain, Adult, [id number] kb - Flank Pain, Adult, [id number] kb Forms: - Medication Reconciliation Form kb - Thank You Letter kb - Antibiotic Education kb - Prescription Opioid Use kb Prescriptions: - Zofran 4 mg Oral Tablet - take 1 tablet by ORAL route every 6 hours As needed; 20 tablet; Refills: 0, kb Product Selection Permitted - dicyclomine 20 mg Oral Tablet - take 1 tablet by ORAL route 4 times per day As needed; 20 tablet; Refills: 0, kb Product Selection Permitted Signatures: Dispatcher [employer] EDMS Keesha Campbell, MOTOR SCOOTER MECHANIC-C MOTOR SCOOTER MECHANIC-Ckb Theodore Carter MD MD kdr Martinez, Eric em1 Tameka Meredith RN RN ww Corrections: (The following items were deleted from the chart) 09:12 PMHx: Myocardial infarction; 09:12 PMHx: BRADYCARDIA; 09:12 PMHx: SVT; 09:12 PMHx: Vasovagal syndrome; 09:12 PMHx: Anxiety; 09:12 PMHx: sick sinus syndrome; 09:12 PMHx: hydronephrosis right kidney; 09:12 PMHx: Autonomic dysfunction; 09:12 PSHx: cardiac ablation x3; 09:12 PSHx: Tonsillectomy; 09:12 PSHx: Adenoid excision; 10:58 10:09 Stone Protocol+CT.RAD.BRZ ordered. EDMS EDMS 16:32 16:32 Abdomen/GI: Positive for abdominal pain, kb kb
--- NOTE | 2021-08-17 12:06 | ER ---
Nurse's Notes [facility] Name: Lara Palacio Age: 26 yrs Sex: Female : 1995 Arrival Date: 08/17/2021 Time: 09:06 Bed 11 Private MD: Diagnosis: Abdominal pain, Generalized Presentation: 08/17 09:10 Chief complaint: Patient states: Right upper quadrant abdominal pain that is radiating ww to the back. Onset of symptoms was August 14, 2021. 09:10 Method Of Arrival: Ambulatory ww 09:10 Acuity: DEEPA 3 ww 09:12 Coronavirus screen: Client denies travel out of the [place] in the last 14 days. At this ww time, the client does not indicate any symptoms associated with coronavirus-19. Ebola Screen: Patient negative for fever greater than or equal to 101.5 degrees Fahrenheit, and additional compatible Ebola Virus Disease symptoms Patient denies exposure to infectious person. Patient denies travel to an Ebola-affected area in the 21 days before illness onset. No symptoms or risks identified at this time. Initial Sepsis Screen: Does the patient meet any 2 criteria? No. Patient's initial sepsis screen is negative. Does the patient have a suspected source of infection? No. Patient's initial sepsis screen is negative. Risk Assessment: Do you want to hurt yourself or someone else? Patient reports no desire to harm self or others. Triage Assessment: 09:12 General: Appears uncomfortable, Behavior is calm, cooperative, appropriate for age. ww Pain: Complains of pain in abdomen Pain radiates to back Pain currently is 7 out of 10 on a pain scale. Quality of pain is described as sharp, tender. EENT: No deficits noted. No signs and/or symptoms were reported regarding the EENT system. Neuro: No deficits noted. Level of Consciousness is awake, alert, obeys commands, Oriented to person, place, time, situation, Appropriate for age Gait is steady, Speech is normal. Cardiovascular: Capillary refill < 3 seconds Chest pain is denied. Respiratory: No deficits noted. Airway is patent Respiratory effort is even, unlabored, Respiratory pattern is regular, symmetrical. GI: Abdomen is non-distended, Abdomen is tender to palpation in epigastric area and right upper quadrant. : Reports pain urinary frequency. Derm: No deficits noted. No signs and/or symptoms reported regarding the dermatologic system. Skin is intact, Skin is pink, warm \T\ dry. Skin temperature is warm. Musculoskeletal: No deficits noted. No signs and/or symptoms reported regarding the musculoskeletal system. 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 Flu vaccine status is unknown. - Social history:: Smoking status: Patient reports the use of cigarette tobacco products, denies chronic smoking, but will smoke occasionally. Screenin:53 Abuse screen: Denies threats or abuse. Denies injuries from another. Nutritional ww screening: No deficits noted. Tuberculosis screening: No symptoms or risk factors identified. Fall Risk None identified. Assessment: 11:53 Reassessment: Patient appears in no apparent distress at this time. No changes from ww previously documented assessment. Patient and/or family updated on plan of care and expected duration. Pain level reassessed. Patient states symptoms have not improved. Pain: Complains of pain in epigastric area, umbilical area, right upper quadrant and left upper quadrant. Neuro: Level of Consciousness is awake, alert, obeys commands, Oriented to person, place, time, situation, Appropriate for age Speech. 12:43 Reassessment: Patient appears in no apparent distress at this time. No changes from ww previously documented assessment. Patient states feeling better. 14:01 Reassessment: Patient appears in no apparent distress at this time. Patient states ww feeling better. Patient states symptoms have improved. Vital Signs: 09:10 BP 127 / 96; Pulse 102; Resp 18; Temp 96.9(T); Pulse Ox 99% on R/A; Weight 99.79 kg; ww Height 5 ft. 4 in. (162.56 cm); Pain 7/10; 09:10 BP 127 / 96; Pulse 102; Resp 18; Temp 96.9(T); Pulse Ox 99% on R/A; ww 11:05 BP 126 / 96; Pulse 71; Resp 18; Pulse Ox 99% on R/A; ww 12:43 BP 130 / 95; Pulse 56; Resp 16; Pulse Ox 100% on R/A; ww 14:01 BP 110 / 70; Pulse 59; Resp 18; Pulse Ox 100% on R/A; ww 09:10 Body Mass Index 37.76 (99.79 kg, 162.56 cm) ww [place] Coma Score: 12:43 Eye Response: spontaneous(4). Verbal Response: oriented(5). Motor Response: obeys ww commands(6). Total: 15. ED Course: 09:06 Patient arrived in ED. am2 09:07 Keesha Campbell FNP-C [facility]. kb 09:07 Theodore Carter MD is Attending Physician. kb 09:10 Arm band placed on right wrist. Patient placed in an exam room. ww 09:12 Triage completed. ww 09:18 Tameka Meredith, RN is Primary Nurse. ww 09:30 Patient has correct armband on for positive identification. Placed in gown. Bed in low ww position. Call light in reach. Side rails up X 1. Door closed. Warm blanket given. 09:40 US Abdomen Limited In Process Unspecified. EDMS 09:45 Missed attempt(s): 20 gauge in right antecubital area. ww 09:57 Basic Metabolic Panel Sent. ww 09:57 CBC with Diff Sent. ww 09:57 Hepatic Function Sent. ww 10:15 Missed attempt(s): 24 gauge in right antecubital area. Bleeding controlled, band aid iw applied, catheter tip intact. 10:23 Urine Microscopic Only Sent. ww 10:29 Initial lab(s) drawn, by me. Inserted saline lock: 24 gauge in right wrist, using iw aseptic technique. Blood collected. 11:15 CT Abd/Pelvis - IV Contrast Only In Process Unspecified. EDMS 14:01 No provider procedures requiring assistance completed. intact, bleeding controlled, No ww redness/swelling at site. Pressure dressing applied. Administered Medications: 10:35 Drug: Zofran (Ondansetron) 4 mg Route: IVP; Site: right forearm; ww 10:39 Drug: morphine 4 mg Route: IVP; Site: right forearm; ww 11:04 Drug: NS 0.9% 1000 ml Route: IV; Rate: 1000 ml; Site: right forearm; ww 12:38 Drug: Ketorolac 15 mg Route: IVP; Site: right forearm; ww Outcome: 12:06 Discharge ordered by . kb 14:01 Discharged to home ambulatory. ww 14:01 Condition: stable 14:01 Discharge instructions given to patient, Instructed on discharge instructions, follow up and referral plans. medication usage, safety practices, Demonstrated understanding of instructions, follow-up care, medications, Prescriptions given X 2. 14:02 Patient left the ED. ww Signatures: Dispatcher [employer] EDMS Keesha Campbell, MIX CHEMIST-C MIX CHEMIST-Ckb Misti Angeles, RN RN Aicha Doshi 2 Tameka Meredith RN RN ww Corrections: (The following items were deleted from the chart) 09:12 PMHx: Myocardial infarction; 09:12 PMHx: BRADYCARDIA; 09:12 PMHx: SVT; 09:12 PMHx: Vasovagal syndrome; 09:12 PMHx: Anxiety; 09:12 PMHx: sick sinus syndrome; 09:12 PMHx: hydronephrosis right kidney; 09:12 PMHx: Autonomic dysfunction; 09:12 PSHx: cardiac ablation x3; 09:12 PSHx: Tonsillectomy; 09:12 PSHx: Adenoid excision; 09:10 Resp 18bpm; Temp 96.9F Tympanic;
[2021-08-17] MEDS ORDERED: KETOROLAC 30 MG/ML INJ ONE (12:35)
[2021-08-17 14:11] VITALS: TEMP 96.9
[2021-08-17 14:14] VITALS: O2SAT 100
[2021-08-17 14:15] VITALS: BP 110/70
== END 2021-08-17 14:02 | disposition home or self-care (01) ==
LOC: ER 09:05
DX: R10.84 Generalized abdominal pain (principal); Z95.0 Presence of cardiac pacemaker
CPT/HCPCS: 85025; 80048; 36415; 81025; 80076; 83690; 74177; 76705; 96375; 96374; 99284; Q9967; J7030; J2405; 81003; 81015

== ENCOUNTER 2022-01-02 23:29 | Emergency (ER) | payer BC, SELFPAY ==
--- OUTSIDE RECORDS SUMMARY | 2022-01-02 23:33 | XMS REPORT | Continuity of Care Document ---
:1995 Author Organization [facility] t Address [address] [place] [address] Care Team Providers Name Role Phone Asked, [...] Drug Active Univers ALLERGIE Class ity of [facility] Family History Family Member Diagnosis Comments Start Date Stop Date Source Natural father Heart disease [facility] Maternal aunt Heart disease [facility] Maternal grandmother Heart disease [facility] Natural mother Heart disease [facility] Paternal grandmother Heart disease [facility] Social History Social Habit Start Date Stop Date Quantity Comments Source Tobacco use and 2019-05-15 2019-05-15 Never used [facility] exposure 00:00:00 00:00:00 Hospital Alcohol intake 2019-05-15 2019-05-15 Current drinker [facility] 00:00:00 00:00:00 of alcohol Hospital (finding) Alcohol Comment 2019-05-11 2019-05-11 social [facility] 00:00:00 00:00:00 Hospital Tobacco Comment 2019-05-11 2019-05-11 social only [facility] 00:00:00 00:00:00 Hospital Sex Ass[birth year] At [birth year] [facility] 00:00:00 00:00:00 Hospital Smoking Status Start Date Stop Date Source Current some day smoker 2019-05-15 00:00:00 [facility] Medications Ordered Filled Start Stop Current Ordering Indication Dosage Frequency Signature Comments Components Source Medication Medication Date Date Medication? Clinician (SIG) Name Name german 2018-0 Yes 53260 1{film} QD Place 1 Methodi ne-naloxone 9-[address] (SUBOXONE) 15:11: the tongue H ospita 2-0.5 mg 16 daily l film .Acute Pain. Procedures This patient has no known procedures. Plan of Care Planned Activity Planned Date Details Comments Source Future Scheduled Test Screening for [facility] malignant neoplasm of cervix (procedure) [code = 100236818] Future Scheduled Test INFLUENZA VACCINE [facility] [code = INFLUENZA VACCINE] Future Scheduled Test COVID-19 VACCINE (1) [facility] [code = COVID-19 VACCINE (1)] Future Scheduled Test Hepatitis C screening [facility] (procedure) [code = 071507319] Encounters Start End Encounter Admission Attending Care Care Encounter Source Date/Time Date/Time Type Type Clinicians Facility Department ID 2019-11-11 2019-11-11 Emergency [facility] [id number] 17:21:24 17:22:00 [place] [id number] [place] [id number] [place] [id number] 2019-11-11 2019-11-11 Emergency X [facility] ERT [id number] Univers 16:50:00 16:50:00 NIXON lopez [facility] 2017-12-22 2017-12-23 [facility] [id number] [address] [place] [address] 00:00:00 00:00:00 [facility] Results This patient has no known results.
== END 2022-01-03 01:28 | disposition left against medical advice (07) ==
LOC: ER 23:29
DX: Z02.9 Encounter for administrative examinations, unspecified (principal)

== ENCOUNTER 2022-01-04 11:57 | Inpatient (IN) | payer SELFPAY ==
--- OUTSIDE RECORDS SUMMARY | 2022-01-04 12:00 | XMS REPORT | Continuity of Care Document ---
:1995 Author Organization [facility] t Address [address] [place] [address] Care Team Providers Name Role Phone Asked, [...] Drug Active Univers ALLERGIE Class ity of [facility] Family History Family Member Diagnosis Comments Start Date Stop Date Source Natural father Heart disease [facility] Maternal aunt Heart disease [facility] Maternal grandmother Heart disease [facility] Natural mother Heart disease [facility] Paternal grandmother Heart disease [facility] Social History Social Habit Start Date Stop Date Quantity Comments Source Tobacco use and 2019-05-15 2019-05-15 Never used [facility] exposure 00:00:00 00:00:00 Hospital Alcohol intake 2019-05-15 2019-05-15 Current drinker [facility] 00:00:00 00:00:00 of alcohol Hospital (finding) Alcohol Comment 2019-05-11 2019-05-11 social [facility] 00:00:00 00:00:00 Hospital Tobacco Comment 2019-05-11 2019-05-11 social only [facility] t 00:00:00 00:00:00 Hospital Sex Ass[birth year] At [birth year] [facility] 00:00:00 00:00:00 Hospital Smoking Status Start Date Stop Date Source Current some day smoker 2019-05-15 00:00:00 [facility] Medications Ordered Filled Start Stop Current Ordering Indication Dosage Frequency Signature Comments Components Source Medication Medication Date Date Medication? Clinician (SIG) Name Name german 2019-0 Yes [id number] 1{film} QD Place 1 Methodi ne-naloxone 9-[address] (SUBOXONE) 15:11: the tongue H ospita 2-0.5 mg 16 daily l film .Acute Pain. Procedures This patient has no known procedures. Plan of Care Planned Activity Planned Date Details Comments Source Future Scheduled Test Screening for [facility] malignant neoplasm of cervix (procedure) [code = 951073554] Future Scheduled Test INFLUENZA VACCINE [facility] [code = INFLUENZA VACCINE] Future Scheduled Test COVID-19 VACCINE (1) [facility] [code = COVID-19 VACCINE (1)] Future Scheduled Test Hepatitis C screening [facility] (procedure) [code = 836407576] Encounters Start End Encounter Admission Attending Care Care Encounter Source Date/Time Date/Time Type Type Clinicians Facility Department ID 2019-11-11 2019-11-11 Emergency [facility] [id number] 17:21:24 17:22:00 [place] [id number] [place] [id number] [place] [id number] 2019-11-11 2019-11-11 Emergency X [facility] ERT [id number] Univers 16:50:00 16:50:00 NIXON lopez [facility] 2017-12-22 2017-12-23 Outpatient [facility] [id number] [address] [place] [address] 00:00:00 00:00:00 [facility] Results This patient has no known results.
[2022-01-04] MEDS ORDERED: ONDANSETRON 4 MG/2 ML VIAL ONE ×2 (12:30→14:14)
[2022-01-04] MEDS ORDERED: NA CHLORIDE 0.9% 1,000 ML ONE ×2 (12:30→14:36)
[2022-01-04] MEDS ORDERED: FAMOTIDINE 20 MG/2 ML VIAL IV ONE (12:30)
[2022-01-04 12:36] LABS: Absolute Lymphocytes (CBC) 1.8 K/uL (0.7-4.9); Hematocrit 36.4 % (36.0-45.0); Lymphocytes % 15.3 % (15.3-44.8); MPV 7.4 fL (7.6-11.3); RBC Red Blood Cell Count 4.32 M/uL (3.86-4.86)
[2022-01-04 12:39] LABS: Urine Blood Trace-intact (Negative); Urine Glucose Negative (Negative); Urine Protein 1+ (Negative); Urine Specific Gravity 1.015 (1.005-1.030)
[2022-01-04 12:56] LABS: Albumin 3.4 g/dL (3.4-5.0); Bilirubin Total 0.5 mg/dL (0.2-1.0); Potassium 3.7 mmol/L (3.5-5.1); Protein, Total 8.1 g/dL (6.4-8.2)
[2022-01-04 13:03] LABS: Urine Bacteria >50 /HPF (<20); Urine RBC NONE SEEN /HPF (NONE SEEN)
[2022-01-04 13:11] LABS: Urine Mucus 1+ /HPF (NONE SEEN)
[2022-01-04 13:31] LABS: Urine Specific Gravity/Preg 1.015 (1.005-1.030)
--- NOTE | 2022-01-04 13:52 | RAD REPORT ---
EXAM DESCRIPTION: CTAbdomen Pelvis W Contrast - 01/04/2022 1:36 pm CLINICAL HISTORY: Abdominal pain, acute, nonlocalized COMPARISON: Abdomen Pelvis W Contrast dated 08/17/2021; Abdomen Pelvis W Contrast dated 9 TECHNIQUE: CT of the abdomen and pelvis was performed. All CT scans are performed using dose optimization technique as appropriate and may include automated exposure control or mA/KV adjustment according to patient size. FINDINGS: Lower chest: Pacemaker. Liver: No acute abnormality or suspicious lesions. Biliary: No biliary ductal dilatation. Stomach: No significant focal abnormality. Duodenum: No significant focal abnormality. Pancreas: No significant abnormality. Spleen: No significant abnormality. Adrenal: No suspicious lesions. Kidney/ureter: Striated bilateral nephrogram with small cystic collection along the lower pole the ri ght kidney measuring 8 millimeters. This may represent early abscess formation. No hydronephrosis. Retroperitoneum: No retroperitoneal adenopathy. Vascular: No aneurysm. Bowel: No significant focal abnormality. Peritoneum: No ascites or free air. Bladder: Grossly unremarkable. Reproductive: No adnexal masses. Bones: No acute fracture. Other: n/a IMPRESSION: Bilateral pyelonephritis with possible early abscess formation at the right kidney. No h ydronephrosis.
[2022-01-04] MEDS ORDERED: CEFTRIAXONE 1000 MG/VIAL ONE (14:08)
[2022-01-04] MEDS ORDERED: NA CHLORIDE 0.9% 100 ML IV ONE (14:09)
[2022-01-04] MEDS ORDERED: FENTANYL CITR 100 MCG/2 ML ONE (14:14)
[2022-01-04] MEDS ORDERED: BISACODYL 10 MG RECTAL SUPP ONE (14:35)
[2022-01-04] MEDS ORDERED: ACETAMINOPHEN 325 MG TABLET ONE (14:36)
[2022-01-04] MEDS ORDERED: LACTULOSE 20 GM/30 ML UCUP ONE (14:36)
--- NOTE | 2022-01-04 14:48 | ER ---
Nurse's Notes [facility] Name: Lara Palacio Age: 26 yrs Sex: Female : 1995 Arrival Date: 01/04/2022 Time: 11:58 Bed 8 Private MD: Diagnosis: Pyelonephritis acute-bilateralwith small right renal abscess, 8mm;Fever, unspecified;Constipation Presentation: 01/04 12:10 Chief complaint: Patient states: Last BM >2 weeks ago, reports right sided abdominal jl7 pain, N/V x4 days. Coronavirus screen: At this time, the client does not indicate any symptoms associated with coronavirus-19. Ebola Screen: No symptoms or risks identified at this time. Initial Sepsis Screen: Does the patient meet any 2 criteria? No. Patient's initial sepsis screen is negative. Does the patient have a suspected source of infection? No. Patient's initial sepsis screen is negative. Risk Assessment: Do you want to hurt yourself or someone else? Patient reports no desire to harm self or others. Onset of symptoms was January 01, 2022. Care prior to arrival: None. 12:10 Method Of Arrival: Ambulatory jl7 12:10 Acuity: DEEPA 3 jl7 Triage Assessment: 12:14 General: Appears in no apparent distress. uncomfortable, Behavior is calm, cooperative, jl7 appropriate for age. Pain: Complains of pain in right upper quadrant Pain radiates to abdomen diffusely Pain currently is 7 out of 10 on a pain scale. Pain began 2-3 days ago. Is continuous. Neuro: Starr Agitation-Sedation Scale (RASS): 0 - Alert and Calm Oriented to person, place, time, situation. Cardiovascular: Patient's skin is warm and dry. Respiratory: Airway is patent Respiratory effort is even, unlabored, Respiratory pattern is regular, symmetrical. GI: Reports bloating, constipation, nausea, vomiting. : Denies burning with urination. Derm: Skin is pink, warm \T\ dry. 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 - Social history:: Smoking status: Patient denies any tobacco usage or history of. Screenin:15 Abuse screen: Denies threats or abuse. Denies injuries from another. Nutritional jl7 screening: No deficits noted. Tuberculosis screening: No symptoms or risk factors identified. Fall Risk IV access (20 points). Total Castro Fall Scale indicates No Risk (0-24 pts). Assessment: 12:15 General: See triage assessment. jl7 13:15 Reassessment: Patient appears in no apparent distress at this time. No changes from jl7 previously documented assessment. Patient and/or family updated on plan of care and expected duration. Pain level reassessed. Patient is alert, oriented x 3, equal unlabored respirations, skin warm/dry/pink. 14:17 Reassessment: Patient appears in no apparent distress at this time. Patient and/or jl7 family updated on plan of care and expected duration. Pain level reassessed. Patient is alert, oriented x 3, equal unlabored respirations, skin warm/dry/pink. ERD at bedside discussing results and POC. 14:25 GI: Pt remains adamant of no BM in >2 weeks, ERD notified see [facility] for orders Bowel jl7 sounds hypoactive in right upper quadrant, left upper quadrant, right lower quadrant and left lower quadrant Abd is soft X 4 quads Abdomen is tender to palpation X 4 quads. Reports constipation, Patient currently denies flatulence. 15:00 Reassessment: Dr. Day at bedside. jl7 15:10 Reassessment: Pt reports having the urge for a BM, pt wheeled to bathroom at this time. jl7 15:28 Reassessment: Pt reports she was able to have a BM and reports decreased pain at this jl7 time. Vital Signs: 12:10 BP 133 / 89; Pulse 120; Resp 17; Temp 100.3; Pulse Ox 99% ; Weight 90.72 kg; Height 5 jl7 ft. 4 in. (162.56 cm); Pain 7/10; 12:59 BP 119 / 83; Pulse 102; Resp 15; Pulse Ox 100% ; jl7 14:17 BP 132 / 81; Pulse 102; Resp 15; Pulse Ox 100% ; jl7 14:17 Temp 99.8(O); jl7 15:30 BP 121 / 86; Pulse 93; Resp 15; Pulse Ox 100% ; jl7 12:10 Body Mass Index 34.33 (90.72 kg, 162.56 cm) 7 ED Course: 11:58 Patient arrived in ED. am2 12:04 Geovani Clark MD is Attending Physician. brielle 12:10 Barak Kramer, CARMELA is Primary Nurse. jl7 12:14 Triage completed. jl7 12:14 Arm band placed on right wrist. jl7 12:15 Patient has correct armband on for positive identification. Bed in low position. Call [facility] light in reach. Side rails up X 1. Client placed on continuous cardiac and pulse oximetry monitoring. NIBP monitoring applied. 12:29 Inserted saline lock: 22 gauge in right wrist, using aseptic technique. Blood collected. 12:29 CBC with Diff Sent. zm 12:29 CMP Sent. zm 12:29 Lipase Sent. zm 12:29 Initial lab(s) drawn, by ED staff, sent to lab. Urine collected: clean catch specimen, [facility] cloudy. 13:00 Urine --Ancillary (enter results) Sent. jl7 13:38 CT Abd/Pelvis - IV Contrast Only In Process Unspecified. EDMS 14:42 Marques Day is Hospitalizing Provider. [facility] 17:57 No provider procedures requiring assistance completed. Patient admitted, IV remains in [facility] place. intact, No redness/swelling at site. Administered Medications: 12:45 Drug: NS 0.9% 1000 ml Route: IV; Rate: 1 bolus; Site: right wrist; jl7 13:15 Follow up: Response: No adverse reaction; IV Status: Completed infusion; IV Intake: jl7 1000ml 12:45 Drug: Pepcid (famotidine) 20 mg Route: IVP; Site: right wrist; jl7 14:20 Follow up: Response: No adverse reaction 7 12:47 Drug: Zofran (Ondansetron) 4 mg Route: IVP; Site: right wrist; jl7 13:15 Follow up: Response: No adverse reaction; Nausea is decreased jl7 14:13 Drug: Zofran (Ondansetron) 4 mg Route: IVP; Site: right wrist; jl7 15:06 Follow up: Response: No adverse reaction jl7 14:15 Drug: fentaNYL (PF) 50 mcg Route: IVP; Site: right wrist; jl7 14:45 Follow up: Response: No adverse reaction; Pain is unchanged, physician notified jl7 14:18 Drug: Rocephin (cefTRIAXone) 1 grams Route: IV; Rate: per protocol; Site: right wrist; jl7 14:30 Follow up: Response: No adverse reaction; IV Status: Completed infusion jl7 14:18 Drug: Rocephin (cefTRIAXone) 1 grams Route: IV; Rate: per protocol; Site: right wrist; jl7 14:30 Follow up: Response: No adverse reaction; IV Status: Completed infusion jl7 14:35 Drug: Dulcolax (bisacodyl) Suppository 10 mg Route: FL; jl7 15:09 Follow up: Response: No adverse reaction jl7 15:29 Follow up: Response: Marked relief of symptoms jl7 14:35 Drug: NS 0.9% 1000 ml Route: IV; Rate: 1 bolus; Site: right wrist; jl7 14:50 Drug: Tylenol 1000 mg Route: PO; jl7 14:55 Drug: morphine 4 mg Route: IVP; Site: right wrist; jl7 15:06 Drug: LevaQUIN (levofloxacin) 750 mg Volume: 150 ml; Route: IVPB; Infused Over: 90 jl7 mins; Site: right wrist; 15:29 Not Given (Patient Refused): Lactulose 30 grams 45 ml PO once jl7 Intake: 13:15 IV: 1000ml; Total: 1000ml. jl7 Outcome: 14:48 Decision to Hospitalize by Provider. brielle 17:57 Admitted to Med/surg accompanied by gwen, via stretcher, room 217, with chart, Report jl7 called to carmela Chandler 17:57 Condition: stable 17:57 Discharge instructions given to patient, Instructed on the need for admit, Demonstrated understanding of instructions. 17:59 Patient left the ED. jl7 Signatures: Dispatcher [employer] Geovani Tijerina MD MD cha Leal, Jahala RN RN jl7 Aicha Doshi Zaina zm
--- NOTE | 2022-01-04 14:48 | EDPHYS ---
Physician Documentation [facility] Name: Lara Palacio Age: 26 yrs Sex: Female : 1995 Arrival Date: 01/04/2022 Time: 11:58 Bed 8 Private MD: KATIE Physician Geovani Clark HPI: 01/04 14:25 This 26 yrs old Female presents to ER via Ambulatory with complaints of brielle Fever, Nausea/Vomiting, Abdominal Pain - right side, Decreased Appetite, Dizziness. 14:25 The patient reports fever, that was measured at 100.3 degrees Fahrenheit. Onset: The brielle symptoms/episode began/occurred 7 day(s) ago. Modifying factors: there are no obvious modifying factors. Associated signs and symptoms: Pertinent positives: backache. 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 - Social history:: Smoking status: Patient denies any tobacco usage or history of. ROS: 14:26 Eyes: Negative for injury, pain, redness, and discharge, ENT: Negative for injury, brielle pain, and discharge, Neck: Negative for injury, pain, and swelling, Cardiovascular: Negative for chest pain, palpitations, and edema, Respiratory: Negative for shortness of breath, cough, wheezing, and pleuritic chest pain, Abdomen/GI: Negative for abdominal pain, nausea, vomiting, diarrhea, and constipation, : Negative for injury, bleeding, discharge, and swelling, MS/Extremity: Negative for injury and deformity, Skin: Negative for injury, rash, and discoloration, Neuro: Negative for headache, weakness, numbness, tingling, and seizure, Psych: Negative for depression, anxiety, suicide ideation, homicidal ideation, and hallucinations, Allergy/Immunology: Negative for hives, rash, and allergies, Endocrine: Negative for neck swelling, polydipsia, polyuria, polyphagia, and marked weight changes, Hematologic/Lymphatic: Negative for swollen nodes, abnormal bleeding, and unusual bruising. 14:26 Back: Positive for flank pain, on the right. Exam: 14:26 Constitutional: This is a well developed, well nourished patient who is awake, alert, brielle and in no acute distress. Head/Face: Normocephalic, atraumatic. Eyes: Pupils equal round and reactive to light, extra-ocular motions intact. Lids and lashes normal. Conjunctiva and sclera are non-icteric and not injected. Cornea within normal limits. Periorbital areas with no swelling, redness, or edema. ENT: Nares patent. No nasal discharge, no septal abnormalities noted. Tympanic membranes are normal and external auditory canals are clear. Oropharynx with no redness, swelling, or masses, exudates, or evidence of obstruction, uvula midline. Mucous membranes moist. Neck: Trachea midline, no thyromegaly or masses palpated, and no cervical lymphadenopathy. Supple, full range of motion without nuchal rigidity, or vertebral point tenderness. No Meningismus. Chest/axilla: Normal chest wall appearance and motion. Nontender with no deformity. No lesions are appreciated. Cardiovascular: Regular rate and rhythm with a normal S1 and S2. No gallops, murmurs, or rubs. Normal PMI, no JVD. No pulse deficits. Respiratory: Lungs have equal breath sounds bilaterally, clear to auscultation and percussion. No rales, rhonchi or wheezes noted. No increased work of breathing, no retractions or nasal flaring. Abdomen/GI: Soft, non-tender, with normal bowel sounds. No distension or tympany. No guarding or rebound. No evidence of tenderness throughout. Female : Normal external genitalia. Skin: Warm, dry with normal turgor. Normal color with no rashes, no lesions, and no evidence of cellulitis. MS/ Extremity: Pulses equal, no cyanosis. Neurovascular intact. Full, normal range of motion. Neuro: Awake and alert, GCS 15, oriented to person, place, time, and situation. Cranial nerves II-XII grossly intact. Motor strength 5/5 in all extremities. Sensory grossly intact. Cerebellar exam normal. Normal gait. Psych: Awake, alert, with orientation to person, place and time. Behavior, mood, and affect are within normal limits. 14:26 Back: pain, that is mild, ROM is normal, normal spinal alignment noted, CVA tenderness. Vital Signs: 12:10 BP 133 / 89; Pulse 120; Resp 17; Temp 100.3; Pulse Ox 99% ; Weight 90.72 kg; Height 5 jl7 ft. 4 in. (162.56 cm); Pain 7/10; 12:59 BP 119 / 83; Pulse 102; Resp 15; Pulse Ox 100% ; jl7 14:17 BP 132 / 81; Pulse 102; Resp 15; Pulse Ox 100% ; jl7 14:17 Temp 99.8(O); jl7 15:30 BP 121 / 86; Pulse 93; Resp 15; Pulse Ox 100% ; jl7 12:10 Body Mass Index 34.33 (90.72 kg, 162.56 cm) 7 MDM: 12:05 Patient medically screened. [facility] 14:28 Differential diagnosis: nephrolithiasis, pyelonephritis, UTI, diverticulitis, brielle pancreatitis, viral Infection, bacterial infection, URI, bronchitis, pneumonia UTI, gastroenteritis, appendicitis. Data reviewed: vital signs, nurses notes, radiologic studies. Data interpreted: Pulse oximetry: on room air is 100 %. Test interpretation: by ED physician or midlevel provider:. Counseling: I had a detailed discussion with the patient and/or guardian regarding: the historical points, exam findings, and any diagnostic results supporting the discharge/admit diagnosis, lab results, radiology results. 01/04 12:05 Order name: CBC with Diff; Complete Time: 12:58 [facility] 01/04 12:05 Order name: CMP; Complete Time: 12:58 [facility] 01/04 12:05 Order name: Lipase; Complete Time: 12:58 [facility] 01/04 12:39 Order name: Urine Microscopic Only; Complete Time: 13:16 iw 01/04 12:39 Order name: Urine Culture iw 01/04 12:39 Order name: Urine Dipstick-Ancillary; Complete Time: 12:58 EDMS 01/04 12:05 Order name: CT Abd/Pelvis - IV Contrast Only; Complete Time: 14:24 [facility] 01/04 12:58 Order name: Urine --Ancillary (enter results); Complete Time: 13:46 bd 01/04 13:58 Order name: Lactate [facility] 01/04 13:58 Order name: Blood Culture Adult (2) [facility] 01/04 14:01 Order name: Procalcitonin [facility] 01/04 14:01 Order name: SARS-COV-2 RT PCR (Document "Date of Onset" if Symptomatic) [facility] 01/04 12:05 Order name: IV Saline Lock; Complete Time: 12:29 [facility] 01/04 12:05 Order name: Labs collected and sent; Complete Time: 12:29 [facility] 01/04 12:05 Order name: Urine Dipstick-Ancillary (obtain specimen); Complete Time: 12:59 [facility] 01/04 12:05 Order name: Urine Test (obtain specimen); Complete Time: 12:59 [facility] Administered Medications: 12:45 Drug: NS 0.9% 1000 ml Route: IV; Rate: 1 bolus; Site: right wrist; jl7 13:15 Follow up: Response: No adverse reaction; IV Status: Completed infusion; IV Intake: jl7 1000ml 12:45 Drug: Pepcid (famotidine) 20 mg Route: IVP; Site: right wrist; jl7 14:20 Follow up: Response: No adverse reaction jl7 12:47 Drug: Zofran (Ondansetron) 4 mg Route: IVP; Site: right wrist; jl7 13:15 Follow up: Response: No adverse reaction; Nausea is decreased jl7 14:13 Drug: Zofran (Ondansetron) 4 mg Route: IVP; Site: right wrist; jl7 15:06 Follow up: Response: No adverse reaction jl7 14:15 Drug: fentaNYL (PF) 50 mcg Route: IVP; Site: right wrist; jl7 14:45 Follow up: Response: No adverse reaction; Pain is unchanged, physician notified jl7 14:18 Drug: Rocephin (cefTRIAXone) 1 grams Route: IV; Rate: per protocol; Site: right wrist; jl7 14:30 Follow up: Response: No adverse reaction; IV Status: Completed infusion jl7 14:18 Drug: Rocephin (cefTRIAXone) 1 grams Route: IV; Rate: per protocol; Site: right wrist; jl7 14:30 Follow up: Response: No adverse reaction; IV Status: Completed infusion jl7 14:35 Drug: Dulcolax (bisacodyl) Suppository 10 mg Route: [place]; jl7 15:09 Follow up: Response: No adverse reaction jl7 15:29 Follow up: Response: Marked relief of symptoms jl7 14:35 Drug: NS 0.9% 1000 ml Route: IV; Rate: 1 bolus; Site: right wrist; jl7 14:50 Drug: Tylenol 1000 mg Route: PO; jl7 14:55 Drug: morphine 4 mg Route: IVP; Site: right wrist; jl7 15:06 Drug: LevaQUIN (levofloxacin) 750 mg Volume: 150 ml; Route: IVPB; Infused Over: 90 jl7 mins; Site: right wrist; 15:29 Not Given (Patient Refused): Lactulose 30 grams 45 ml PO once jl7 Disposition Summary: 01/04/22 14:48 Hospitalization Ordered Hospitalization Status: Inpatient Admission brielle Provider: Marques Day cha Location: Telemetry/MedSurg (Inpatient) brielle Condition: Fair brielle Problem: new brielle Symptoms: have improved brielle Bed/Room Type: Standard [facility] Room Assignment: 217(01/04/22 16:52) bd Diagnosis - Pyelonephritis acute - bilateralwith small right renal abscess, 8mm brielle - Fever, unspecified brielle - Constipation brielle Forms: - Medication Reconciliation Form brielle - SBAR form brielle Signatures: Dispatcher [employer] EDBella Pinzon Corey, MD MD cha Leal, Jahala RN RN jl7 Alcira Sibley FNP HR ASSISTANT jh7 Corrections: (The following items were deleted from the chart) 16:52 14:48 brielle bd
[2022-01-04] MEDS ORDERED: MORPHINE 4 MG/ML SYR ONE (14:55)
[2022-01-04] MEDS ORDERED: Levofloxacin 750mg IV 750 MG/150 ML BAG IV ONE (15:06)
--- NOTE | 2022-01-04 15:33 | P.HP ---
Certification for Inpatient Patient admitted to: Inpatient With expected LOS: >2 Midnights Practitioner: I am a practitioner with admitting privileges, knowledge of patient current condition, hospital course, and medical plan of care. Services: Services provided to patient in accordance with Admission requirements found in Title 42 Section 412.3 of the Code of Federal Regulations Patient History Date of Service: 01/04/22 Reason for admission: Fever, Constipation History of Present Illness: -year-old woman with a history of bradycardia status cardiac ablation and post pacemaker, postural hypotension presented to the emergency department with a complaint of constipation of 2 weeks and abdominal pain. Symptoms associated with fever, nausea, chills and rigors. She also reports right flank pain, denied dysuria or increased urinary frequency. CT abdomen and pelvis done in the ED demonstrated bilateral pyelonephritis and early right renal abscess. Patient febrile in the ED with tachycardia and meet criteria for sepsis. Sepsis protocol initiated patient given IV normal saline and IV Rocephin. She is admitted for further management. - Past Medical/Surgical History -: Bradycardia -: Postural hypotension -: Cardiac ablation -: Pacemaker - Social History Smoking Status: Current some day smoker Alcohol use: No CD- Drugs: No Place of Residence: Home Review of Systems Other: Except as documented, all other systems reviewed and negative. Physical Examination - Physical Exam General: Alert, In no apparent distress, Oriented x3 HEENT: PERRLA, Mucous membr. moist/pink, Sclerae nonicteric Neck: Supple, JVD not distended, No Thyromegaly Respiratory: Clear to auscultation bilaterally, Normal air movement Cardiovascular: No edema, Normal S1 S2, Other Gastrointestinal: Normal bowel sounds, Soft and benign, Non-distended, Tenderness (Right flank tenderness) Musculoskeletal: No swelling, No tenderness Integumentary: No rashes, No erythema, No cyanosis Neurological: Normal speech, Normal strength at 5/5 x4 extr, Cranial nerves 3-12 intact Lymphatics: No axilla or inguinal lymphadenopathy - Studies Laboratory Data (last 24 hrs) 01/04/22 12:26: Sodium 136, Potassium 3.7, BUN 4 L, Creatinine 0.95, Glucose 111 H, Total Bilirubin 0.5, AST 24, ALT 43, Alkaline Phosphatase 121 H, Lipase 52 L 01/04/22 12:26: WBC 11.7 H, Hgb 12.2, Hct 36.4, Plt Count 399 Assessment and Plan - Problems (Diagnosis) (1) Acute pyelonephritis Current Visit: Yes Status: Acute (2) Renal abscess Current Visit: Yes Status: Acute (3) Functional constipation Current Visit: Yes Status: Acute - Plan Admit to the medical floor. Continue sepsis protocol initiated in the ED. Aggressive antibiotics with IV Zosyn. Follow urine culture and blood cultures. Supportive measures with IV opioids as needed for pain, antiemetic as needed. Renal ultrasound in 48 hours to follow the abscess. Continue metoprolol for tachybradycardia syndrome. Treat constipation with stool softeners and laxatives. - Advance Directives Does patient have a Living Will: No Does patient have a Durable POA for Healthcare: No
--- NOTE | 2022-01-04 19:06 | P.INFCA ---
Sepsis Focused Assessment - Sepsis Screen Result Severe Sepsis: Positive - Evaluation Current stage of sepsis: Severe sepsis - Vital Signs Reviewed: Yes Heart rate: 93 Blood Pressure: 121/86 Respiratory Rate: 15 - Examination Date exam was performed: 01/04/22 Time exam was performed: 18:20 Heart: Regular rate/rhythm Lungs: Clear bilaterally Peripheral pulses: 3+ Normal Capillary refill: <2 Seconds Skin examination: Normal turgor
[2022-01-04] MEDS: PIPER TAZO 3.375 GM in NA CHLORIDE 0.9% 100 ML IV SCH (19:31)
[2022-01-04] MEDS: NA CHLORIDE 0.9% 1,000 ML IV SCH (19:32)
[2022-01-04] MEDS: MORPHINE 2 MG/ML SYR IV PRN (19:32)
[2022-01-04] MEDS: ONDANSETRON 4 MG/2 ML VIAL IV PRN (19:34)
[2022-01-04] MEDS: HYDROCODONE/APAP 5/325 MG TAB PO PRN (20:22)
[2022-01-04] MEDS: SENOSIDES 8.6 MG TAB PO SCH (20:23)
[2022-01-04] MEDS ORDERED: FENTANYL CITR 100 MCG/2 ML IV ONE (22:16)
[2022-01-04 22:29] LABS: Urine Appearance Clear (Clear); Urine Bilirubin Negative (Negative); Urine Blood Negative (Negative); Urine Color Yellow (Yellow); Urine Glucose Negative (Negative); Urine Protein Negative (Negative); Urine Specific Gravity 1.015 (1.005-1.030); Urine Urobilinogen 0.2 mg/dL (0.2-1.0); Urine pH 6.5 (5.0-7.0)
[2022-01-04 22:31] LABS: Urine Microscopic Reflex NO UMIC
[2022-01-04] MEDS ORDERED: ZOLPIDEM TARTRATE 10 MG TABLET PO ONE (23:16)
[2022-01-04] MEDS ORDERED: ZOLPIDEM TARTRATE 5 MG TABLET PO ONE (23:28)
[2022-01-05 00:51] VITALS: BMI 34.3
[2022-01-05] MEDS: PIPER TAZO 3.375 GM in NA CHLORIDE 0.9% 100 ML IV SCH ×3 (01:59→17:01)
[2022-01-05] MEDS: NA CHLORIDE 0.9% 1,000 ML IV SCH ×2 (04:41→14:03)
[2022-01-05] MEDS: MORPHINE 2 MG/ML SYR IV PRN ×3 (04:45→17:02)
[2022-01-05] MEDS: ONDANSETRON 4 MG/2 ML VIAL IV PRN ×3 (04:45→17:02)
[2022-01-05 04:51] LABS: Blood Gas Oxyhemoglobin 93.4 % (94-97); Blood O2 Saturation 95.1 % (92-98.5)
[2022-01-05] MEDS: HYDROCODONE/APAP 5/325 MG TAB PO PRN ×3 (05:35→20:16)
[2022-01-05 07:11] LABS: Absolute Lymphocytes (CBC) 1.5 K/uL (0.7-4.9); Hematocrit 31.1 % (36.0-45.0); Lymphocytes % 12.8 % (15.3-44.8); RBC Red Blood Cell Count 3.73 M/uL (3.86-4.86)
[2022-01-05 07:24] LABS: Bicarbonate 27 mmol/L (21-32); Glomerular Filtration Rate 78 mL/min (=/>90); Glucose Level 133 mg/dL (74-106); Magnesium 1.9 mg/dL (1.8-2.4); Phosphorus 2.3 mg/dL (2.5-4.9); Potassium 3.6 mmol/L (3.5-5.1); Sodium Level 136 mmol/L (136-145)
[2022-01-05 07:25] LABS: BUN Blood Urea Nitrogen < 3 mg/dL (7-18)
[2022-01-05] MEDS ORDERED: PIPERACIL/TAZO 3.375 GM VIAL IV ONE (07:47)
[2022-01-05] MEDS: POTASS/SODIUM PHOSPHATE 1 PKT POWD.PACK PO SCH ×3 (08:13→10:24)
[2022-01-05] MEDS: SENOSIDES 8.6 MG TAB PO SCH ×2 (08:14→20:17)
[2022-01-05] MEDS: ENOXAPARIN 40 MG/0.4 ML SQ SCH (08:14)
[2022-01-05] MEDS ORDERED: NA CHLORIDE 0.9% 100 ML ONE (08:28)
[2022-01-05] MEDS ORDERED: POTASSIUM CL SA 10 MEQ TAB PO ONE (09:00)
[2022-01-05] MEDS: ACETAMINOPHEN 500 MG TAB PO PRN ×2 (10:30→20:16)
--- NOTE | 2022-01-05 17:48 | P.PN ---
Subjective Date of Service: 01/05/22 Chief Complaint: Fever, Constipation Patient complaining of persistent right-sided flank pain. She also reported intermittent fever and night sweats. Physical Examination - Vital Signs Temperature: 99.9 F Blood Pressure: 113/56 Pulse: 96 Respirations: 18 Pulse Ox (%): 96 - Physical Exam General: Alert, In no apparent distress, Oriented x3 HEENT: Mucous membr. moist/pink Neck: JVD not distended Respiratory: Clear to auscultation bilaterally, Normal air movement Cardiovascular: No edema, Regular rate/rhythm, Normal S1 S2, No murmurs Gastrointestinal: Normal bowel sounds, Soft and benign, Non-distended, Tenderness (Right flank) Musculoskeletal: No swelling, No tenderness Integumentary: No rashes, No erythema, No cyanosis Neurological: Normal strength at 5/5 x4 extr Assessment And Plan - Current Problems (Diagnosis) (1) Acute pyelonephritis Current Visit: Yes Status: Acute (2) Renal abscess Current Visit: Yes Status: Acute (3) Functional constipation Current Visit: Yes Status: Acute - Plan Continue IV Zosyn. Urine culture growing gram-negative rods. Follow urine culture and blood cultures. Supportive measures with IV opioids as needed for pain, antiemetic as needed. Renal ultrasound on Saturday to follow the abscess. Continue metoprolol for tachybradycardia syndrome. Continue stool softeners and laxatives for constipation.
[2022-01-05] MEDS ORDERED: PROMETHAZINE INJ 25 MG/ML AMP IV ONE (20:27)
[2022-01-06] MEDS: PIPER TAZO 3.375 GM in NA CHLORIDE 0.9% 100 ML IV SCH ×2 (00:14→08:06)
[2022-01-06] MEDS: NA CHLORIDE 0.9% 1,000 ML IV SCH ×3 (00:15→20:42)
[2022-01-06] MEDS: MORPHINE 2 MG/ML SYR IV PRN ×5 (00:15→20:30)
[2022-01-06 04:33] LABS: Absolute Lymphocytes (CBC) 2.2 K/uL (0.7-4.9); Hematocrit 32.2 % (36.0-45.0); Lymphocytes % 21.2 % (15.3-44.8); MPV 7.5 fL (7.6-11.3); RBC Red Blood Cell Count 3.83 M/uL (3.86-4.86)
[2022-01-06 04:44] LABS: BUN Blood Urea Nitrogen < 3 mg/dL (7-18); Bicarbonate 29 mmol/L (21-32); Glomerular Filtration Rate 73 mL/min (=/>90); Glucose Level 98 mg/dL (74-106); Potassium 3.8 mmol/L (3.5-5.1); Sodium Level 139 mmol/L (136-145)
[2022-01-06] MEDS: ONDANSETRON 4 MG/2 ML VIAL IV PRN ×3 (05:31→22:20)
[2022-01-06] MEDS: HYDROCODONE/APAP 5/325 MG TAB PO PRN ×3 (05:31→22:19)
[2022-01-06] MEDS: ENOXAPARIN 40 MG/0.4 ML SQ SCH (08:06)
[2022-01-06] MEDS: SENOSIDES 8.6 MG TAB PO SCH ×2 (08:07→20:30)
[2022-01-06] MEDS ORDERED: POTASSIUM CL SA 10 MEQ TAB PO ONE (09:00)
--- NOTE | 2022-01-06 13:21 | P.PN ---
Subjective Date of Service: 01/06/22 Chief Complaint: Fever, Constipation Patient complaining of persistent right-sided flank pain and weight intermittent fever. No fever since this morning. Physical Examination - Vital Signs Temperature: 99.3 F Blood Pressure: 106/61 Pulse: 76 Respirations: 18 Pulse Ox (%): 96 - Physical Exam General: Alert, In no apparent distress, Oriented x3 HEENT: Mucous membr. moist/pink Neck: JVD not distended Respiratory: Clear to auscultation bilaterally, Normal air movement Cardiovascular: No edema, Regular rate/rhythm, Normal S1 S2 Gastrointestinal: Soft and benign, Non-distended, Tenderness (Right flank) Musculoskeletal: No swelling Integumentary: No rashes, No cyanosis Neurological: Normal strength at 5/5 x4 extr - Studies Microbiology Data (last 24 hrs): 01/04/22 12:42 Clean Catch Urine [place] Count - Final >100,000 CFU/ML. 01/04/22 12:42 Clean Catch Urine - Final Escherichia Coli Esbl Assessment And Plan - Current Problems (Diagnosis) (1) Acute pyelonephritis Current Visit: Yes Status: Acute (2) Renal abscess Current Visit: Yes Status: Acute (3) Functional constipation Current Visit: Yes Status: Acute - Plan Urine culture growing ESBL E. coli. Although the organism is sensitive to Zosyn I have not seen a significant clinical response. We will switch antibiotics to IV meropenem. Blood cultures: No growth. Supportive measures with IV opioids as needed for pain, antiemetic as needed. Renal ultrasound on Saturday to follow the abscess. Continue metoprolol for tachybradycardia syndrome. Continue stool softeners and laxatives for constipation.
[2022-01-06] MEDS: Meropenem 500 MG in NA CHLORIDE 0.9% 100 ML IV SCH (16:07)
[2022-01-06] MEDS: ACETAMINOPHEN 500 MG TAB PO PRN (22:24)
[2022-01-07] MEDS: Meropenem 500 MG in NA CHLORIDE 0.9% 100 ML IV SCH ×3 (00:38→16:27)
[2022-01-07] MEDS: MORPHINE 2 MG/ML SYR IV PRN ×3 (04:25→16:27)
[2022-01-07 06:29] LABS: ALT/SGPT 31 U/L (12-78); AST/SGOT 13 U/L (15-37); Albumin 2.7 g/dL (3.4-5.0); Alkaline Phosphatase 97 U/L (45-117); Bicarbonate 26 mmol/L (21-32); Bilirubin Total 0.3 mg/dL (0.2-1.0); Glomerular Filtration Rate > 90 mL/min (=/>90); Glucose Level 84 mg/dL (74-106); Phosphorus 3.7 mg/dL (2.5-4.9); Potassium 3.9 mmol/L (3.5-5.1); Protein, Total 6.9 g/dL (6.4-8.2); Sodium Level 137 mmol/L (136-145)
[2022-01-07 06:43] LABS: BUN Blood Urea Nitrogen < 3 mg/dL (7-18)
[2022-01-07] MEDS: NA CHLORIDE 0.9% 1,000 ML IV SCH ×3 (06:49→20:48)
[2022-01-07] MEDS: HYDROCODONE/APAP 5/325 MG TAB PO PRN ×2 (07:57→18:33)
[2022-01-07] MEDS: ONDANSETRON 4 MG/2 ML VIAL IV PRN ×2 (07:57→16:27)
[2022-01-07] MEDS: SENOSIDES 8.6 MG TAB PO SCH ×2 (07:58→20:48)
[2022-01-07] MEDS: ENOXAPARIN 40 MG/0.4 ML SQ SCH (07:59)
[2022-01-07] MEDS ORDERED: POTASSIUM CL SA 10 MEQ TAB PO ONE (10:15)
--- NOTE | 2022-01-07 12:00 | P.PN ---
Subjective Date of Service: 01/07/22 Chief Complaint: Fever, Constipation No recorded fever over the last 24 hours Patient states her flank pain is better and overall she is feeling better. Physical Examination - Vital Signs Temperature: 96.4 F Blood Pressure: 123/84 Pulse: 83 Respirations: 18 Pulse Ox (%): 95 - Physical Exam General: Alert, In no apparent distress, Oriented x3 HEENT: Mucous membr. moist/pink Neck: JVD not distended Respiratory: Clear to auscultation bilaterally, Normal air movement Cardiovascular: No edema, Regular rate/rhythm, Normal S1 S2 Gastrointestinal: Normal bowel sounds, Soft and benign, Non-distended, No tenderness Musculoskeletal: No swelling Integumentary: No rashes - Studies Microbiology Data (last 24 hrs): 01/04/22 12:42 Clean Catch Urine [place] Count - Final >100,000 CFU/ML. 01/04/22 12:42 Clean Catch Urine - Final Escherichia Coli Esbl Assessment And Plan - Current Problems (Diagnosis) (1) Acute pyelonephritis Current Visit: Yes Status: Acute (2) Renal abscess Current Visit: Yes Status: Acute (3) Functional constipation Current Visit: Yes Status: Acute - Plan Urine culture growing ESBL E. coli. It appears she is responding better to IV meropenem. Blood cultures: No growth. Supportive measures with IV opioids as needed for pain, antiemetic as needed. Renal ultrasound on Saturday to follow the abscess. Continue metoprolol for tachybradycardia syndrome. Continue stool softeners and laxatives for constipation. PICC line placement for outpatient antibiotics treatment.
[2022-01-07] MEDS ORDERED: PROMETHAZINE INJ 25 MG/ML AMP IV ONE (17:59)
[2022-01-07] MEDS ORDERED: HYDROMORPHONE HCL 1 MG/ML INJ IV ONE (20:14)
[2022-01-08] MEDS: MORPHINE 2 MG/ML SYR IV PRN ×3 (00:39→12:16)
[2022-01-08] MEDS: Meropenem 500 MG in NA CHLORIDE 0.9% 100 ML IV SCH ×2 (00:39→08:09)
[2022-01-08] MEDS: HYDROCODONE/APAP 5/325 MG TAB PO PRN ×2 (01:56→10:22)
[2022-01-08] MEDS: NA CHLORIDE 0.9% 1,000 ML IV SCH ×5 (02:00→22:03)
[2022-01-08] MEDS: ONDANSETRON 4 MG/2 ML VIAL IV PRN (08:09)
[2022-01-08] MEDS: ENOXAPARIN 40 MG/0.4 ML SQ SCH (08:10)
[2022-01-08] MEDS: SENOSIDES 8.6 MG TAB PO SCH ×2 (08:10→19:56)
[2022-01-08] MEDS ORDERED: ERTAPENEM SODIUM 1 GM VIAL IVPB SCH (09:00)
[2022-01-08] MEDS ORDERED: ERTAPENEM NA 1 GM in NA CHLORIDE 0.9% 100 ML IVPB SCH ×2 (09:00→11:00)
[2022-01-08 09:49] LABS: Albumin 2.7 g/dL (3.4-5.0); Bilirubin Total 0.1 mg/dL (0.2-1.0); Potassium 3.7 mmol/L (3.5-5.1)
[2022-01-08] MEDS ORDERED: POTASSIUM CL SA 10 MEQ TAB PO ONE (10:14)
--- NOTE | 2022-01-08 11:09 | RAD REPORT ---
EXAM DESCRIPTION: US - Renal Ultrasound-Complete - 01/08/2022 10:16 am CLINICAL HISTORY: Follow up renal abscess COMPARISON: Abdomen Pelvis W Contrast dated 01/04/2022 FINDINGS: Both kidneys are normal in size, shape and echotexture. The right kidney measures 10.8 cm. Hypoechoic structure in the right lower pole of the kidney without flow is noted. No drainable fluid collection is identified by ultrasound. The left kidney measures 11.1 cm. No hydronephrosis, focal mass or perinephric fluid. The urinary bladder is incompletely distended without gross abnormality seen. IMPRESSION: Hypoechoic structure at the lower pole of the right kidney may represent sequela of rece nt pyelonephritis. The area is hypovascular but not avascular as to suggest an abscess. No hydronephr osis.
[2022-01-08] MEDS: PROMETHAZINE INJ 25 MG/ML AMP IV PRN (12:03)
--- NOTE | 2022-01-08 13:17 | RAD REPORT ---
EXAM DESCRIPTION: RAD - Chest Single View - 01/08/2022 1:04 am CLINICAL HISTORY: 6 years Female, S/P PICC insertion COMPARISON: None FINDINGS/IMPRESSION: Placement of right upper extremity PICC terminating in the proximal SVC. No focal consolidation. No pleural effusion. No pneumothorax. Left chest pacemaker. Cardiomediastinal silhouette is within normal limits. No acute osseous abnormality. Electronically signed by: Shimon Figueroa DO 01/08/2022 1:18 AM CDT Due to temporary technical issues with the PACS/Fluency reporting system, reports are being signed by the in house radiologist without review as a courtesy to ensure prompt reporting. The interpreting r adiologist is fully responsible for the content of the report.
[2022-01-08] MEDS: KETOROLAC 30 MG/ML INJ IV PRN (16:06)
--- NOTE | 2022-01-08 16:51 | P.PN ---
Subjective Date of Service: 01/08/22 Chief Complaint: Fever, Constipation Patient complaining of nausea and and not tolerating her meals. No fever for the last couple of days. P Physical Examination - Vital Signs Temperature: 97.5 F Blood Pressure: 136/81 Pulse: 73 Respirations: 18 Pulse Ox (%): 97 - Physical Exam General: Alert, In no apparent distress, Oriented x3 HEENT: Mucous membr. moist/pink Neck: Supple, JVD not distended Respiratory: Clear to auscultation bilaterally, Normal air movement Cardiovascular: No edema, Regular rate/rhythm, Normal S1 S2 Gastrointestinal: Normal bowel sounds, Soft and benign, Non-distended Musculoskeletal: No swelling Integumentary: No rashes Neurological: Normal strength at 5/5 x4 extr Assessment And Plan - Current Problems (Diagnosis) (1) Acute pyelonephritis Current Visit: Yes Status: Acute (2) Renal abscess Current Visit: Yes Status: Acute (3) Functional constipation Current Visit: Yes Status: Acute - Plan Urine culture growing ESBL E. coli. It appears she is responding better to IV meropenem. Blood cultures: No growth. No fever for several days Discontinue opioids given persistent nausea. Manage pain with NSAIDs for now. Renal ultrasound: No evidence of abscess. It shows possible sequela of pyelonephritis Continue metoprolol for tachybradycardia syndrome. Continue stool softeners and laxatives for constipation. PICC line placed for outpatient antibiotics treatment. Possible discharge in a.m. once she is able to tolerate diet.
[2022-01-08] MEDS ORDERED: MORPHINE 2 MG/ML SYR IV ONE (18:57)
[2022-01-08] MEDS: ACETAMINOPHEN 500 MG TAB PO PRN (19:45)
[2022-01-08 23:01] VITALS: O2SAT 98
[2022-01-09] MEDS: PROMETHAZINE INJ 25 MG/ML AMP IV PRN (00:08)
[2022-01-09] MEDS: MORPHINE 2 MG/ML SYR IV PRN ×2 (00:09→06:52)
[2022-01-09 04:23] LABS: Potassium 3.7 mmol/L (3.5-5.1)
[2022-01-09] MEDS: NA CHLORIDE 0.9% 1,000 ML IV SCH (05:13)
--- NOTE | 2022-01-09 06:43 | P.PN ---
Date of Service: 01/09/22
[2022-01-09] MEDS: ENOXAPARIN 40 MG/0.4 ML SQ SCH (08:35)
[2022-01-09] MEDS: SENOSIDES 8.6 MG TAB PO SCH (08:35)
[2022-01-09] MEDS ORDERED: POTASSIUM CL SA 10 MEQ TAB PO ONE (09:00)
[2022-01-09 10:10] VITALS: BP 127/72; TEMP 97.1
[2022-01-09] MEDS: ONDANSETRON 4 MG/2 ML VIAL IV PRN (11:21)
[2022-01-09] MEDS: KETOROLAC 30 MG/ML INJ IV PRN (11:21)
--- NOTE | 2022-01-09 16:52 | P.DS ---
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 Presented to ED due to 2 weeks of constipation and abdominal/flank pain. Associated with fever, nausea, chills, and rigors. CT abd/pelvis demonstratted bilateral pyelonephritis with possible early right renal abscess. Patient noted to be septic in ED and admitted for further management. Hospital Course: Patient was found to have acute pyelonephritis. Urine culture grew ESBL e.coli. A PICC line was placed for IV antibiotics. She had gradual improvement of her symptoms. On day of discharge, pain was much more manageable and she tolerated breakfast without nausea/vomiting. She reported feeling much better and ready to go home. Discharged to continue 7 more days of IV invanz for her infection. There was a small area on right inferior renal pole noted on CT for possible early /small abscess. A repeat Ultrasound done a few days later noted hypoechoic area, felt to represenet sequela of recent pyelonephritis. Area was hypovascular but not avascular, which makes abscess very unlikely. Follow up with PCP within 1 week. Consider repeat Ultrasound in a few months Vital Signs/Physical Exam: Temp Pulse Resp BP Pulse Ox 97.1 F 78 16 127/72 98 01/09/22 08:00 01/09/22 08:00 01/09/22 08:00 01/09/22 08:00 01/09/22 08:00 General: Alert, In no apparent distress, Oriented x3 HEENT: Sclerae nonicteric Neck: Supple, No LAD Respiratory: Clear to auscultation bilaterally, Normal air movement Cardiovascular: No edema, Regular rate/rhythm Gastrointestinal: Soft and benign, Non-distended, No tenderness Musculoskeletal: No swelling Integumentary: No significant lesion, No tenderness/swelling Neurological: Normal speech, Normal affect Laboratory Data at Discharge: WBC 10.3 K/uL (4.3-10.9) 01/06/22 03:32 Hgb 11.1 g/dL (12.0-15.0) L 01/06/22 03:32 Hct 32.2 % (36.0-45.0) L 01/06/22 03:32 Plt Count 335 K/uL (152-406) 01/06/22 03:32 Sodium 140 mmol/L (136-145) 01/09/22 03:45 Potassium 3.7 mmol/L (3.5-5.1) 01/09/22 03:45 BUN 4 mg/dL (7-18) L 01/09/22 03:45 Creatinine 0.70 mg/dL (0.55-1.3) 01/09/22 03:45 Glucose 92 mg/dL (74-106) 01/09/22 03:45 Phosphorus 3.7 mg/dL (2.5-4.9) D 01/07/22 05:44 Magnesium 2.0 mg/dL (1.8-2.4) 01/09/22 03:45 Total Bilirubin 0.1 mg/dL (0.2-1.0) L 01/08/22 09:16 AST 12 U/L (15-37) L 01/08/22 09:16 ALT 29 U/L (12-78) 01/08/22 09:16 Alkaline Phosphatase 83 U/L (45-117) 01/08/22 09:16 Lipase 52 U/L (73-393) L 01/04/22 12:26 Home Medications: Metoprolol Tartrate 25 mg PO DAILY PRN 01/04/22 Midodrine HCl 5 mg PO BID 01/04/22 Ondansetron [Zofran] 4 mg PO Q6H PRN #12 tab 01/09/22 Tramadol HCl [Ultram] 50 mg PO Q8H PRN #10 tablet 01/09/22 New Medications: Tramadol HCl [Ultram] 50 mg PO Q8H PRN #10 tablet PRN Reason: Pain Scale 5-7 (Moderate) Ondansetron [Zofran] 4 mg PO Q6H PRN #12 tab PRN Reason: Nausea / Vomiting Diet: Regular Activity: Ad boby Time spent managing pt's care (in minutes): 40
== END 2022-01-09 12:00 | disposition home or self-care (01) | DRG 871 ==
LOC: ER 11:57 → ERHOLD 15:36 → 2ND 17:42
PROVIDERS: ADMIT Internal Medicine; ATTEND Internal Medicine
PROC: 02HV33Z Insertion of Infusion Device into Superior Vena Cava, Percutaneous Approach (ICD-10-PCS; principal; 2022-01-07)
PROC: 3E04329 Introduction of Other Anti-infective into Central Vein, Percutaneous Approach (ICD-10-PCS; 2022-01-07)
DX: A41.9 Sepsis, unspecified organism (principal); N15.1 Renal and perinephric abscess; N10 Acute pyelonephritis; Z16.12 Extended spectrum beta lactamase (ESBL) resistance; B96.20 Unspecified Escherichia coli [E. coli] as the cause of diseases classified elsewhere; K59.04 Chronic idiopathic constipation; I49.5 Sick sinus syndrome; Z95.0 Presence of cardiac pacemaker; Z20.822 Contact with and (suspected) exposure to COVID-19
CPT/HCPCS: 36415; 36569; 71045; 74177; 76770; 80048; 80053; 81003; 81015; 81025; 82805; 83605; 83690; 83735; 84100; 84145; 85025; 87040; 87077; 87086; 87088; 87186; 94760; 96374; 96375; 99285; J1170; J1335; J1650; J2270; J2405; J2543; J2550; J3010; J3490; J7030; Q9967; U0003

== ENCOUNTER 2023-02-12 23:28 | Emergency (ER) | payer OTHER, SELFPAY ==
--- OUTSIDE RECORDS SUMMARY | 2023-02-12 23:34 | XMS REPORT | Continuity of Care Document ---
:1995 Author Organization [facility] Address [address] [place] [address] Care Team Providers Name Role Phone Asked, No Pcp Primary Care Physician Unavailable Rojas Pichardo Attending Clinician ROJAS METZGER Attending Clinician Unavailable Symone Little MD Attending Clinician SYMONE LITTLE Attending Clinician Unavailable ROJAS METZGER Admitting Clinician Unavailable Problems Condition Condition Condition [...] Drug Active [facility] ALLERGIE Class ity of [facility] Family History Family Member Diagnosis Comments Start Date Stop Date Source Natural father Heart disease [facility] Maternal aunt Heart disease [facility] Maternal grandmother Heart disease [facility] [place] Natural mother Heart disease [facility] Paternal grandmother Heart disease [facility] [place] Social History Social Habit Start Date Stop Date Quantity Comments Source [facility] History of tobacco Occasional [facility] tobacco sm[facility] Exposure to 2023-01-12 2023-01-22 Not sure University of SARS-CoV-2 (event) 00:00:00 16:24:00 [facility] Alcohol intake 2019-05-15 2019-05-15 Current drinker [facility] 00:00:00 00:00:00 of alcohol Hospital (finding) Tobacco use and 2019-05-15 2019-05-15 Never used [facility] exposure 00:00:00 00:00:00 Hospital History of Social 2019-05-11 2019-05-[address] function 00:00:00 00:00:00 Hospital Tobacco Comment 2019-05-11 2019-05-11 social only [facility] 00:00:00 00:00:00 Hospital Alcohol Comment 2019-05-11 2019-05-11 social [facility] 00:00:00 00:00:00 Hospital Sex Assigned At [birth year] [facility] 00:00:00 00:00:00 Hospital Smoking Status Start Date Stop Date Source Tobacco smoking consumption [facility] Current some day smoker 2019-05-15 00:00:00 [facility] Medications Ordered Filled Start Stop Current Ordering Indication Dosage Frequency Signature Comments Components Source Medication Medication Date Date Medication? Clinician (SIG) Name Name ondansetron 2022- No 4mg 4 mg, Slow Univers (ZOFRAN 01-23-24 IV Push, ity of (PF)) 02:30: 02:30 ONCE, 1 [place] injection 4 00 :00 dose, On Medi brianna mg [facility] 01/22/23 at 2130, CRYSTAL iopamidol 2022- No [id number] 75mL 75 mL, Univers (ISOVUE 01-23-24 Intravenou ity o f 370-500 mL) 01:19: 01:30 s, ONCE, 1 [place] injection 00 :00 dose, On Medica l 75 mL [facility] 01/22/23 at 2030, Routine NaCl 0.9% 2022- No 1000mL at 999 Uni vers (NS) IV - 05-24 mL/hr, ity of [place] 00:52[place] 02[place],000 mL [place] :00 s, ONCE, 1 Medic al dose, On Branch [facility] 01/22/23 at 2000, CRYSTAL NaCl 0.9% 0 2022- No 1000mL at 999 Uni vers (NS) IV - 05-24 mL/hr, ity of infusion 22:45: 01:24 [place] 1,000 mL 00 :00 s, ONCE, 1 Medic al dose, On Branch [facility] 01/22/23 at 1745, CRYSTAL acetaminoph 2022-0 202- No 650mg 650 mg, U nivers en 01-22 Oral, ity of (TYLENOL) 22:44: 22:53 [place]CE[place] 650 [place] :00 dose, On Medic al mg [facility] 01/22/23 at 1745, CRYSTAL ondansetron 0 2022- No 4mg 4 mg, Slow Univers (ZOFRAN 01-22 IV Push, ity of (PF)) 22:30: 22:53 ONCE, 1 [place] injection 4 00 :00 dose, On Medi brianna mg [facility] 01/22/23 at 1730, CRYSTAL sodium 0 Yes 5mL 5 mL, Univers chloride 01-22 Intravenou ity o f (NS) 21:35: s, PRN, [place] injection 5 49 Starting Medi brianna mL on [facility] 01/22/23 at 1635, Until Discontinu ed, Routine, IV line flushing midodrine Yes Take by [facility] [place] [facility] rs HCl 5-23 mouth. ity of (MIDODRINE 21:16: [place] ORAL) [facility] METOPROLOL Yes Take by [facility] ers SUCCINATE 5-23 mouth. ity of ORAL 21:16: [place] 09 [facility] ondansetron 0 Yes [id number] 4mg Take 1 Univers 4 mg 5-23 tablet by ity of disintegrat 00:00: mouth [place] ing tablet 00 every 8 Medica l (eight) Branch hours as needed for Nausea and Vomiting (N/V). dicyclomine Yes [id number] 10mg Take 1 Univers 10 mg 5-23 capsule by ity of capsule 00:00: mouth 3 [place] 00 (three) Medical times Branch daily as needed for Abdominal pain. buprenorphi Yes [id number] 1{film} QD Place 1 Methodi ne-naloxone 9-[address] (SUBOXONE) 15:11: the tongue H ospita 2-0.5 mg 16 daily l film .Acute Pain. buprenorphi 2018-0 Yes [id number] 1{film} QD Place 1 Methodi ne-naloxone 9-[address] (SUBOXONE) 10:11: the tongue H ospita 2-0.5 mg 16 daily l film .Acute Pain. Vital Signs Vital Name Observation Time Observation Value Comments Source Systolic blood 2023-01-23 02:00:00 115 mm[Hg] [facility] Diastolic blood 2023-01-23 02:00:00 64 mm[Hg] [facility] Heart rate 2023-01-23 02:00:00 84 /min [facility] Respiratory rate 2023-01-23 02:00:00 19 /min [facility] Oxygen saturation in 2023-01-23 02:00:00 95 /min [facility] Arterial blood by [facility] Pulse oximetry [place] Body temperature 2023-01-23 01:15:00 38.72 [place] [facility] Body height 2023-01-22 21:25:00 160 cm [facility] Body weight 2023-01-22 21:25:00 82.555 kg [facility] BMI 2023-01-22 21:25:00 32.24 kg/m2 [facility] Procedures Procedure Date / Time Performed Performing Clinician [facility] e POCT TEST 2023-01-22 22:05:00 Rojas Metzger [facility] LIPASE 2023-01-22 22:01:00 Yassine [facility] TROPONIN I 2023-01-22 22:01:00 Yassine [facility] COMP. METABOLIC PANEL 2023-01-22 22:01:00 [facility] ([id number]) [facility] CBC WITH DIFF 2023-01-22 22:01:00 Yassine [facility] URINALYSIS 2023-01-22 22:01:00 Yassine [facility] COVID-19 (ID NOW RAPID 2023-01-22 22:01:00 [facility] TESTING) [facility] [place] Plan of Care Planned Activity Planned Date Details Comments Source Future Scheduled 2022-12-05 COVID-[address] [facility] Test 09:01:13 (#1) [code = COVID-19 VACCINE (#1)] Future Scheduled 2022-12-05 Scre[facility] Test 09:01:13 malignant neoplasm of cervix (procedure) [code = 659262212] Future Scheduled 2022-12-05 INFLUENZA VACCINE [facility] Test 09:01:13 [code = INFLUENZA VACCINE] Future Scheduled [facility] Test screening (procedure) [code = 398609572] Future Scheduled [facility] Test malignant neoplasm of cervix (procedure) [code = 241014573] Future Scheduled INFLUENZA VACCINE [facility] Test [code = INFLUENZA VACCINE] Future Scheduled COVID-[address] [facility] Test (1) [code = COVID-19 VACCINE (1)] Encounters Start End Encounter Admission Attending Care Care Encounter Source Date/Time Date/Time Type Type Clinicians Facility Department ID 2023-01-22 2023-01-22 Emergency [facility] [id number] Univers 16:27:00 21:48:[id number] [facility] [id number] [facility] [id number] [address] 2023-01-22 2023-01-22 Emergency X [facility] ERT [id number] Univers 16:27:00 21:48:00 [facility] 2019-11-11 2019-11-11 Emergency [facility] [id number] 17:21:24 17:22:00 [facility] [id number] [place] [id number] [place] [id number] [facility] 2019-11-11 2019-11-11 Emergency X [facility] ERT [id number] Univers 16:50:00 16:50:00 [facility] 2017-12-22 2017-12-23 Outpatient [facility] [id number] [place] 00:00:00 00:00:00 [facility] Results Test Description Test Time Test Comments Results Result Comments Source TROPONIN I 2023-01-23 02:01:58 Test Item Value Reference Range Interpretation Comme nts TROPONIN I (test code = 0059769100) <=0.034 SUHAIL (test code = SUHAIL) Reference (Normal) Range (defined by the 99th percentile reference limit): <= 0.034 ng/mL Note: Cardiac troponin begins to rise 3-4 hours after the onset of ischemia. Repeat in 4-6 hours if the sample was drawn within 3-4 hours of the onset of the symptom and found normal. Diagnosis of myocardial injury is made with acute changes in cTn concentrations with at least one serial sample above the 99th percentile upper reference limit (URL), taken together with the patient's clinical presentation. Biotin has been reported to cause a negative bias, interpret results relative to patient's use of biotin. Lab Interpretation (test code = Normal 85731-7) [facility] [id number] 23:37:19 Test Item Value Reference Range Interpretation Comments LIPASE (test code = 8379529840) 35 U/L 0-220 Lab Interpretation (test code = Normal 92060-0) [facility] Metabolic [id number] 22:46:16 Test Item Value Reference Range Interpretation Comments NA (test code = 134 mmol/L 135-145 L 6424953393) K (test code = 4.1 mmol/L 3.5-5.0 8296568856) CL (test code = 96 mmol/L 98-108 L 3291325190) CO2 TOTAL (test code = 30 mmol/L 23-31 2809191562) AGAP (test code = 8 2-16 6268444082) BUN (test code = 12 mg/dL 7-23 7729447146) GLUCOSE (test code = 109 mg/dL 70-110 9883123624) CREATININE (test code = 0.78 mg/dL 0.50-1.04 4136281766) TOTAL BILI (test code = 0.6 mg/dL 0.1-1.8 6309985344) CALCIUM (test code = 9.0 mg/dL 8.6-10.6 0856360842) T PROTEIN (test code = 6.4 g/dL 6.3-8.2 6388962848) ALBUMIN (test code = 3.9 g/dL 3.5-5.0 2422671887) ALK PHOS (test code = 68 U/L 34-122 8717932201) ALTv (test code = 19 U/L 5-35 1742-6) AST(SGOT) (test code = 21 U/L 13-40 0411289170) eGFR (test code = 87.3 mL/min/1.73m2 0686504412) SUHAIL (test code = SUHAIL) Association of Glomerular Filtration Rate (GFR) and Staging of Kidney Disease* + --+ --+ ------+| GFR (mL/min/1.73 m2) ?| With Kidney Damage ?| ?Without Kidney Damage+ --------+ --------+ +| ?>90 ?| ?Stage one ?| ? Normal ?+ ---+ ---+ -------+| ?60-89 ?| ?Stage two ?| ? Decreased GFR ? + --+ --+ ------+| ?30-59 ?| ?Stage three ?| ? Stage three ? + --+ --+ ------+| ?15-29 ?| ?Stage four ? | ? Stage four ?+ ---+ ---+ -------+| ?<15 (or dialysis) ? ?| ?Stage five ? | ? Stage five ?+ ---+ ---+ -------+ *Each stage assumes the associated GFR level has been in effect for at least three months. ?Stages 1 to 5, with or without kidney disease, indicate chronic kidney disease. Notes: Determination of stages one and two (with eGFR >59mL/min/1.73 m2) requires estimation of kidney damage for at least three months as defined by structural or functional abnormalities of the kidney, manifested by either:Pathological abnormalities or Markers of kidney damage (including abnormalities in the composition of the blood or urine or abnormalities in imaging tests). Lab Interpretation Abnormal (test code = 00450-2) [facility] with [id number] 22:36:18 Test Item Value Reference Range Interpretation Comments WBC (test code = 8.06 See_Comment [Automated 9690-2) message] The sy stem which generated this result transmitted reference range : 4.30 - 11.10 10*3/?L. The reference range was not used to interpret this result as normal/abnormal . RBC (test code = 4.76 See_Comment [Automated 789-8) message] The sy stem which generated this result transmitted reference range : 3.93 - 5.25 10*6/?L. The reference range was not used to interpret this result as normal/abnormal . HGB (test code = 13.6 g/dL 11.6-15.0 718-7) HCT (test code = 39.8 % 35.7-45.2 4544-3) MCV (test code = 83.6 fL 80.6-95.5 787-2) MCH (test code = 28.6 pg 25.9-32.8 785-6) MCHC (test code = 34.2 g/dL 31.6-35.1 786-4) RDW-SD (test code = 38.4 fL 39.0-49.9 L 69557-1) RDW-CV (test code = 12.6 % 12.0-15.5 788-0) PLT (test code = 224 See_Comment [Automated 777-3) message] The sy stem which generated this result transmitted reference range : 166 - 358 10*3/ ?L. The reference r yoav was not used to interpret this result as normal/abnormal . MPV (test code = 9.5 fL 9.5-12.9 16170-7) NRBC/100 WBC (test 0.0 See_Comment [Automat ed code = 3098207234) message] The system which generated this result transmitted reference range : 0.0 - 10.0 /100 WBCs. The refer ence range was not u sed to interpret th is result as normal/abnormal . NRBC x10^3 (test code See_Comment [Auto mated = 5532200596) message] The s ystem which generated this result transmitted reference range : 10*3/?L. The reference range was not used to interpret this result as normal/abnormal . GRAN MAT (NEUT) % 80.2 % (test code = 770-8) IMM GRAN % (test code 0.20 % = 4350725892) LYMPH % (test code = 7.4 % 736-9) MONO % (test code = 6.0 % 5905-5) EOS % (test code = 6.1 % 713-8) BASO % (test code = 0.1 % 706-2) GRAN MAT x10^3(ANC) 6.46 10*3/uL 1.88-7.09 (test code = 3722522074) IMM GRAN x10^3 (test 0.00-0.06 code = 4001977816) LYMPH x10^3 (test code 0.60 10*3/uL 1.32-3.29 L = 731-0) MONO x10^3 (test code 0.48 10*3/uL 0.33-0.92 = 742-7) EOS x10^3 (test code = 0.49 10*3/uL 0.03-0.39 H 711-2) BASO x10^3 (test code 0.01-0.07 = 704-7) Lab Interpretation Abnormal (test code = 84774-5) [facility] [id number] 22:05:00 Test Item Value Reference Range Interpretation Comments POCT PREG (test code = 1605) Negative On board controls acceptable with Yes C Line (test code = 3574) POCT PREG LOT # (test code = 3575) [id number] POCT PREG TEST DATE (test 04/09/2024 code = 3576) Lab Interpretation (test code = Normal 34938-9) [facility]"
[2023-02-13] MEDS ORDERED: METHYLPREDNISOLONE 125 MG INJ ONE (00:03)
[2023-02-13 00:38] LABS: Absolute Lymphocytes (CBC) 3.1 K/uL (0.7-4.9); Hematocrit 31.8 % (36.0-45.0); Lymphocytes % 47.5 % (15.3-44.8); MCV 82.8 fL (80-100); MPV 7.4 fL (7.6-11.3); RBC Red Blood Cell Count 3.84 M/uL (3.86-4.86)
[2023-02-13 00:49] LABS: Potassium 3.1 mEq/L (3.5-5.1); Troponin High Sensitivity 3.4 pg/mL (<58.9)
[2023-02-13 00:51] LABS: SARS-CoV-2 Antigen Rapid Res Negative (Negative)
[2023-02-13] MEDS ORDERED: POTASSIUM CL SA 10 MEQ TAB PO ONE (01:07)
--- NOTE | 2023-02-13 01:38 | EDPHYS ---
Physician Documentation [facility] Name: Lara Palacio Age: 27 yrs Sex: Female : 1995 Arrival Date: 02/12/2023 Time: 23:28 Bed 17 Private MD: ED Physician Ethan Vazquez HPI: 02/13 01:24 This 27 yrs old Female presents to ER via Ambulatory with complaints of Chest Pain, kb Breathing Difficulty. 01:24 The patient or guardian reports cough, that is intermittent, described as moderate. kb Onset: The symptoms/episode began/occurred last week. Severity of symptoms: At their worst the symptoms were mild, moderate, in the emergency department the symptoms are unchanged. Modifying factors: The symptoms are alleviated by nothing, the symptoms are aggravated by nothing. Associated signs and symptoms: Pertinent positives: chest pain. The patient has not experienced similar symptoms in the past. The patient has not recently seen a physician. Pt reports cough, chest congestion, chest pain and palpitations. Reports cough and congestion started one week ago and pain started yesterday. Historical: - PMHx: 02/12 23:45 BRADYCARDIA; Pacemaker; POTS; kd3 - PSHx: 23:45 ablation; section; pacemaker; kd3 - Immunization history:: Adult Immunizations up to date. - Social history:: Smoking status: unknown. ROS: 02/13 01:23 Constitutional: Negative for fever, chills, and weight loss. kb Cardiovascular: Positive for chest pain, palpitations. Respiratory: Positive for cough. All other systems are negative. Exam: 01:22 Constitutional: This is a well developed, well nourished patient who is awake, alert, kb and in no acute distress. Head/Face: Normocephalic, atraumatic. ENT: Moist Mucous membranes Cardiovascular: Regular rate and rhythm with a normal S1 and S2. No gallops, murmurs, or rubs. No pulse deficits. Respiratory: Respirations even and unlabored. No increased work of breathing. Talking in full sentences Abdomen/GI: Soft, non-tender. No distention Skin: Warm, dry with normal turgor. Normal color. MS/ Extremity: Pulses equal, no cyanosis. Neurovascular intact. Full, normal range of motion. Neuro: Awake and alert, GCS 15, oriented to person, place, time, and situation. Moves all extremities. Normal gait. 01:22 ECG was reviewed by the Attending Physician. Vital Signs: 02/12 23:43 BP 122 / 58; Pulse 62; Resp 19; Temp 97(TE); Pulse Ox 99% on R/A; Weight 93.44 kg; kd3 02/13 00:00 BP 108 / 66; Pulse 58; Resp 14; Pulse Ox 99% on R/A; pf1 01:00 BP 120 / 76; Pulse 54; Resp 14; Pulse Ox 98% on R/A; pf1 01:40 BP 116 / 56; Pulse 56; Resp 16; Pulse Ox 98% on R/A; pf1 MDM: 02/12 23:37 Patient medically screened. kb 02/13 01:23 Data reviewed: vital signs, nurses notes. kb 01:23 Differential diagnosis: flu, covid, pneumonia. kb 01:37 Counseling: I had a detailed discussion with the patient and/or guardian regarding: the kb historical points, exam findings, and any diagnostic results supporting the discharge/admit diagnosis, lab results, radiology results, the need for outpatient follow up, a family practitioner, to return to the emergency department if symptoms worsen or persist or if there are any questions or concerns that arise at home. 02/12 23:41 Order name: Basic Metabolic Panel; Complete Time: 00:49 kb 02/12 23:41 Order name: CBC with Diff; Complete Time: 00:50 kb 02/12 23:41 Order name: Troponin HS; Complete Time: 00:49 kb 02/12 23:41 Order name: Flu; Complete Time: 00:52 kb 02/12 23:41 Order name: SARS RAPID; Complete Time: 00:52 kb 02/12 23:41 Order name: XRAY Chest (1 view) kb 02/12 23:41 Order name: EKG; Complete Time: 23:42 kb 02/12 23:41 Order name: Cardiac monitoring; Complete Time: 23:52 kb 02/12 23:41 Order name: EKG - Nurse/Tech; Complete Time: 23:52 kb 02/12 23:41 Order name: IV Saline Lock; Complete Time: 00:13 kb 02/12 23:41 Order name: Labs collected and sent; Complete Time: 00:13 kb 02/12 23:41 Order name: O2 Per Protocol; Complete Time: 23:53 kb 02/12 23:41 Order name: O2 Sat Monitoring; Complete Time: 23:53 kb EC:22 Rate is 57 beats/min. Rhythm is regular. QRS [place] is Normal. NE interval is normal at kb 170 msec. QRS interval is normal at 96 msec. QT interval is normal at 441 msec. Administered Medications: 00:10 Drug: MethylPrednisoLONE IVP 125 mg Route: IVP; Site: right wrist; pf1 01:07 Follow up: Response: No adverse reaction; Marked relief of symptoms pf1 01:05 Drug: Potassium Chloride PO 40 mEq Route: PO; pf1 01:38 Follow up: Response: No adverse reaction; Marked relief of symptoms pf1 Disposition: 02:07 Co-signature as Attending Physician, Ethan Vazquez MD I reviewed the patient's care rt provided by the Advanced Practice Provider and agree with the diagnosis and treatment plan. Disposition Summary: 02/13/23 01:37 Discharge Ordered Location: Home kb Condition: Stable kb Diagnosis - Acute upper respiratory infection, unspecified kb Followup: kb - With: Emergency Department - When: As needed - Reason: Worsening of condition Followup: kb - With: Private Physician - When: 2 - 3 days - Reason: Recheck today's complaints, Continuance of care, Re-evaluation by your physician Discharge Instructions: - Discharge Summary Sheet kb - Upper Respiratory Infection, Adult, [id number] kb - Viral Respiratory Infection, [id number] kb Forms: - Medication Reconciliation Form kb - Thank You Letter kb - Antibiotic Education kb - Prescription Opioid Use kb Signatures: Dispatcher [employer] KATIECO Keesha Campbell, ROSALINA FUNEZ-Renate Fierro, RN RN kd3 Ethan Vazquez MD MD rt Janina Esteves, LORNE RN pf1
--- NOTE | 2023-02-13 01:38 | ER ---
Nurse's Notes [facility] Name: Lara Palacio Age: 27 yrs Sex: Female : 1995 Arrival Date: 02/12/2023 Time: 23:28 Bed 17 Private MD: Diagnosis: Acute upper respiratory infection, unspecified Presentation: 02/12 23:43 Chief complaint: Patient states: I have been sick for about a week and i started having kd3 chest pains since yesterday. It hurts more when i breath in and move but it also feels very hard to take a deep breath in. I did an albuterol treatment before i came in. Coronavirus screen: Vaccine status: Patient reports being unvaccinated. Ebola Screen: No symptoms or risks identified at this time. Initial Sepsis Screen: Does the patient meet any 2 criteria? No. Patient's initial sepsis screen is negative. Does the patient have a suspected source of infection? No. Patient's initial sepsis screen is negative. Risk Assessment: Do you want to hurt yourself or someone else? Patient reports no desire to harm self or others. Onset of symptoms was February 12, 2023. 23:43 Method Of Arrival: Ambulatory kd3 23:43 Acuity: DEEPA 3 kd3 Triage Assessment: 23:45 General: Appears uncomfortable, Behavior is calm, cooperative. Pain: Complains of pain kd3 in chest. Cardiovascular: Patient's skin is warm and dry. Historical: - PMHx: 23:45 BRADYCARDIA; Pacemaker; POTS; kd3 - PSHx: 23:45 ablation; section; pacemaker; kd3 - Immunization history:: Adult Immunizations up to date. - Social history:: Smoking status: unknown. Screenin/14 00:16 [facility] ED Fall Risk Assessment (Adult) History of falling in the last 3 months, pf1 including since admission No falls in past 3 months (0 pts) Confusion or Disorientation No (0 pts) Intoxicated or Sedated No (0 pts) Impaired Gait No (0 pts) Mobility Assist Device Used No (0 pt) Altered Elimination No (0 pt) Score/Fall Risk Level 0 - 2 = Low Risk Oriented to surroundings, Maintained a safe environment, Educated pt \T\ family on fall prevention, incl call for assistance when getting out of bed, Assessed \T\ reinforced patient's understanding of fall precautions, Provided non-skid footwear, Hourly rounding (assess needs \T\ fall precautionary measures) done, Used ambulatory aids as needed (educated on \T\ assisted with), Used gait belt as appropriate. Abuse screen: Denies threats or abuse. Nutritional screening: No deficits noted. Tuberculosis screening: No symptoms or risk factors identified. Assessment: 02/12 22:45 General: Appears in no apparent distress. comfortable, obese, well groomed, well pf1 developed, Behavior is calm, cooperative, appropriate for age, quiet. 22:45 Pain: Complains of pain in chest Pain currently is 5 out of 10 on a pain scale. Pain pf1 began 1 day ago. Neuro: No deficits noted. Level of Consciousness is awake, alert, obeys commands, Oriented to person, place, time, situation. Cardiovascular: Capillary refill < 3 seconds Patient's skin is warm and dry. Chest pain quality is tightness. Respiratory: No deficits noted. Airway is patent Trachea Respiratory effort is even, unlabored, Respiratory pattern is regular, symmetrical. GI: No deficits noted. No signs and/or symptoms were reported involving the gastrointestinal system. Abdomen is round non-distended. : No deficits noted. No signs and/or symptoms were reported regarding the genitourinary system. EENT: No signs and/or symptoms were reported regarding the EENT system. Derm: No deficits noted. No signs and/or symptoms reported regarding the dermatologic system. Musculoskeletal: No deficits noted. No signs and/or symptoms reported regarding the musculoskeletal system. Circulation, motion, and sensation intact. Capillary refill < 3 seconds. 02/13 00:00 Reassessment: Patient appears in no apparent distress at this time. Patient and/or pf1 family updated on plan of care and expected duration. Pain level reassessed. Patient is alert, oriented x 3, equal unlabored respirations, skin warm/dry/pink. Patient states feeling better. Patient states symptoms have improved. 01:00 Reassessment: Patient appears in no apparent distress at this time. Patient and/or pf1 family updated on plan of care and expected duration. Pain level reassessed. Patient is alert, oriented x 3, equal unlabored respirations, skin warm/dry/pink. Patient states feeling better. Patient states symptoms have improved. Patient sleeping at this time. Continue monitoring patient. Vital Signs: 02/12 23:43 BP 122 / 58; Pulse 62; Resp 19; Temp 97(TE); Pulse Ox 99% on R/A; Weight 93.44 kg; kd3 02/13 00:00 BP 108 / 66; Pulse 58; Resp 14; Pulse Ox 99% on R/A; pf1 01:00 BP 120 / 76; Pulse 54; Resp 14; Pulse Ox 98% on R/A; pf1 01:40 BP 116 / 56; Pulse 56; Resp 16; Pulse Ox 98% on R/A; pf1 ED Course: 02/12 23:34 Patient arrived in ED. ja2 23:36 Keesha Campbell FNP-C [facility] kb 23:36 Ethan Vazquez MD is Attending Physician. kb 23:45 Triage completed. kd3 23:45 Arm band placed on right wrist. kd3 23:45 Client placed on continuous cardiac and pulse oximetry monitoring. NIBP monitoring pf1 applied. display screen fabricator on. 23:45 Patient has correct armband on for positive identification. Placed in gown. Bed in low pf1 position. Call light in reach. 02/13 00:05 No provider procedures requiring assistance completed. Inserted saline lock: 22 gauge pf1 in right wrist, using aseptic technique. Blood collected. 00:05 Patient maintains SpO2 saturation greater than 95% on room air. pf1 00:12 Janina Esteves, RN is Primary Nurse. pf1 00:13 SARS RAPID Sent. pf1 00:13 Flu Sent. pf1 00:13 Basic Metabolic Panel Sent. pf1 00:13 CBC with Diff Sent. pf1 00:13 Troponin HS Sent. pf1 01:15 XRAY Chest (1 view) In Process Unspecified. EDMS 01:47 IV discontinued, intact, bleeding controlled, No redness/swelling at site. Pressure pf1 dressing applied. Administered Medications: 00:10 Drug: MethylPrednisoLONE IVP 125 mg Route: IVP; Site: right wrist; pf1 01:07 Follow up: Response: No adverse reaction; Marked relief of symptoms pf1 01:05 Drug: Potassium Chloride PO 40 mEq Route: PO; pf1 01:38 Follow up: Response: No adverse reaction; Marked relief of symptoms pf1 Medication: 02/12 23:45 VIS not applicable for this client. pf1 Outcome: 02/13 01:37 Discharge ordered by MD. diggs 01:47 Discharged to home ambulatory. pf1 01:47 Condition: improved 01:47 Discharge instructions given to patient, Instructed on discharge instructions, follow up and referral plans. Demonstrated understanding of instructions, follow-up care. 01:48 Patient left the ED. pf1 Signatures: Dispatcher [employer] EDMD Keesha Campbell, DOUBLE END TENONER OPERATOR-C DOUBLE END TENONER OPERATOR-Sindi Walker2 Renate Padgett RN RN kd3 Janina Esteves RN RN pf1
[2023-02-13 01:56] VITALS: TEMP 97
[2023-02-13 02:00] VITALS: O2SAT 98
[2023-02-13 02:01] VITALS: BP 116/56
--- NOTE | 2023-02-13 08:18 | EKG ---
Test Date: 2023-02-12 Test Time: 23:47:21 Warp Yarn Sorter: MIRIAM MEASUREMENT RESULTS: Intervals: Rate: 57 TN: 170 QRSD: 96 QT: 454 QTc: 441 [place]: P: 24 TN: 170 QRS: 29 T: 1 INTERPRETIVE STATEMENTS: Electronic atrial pacemaker Compared to ECG 02/28/2021 11:58:20 Sinus tachycardia no longer present Electronically Signed On 02-13-23 08:17:21 CDT by Ammon Villa
--- NOTE | 2023-02-13 12:38 | RAD REPORT ---
EXAM DESCRIPTION: RAD - Chest Single View - 02/13/2023 1:14 am CLINICAL HISTORY: The patient is 27 years old and is Female; CHEST PAIN TECHNIQUE: Frontal view of the chest. COMPARISON: No relevant prior studies available. FINDINGS: Lungs: Unremarkable. No consolidation. Pleural space: Unremarkable. No pneumothorax. Heart: Unremarkable. Mediastinum: Unremarkable. Bones/joints: Unremarkable. Tubes, lines and devices: Left-sided pacemaker. IMPRESSION: No acute findings in the chest. Electronically signed by: Harish Flanagan MD 02/13/2023 2:14 AM CDT Due to temporary technical issues with the PACS/Fluency reporting system, reports are being signed by the in house radiologist without review as a courtesy to ensure prompt reporting. The interpreting r adiologist is fully responsible for the content of the report.
== END 2023-02-13 01:48 | disposition home or self-care (01) ==
LOC: ER 23:28
DX: J06.9 Acute upper respiratory infection, unspecified (principal); R07.9 Chest pain, unspecified; Z20.822 Contact with and (suspected) exposure to COVID-19; Z95.0 Presence of cardiac pacemaker
CPT/HCPCS: 36415; 71045; 80048; 84484; 85025; 87804; 87811; 93005; 96374; 99285

== ENCOUNTER → 2023-10-01 | Emergency (ER) | payer SELFPAY ==
[~2023-10-01] MED LIST: CEFTRIAXONE 1000 MG/VIAL ONE; METOCLOPRAMIDE 10 MG/2mL INJ ONE; NA CHLORIDE 0.9% 1,000 ML ONE; NA CHLORIDE 0.9% 250 ML ONE; NA CHLORIDE 0.9% 50 ML ONE; ONDANSETRON 4 MG/2 ML VIAL ONE; VANCOMYCIN 1 GM/VIAL ONE
[2023-10-01 04:23] LABS: Absolute Lymphocytes (CBC) 2.7 K/uL (0.7-4.9); Hematocrit 33.8 % (36.0-45.0); Lymphocytes % 31.4 % (15.3-44.8); MCV 83.6 fL (80-100); MPV 7.2 fL (7.6-11.3); Platelets 369 thou/uL (152-406); RBC Red Blood Cell Count 4.05 M/uL (3.86-4.86)
[2023-10-01 04:24] LABS: Protime INR 1.04
[2023-10-01 04:59] LABS: ALT/SGPT 15 U/L (13-56); AST/SGOT 8 U/L (15-37); Albumin 3.1 g/dL (3.4-5.0); Alkaline Phosphatase 57 U/L (45-117); BUN Blood Urea Nitrogen 8 mg/dL (7-18); Bicarbonate 26 mEq/L (21-32); Bilirubin Total 0.2 mg/dL (0.2-1.0); Glomerular Filtration Rate 113 ml/min (=/>90); Glucose Level 78 mg/dL (74-106); HCG, Quantitative 45892 mIU/mL (1-3); Magnesium 1.9 mg/dL (1.6-2.4); NT PRO-BNP 16 pg/mL (<125); Potassium 3.4 mEq/L (3.5-5.1); Protein, Total 7.3 g/dL (6.4-8.2); Sodium Level 135 mEq/L (136-145); Troponin High Sensitivity 3.5 pg/mL (<58.9)
[2023-10-01 05:11] LABS: Bilirubin Direct < 0.1 mg/dL (0-0.2); Bilirubin Indirect, Calculated ND mg/dL (0.2-0.8)
--- NOTE | 2023-10-01 07:06 | EDPHYS ---
Physician Documentation [facility] Name: Lara Palacio Age: 28 yrs Sex: Female : 1995 Arrival Date: 10/01/2023 Time: 02:32 Bed 11 Private MD: ED Physician Jamaal Edgar HPI: 10/01 02:45 This 28 yrs old Female presents to ER via Unassigned with complaints of Chest sp4 Tightness, Nausea/Vomiting. 05:54 Patient presents with complaint of worsening abscess under the nose. Patient reports sp4 purulent debris with associated chest tightness nausea and vomiting. Patient reports she is estimated 12 weeks EGA G2 P 1001 . 07:11 patient was here for facial infection on 09/28/2023 and was prescribed Clinda PO - sp4 Clindamycin HCl 300 mg Oral Capsule take 1 capsule ORAL route every 6 hours for 10 days; 40 capsule; Refills: 0; . DAIRY MANAGER: 03:56 LMP 06/19/2023, Verified, EDC 03/25/2024, Gestational age from LMP: 14 weeks 6 vc1 days Historical: - Allergies: 03:49 No Known Allergies; vc1 - PMHx: 03:49 BRADYCARDIA; Pacemaker; POTS; vc1 - PSHx: 03:49 ablation; section; pacemaker; vc1 - Immunization history:: Client reports having NOT received the Covid vaccine. - Social history:: Smoking status: Reported history of juuling and/or vaping. ROS: 05:55 Constitutional: Negative for fever, chills, and weight loss, positive chest pain , sp4 positive facial abscess , positive nausea and vomit 05:55 All other systems are negative, Exam: 05:55 Constitutional: This is a well developed, well nourished patient who is awake, alert, sp4 and in no acute distress. Head/Face: Normocephalic, atraumatic. Eyes: Pupils equal round and reactive to light, extra-ocular motions intact. Lids and lashes normal. Conjunctiva and sclera are not injected. Cornea within normal limits. Periorbital areas with no swelling, redness, or edema. ENT: Nares patent. No nasal discharge, no septal abnormalities noted. Tympanic membranes are normal and external auditory canals are clear. Oropharynx with no redness, swelling, or masses, exudates, or evidence of obstruction, uvula midline. Mucous membranes moist. Neck: Trachea midline, no thyromegaly or masses palpated, and no cervical lymphadenopathy. Supple, full range of motion without nuchal rigidity, or vertebral point tenderness. Chest/axilla: Normal chest wall appearance and motion. Nontender with no deformity. No lesions are appreciated. Cardiovascular: Regular rate and rhythm with a normal S1 and S2. No gallops, murmurs, or rubs. Normal PMI, no JVD. No pulse deficits. Respiratory: Lungs have equal breath sounds bilaterally, clear to auscultation and percussion. No rales, rhonchi or wheezes noted. No increased work of breathing, no retractions or nasal flaring. Abdomen/GI: Soft, non-tender, with normal bowel sounds. No distension or tympany. No guarding or rebound. No evidence of tenderness throughout. Back: No spinal tenderness. No costovertebral tenderness. Skin: Warm, dry with normal turgor. Normal color with no rashes, no lesions, and no evidence of cellulitis. MS/ Extremity: Pulses equal, no cyanosis. Neurovascular intact. Full, normal range of motion. Neuro: Awake and alert, GCS 15, oriented to person, place, time, and situation. Cranial nerves II-XII grossly intact. Motor strength 5/5 in all extremities. Sensory grossly intact. Psych: Awake, alert, with orientation to person, place and time. Behavior, mood, and affect are within normal limits 06:49 ECG was reviewed by the Attending Physician. EKG at 06:30 sp4 Vital Signs: 03:42 BP 127 / 80; Pulse 95; Resp 18; Temp 98.1; Pulse Ox 100% ; Weight 81.65 kg; Height 5 vc1 ft. 4 in. ; Pain 0/10; 06:48 BP 124 / 66; Pulse 86; Resp 13; Temp 98.3; Pulse Ox 100% ; vc1 08:25 BP 111 / 72; Pulse 77; Resp 20; Pulse Ox 100% ; Pain 3/10; jl7 03:42 Body Mass Index 30.90 (81.65 kg, 162.56 cm) vc1 03:42 Pain Scale: Adult vc1 08:25 Pain Scale: Adult jl7 MDM: 02:47 Patient medically screened. sp4 07:12 Differential diagnosis: acute pericarditis, anxiety, chest wall pain, costochondritis. sp4 HEART Score: History: Slightly Suspicious (0), ECG: Normal (0), Age: < or = 45 years (0), Risk Factors: No Risk Factors Known (0), Troponin: < or = 1 x Normal Limit (0), Total Score = 0. Data reviewed: vital signs, nurses notes, old medical records, lab test result(s), EKG, radiologic studies, ultrasound. ED course: Patient's ultrasound reveals single intrauterine estimated gestational age 14 weeks and 3 days. No emergent abnormalities identified on ultrasound. Patient cardiac workup thus far is unremarkable.. Patient would not allow proper abscess evaluation in emergency room and could not hold still. At this time patient does not have signs of septicemia. Patient was discussed with Dr. Farah with ENT and DrMegan Mercer states that patient may call with her at 8:30 AM today for evaluation in the office and evaluation of the facial/nasal philtrum abscess. Patient will be advised to continue clindamycin 300 mg p.o. every 6 hours prescribed on 09/28/2023 . 10/01 02:47 Order name: Basic Metabolic Panel; Complete Time: 05:41 sp4 10/01 02:47 Order name: CBC with Diff; Complete Time: 05:41 4 10/01 02:47 Order name: LFT's; Complete Time: 05:41 10/01 02:47 Order name: Magnesium; Complete Time: 05:41 4 10/01 02:47 Order name: NT PRO-BNP; Complete Time: 05:41 sp4 10/01 02:47 Order name: PT-INR; Complete Time: 05:41 sp4 10/01 02:47 Order name: Troponin HS; Complete Time: 05:41 sp4 10/01 02:47 Order name: HCG-Quantitative; Complete Time: 05:41 sp4 10/01 03:30 Order name: Blood Culture Adult (2) 10/01 03:27 Order name: US OB Limited 10/01 02:47 Order name: EKG; Complete Time: 02:47 sp4 10/01 02:47 Order name: Cardiac monitoring; Complete Time: 06:58 sp4 10/01 02:47 Order name: EKG - Nurse/Tech; Complete Time: 06:58 sp4 10/01 02:47 Order name: IV Saline Lock; Complete Time: 58 sp4 10/01 02:47 Order name: Labs collected and sent; Complete Time: sp4 10/01 02:47 Order name: O2 Per Protocol; Complete Time: sp4 10/01 02:47 Order name: O2 Sat Monitoring; Complete Time: sp4 EC:49 Rate is 69 beats/min. Rhythm is regular, Normal Sinus Rhythm. QRS [place] is Normal. [place] sp4 interval is normal. QRS interval is normal. QT interval is normal. No Q waves. T waves are Normal. No ST changes noted. Clinical impression: Normal ECG. Interpreted by me. Reviewed by me. Administered Medications: 05:55 Drug: Ondansetron IVP 4 mg IVP once; over 2 minutes Route: IVP; Site: right hand; 05:55 Drug: NS 0.9% IV 1000 ml IV at 1 bolus Per protocol; 1000 mL bolus Route: IV; Rate: 1 kl bolus; Site: right hand; 06:00 Drug: metoCLOPramide IVP 10 mg IVP once; over 1 to 2 minutes Route: IVP; Site: right kl hand; 06:00 Drug: Rocephin - Rocephin (cefTRIAXone) IVPB 1 grams IVPB once over 30 mins; (mix in 50 kl mL NS) Route: IVPB; Infused Over: 30 mins; Site: right hand; 06:42 Drug: vancoMYCIN IVPB 1 grams IVPB once over 2 hrs Route: IVPB; Infused Over: 2 hrs; Site: right hand; 07:00 Drug: Aspirin PO Chewable Tablet 324 mg PO once; 81 mg tablets x 4 Route: PO; vc1 Disposition Summary: 10/01/23 07:06 Discharge Ordered Problem: new sp4 Symptoms: are unchanged sp4 Condition: Stable sp4 Diagnosis - Cutaneous abscess of face sp4 - Nasal philtrum abscess, noncardiac chest pain sp4 Followup: sp4 - With: Jenifer Farah MD - When: Today - Reason: Recheck today's complaints Discharge Instructions: - Discharge Summary Sheet sp4 - Skin Abscess sp4 Forms: - Patient Portal Instructions sp4 Signatures: Dispatcher [employer] EDSidra Shoemaker RN RN kl Calcote, Vanessa, RN RN vc1 Jamaal Edgar, MD sp4
--- NOTE | 2023-10-01 07:06 | ER ---
Nurse's Notes [facility] Name: Lara Palacio Age: 28 yrs Sex: Female : 1995 Arrival Date: 10/01/2023 Time: 02:32 Bed 11 Private MD: Diagnosis: Cutaneous abscess of face;Nasal philtrum abscess, noncardiac chest pain Presentation: 10/01 03:42 Chief complaint: Patient states: I've been having chest tightness and palpitations, I vc1 have cellulitis of my nose and it is hurting and getting worse. Coronavirus screen: Vaccine status: Patient reports being unvaccinated. Client denies travel out of the [place] in the last 14 days. At this time, the client does not indicate any symptoms associated with coronavirus-19. Ebola Screen: Patient negative for fever greater than or equal to 101.5 degrees Fahrenheit, and additional compatible Ebola Virus Disease symptoms Patient denies exposure to infectious person. Patient denies travel to an Ebola-affected area in the 21 days before illness onset. No symptoms or risks identified at this time. Initial Sepsis Screen: Does the patient meet any 2 criteria? No. Patient's initial sepsis screen is negative. Does the patient have a suspected source of infection? No. Patient's initial sepsis screen is negative. Risk Assessment: Do you want to hurt yourself or someone else? Patient reports no desire to harm self or others. Onset of symptoms is unknown. 03:42 Method Of Arrival: Ambulatory vc1 03:42 Acuity: DEEPA 3 vc1 Triage Assessment: 03:50 General: Appears in no apparent distress. uncomfortable, Behavior is cooperative, vc1 anxious, crying. Pain: Complains of pain in nose Quality of pain is described as discomfort. EENT: No deficits noted. No signs and/or symptoms were reported regarding the EENT system. Neuro: Level of Consciousness is awake, alert, confused, Oriented to person, place, time, situation, Appropriate for age. Cardiovascular: Capillary refill < 3 seconds Patient's skin is warm and dry. Chest pain is described as vague. Respiratory: No deficits noted. GI: No deficits noted. No signs and/or symptoms were reported involving the gastrointestinal system. : No deficits noted. No signs and/or symptoms were reported regarding the genitourinary system. Derm: Skin is red, Rash noted that is draining pus, itchy, on nose. Musculoskeletal: No deficits noted. No signs and/or symptoms reported regarding the musculoskeletal system. FOUNDER: 03:56 LMP 06/19/2023, Verified, EDC 03/25/2024, Gestational age from LMP: 14 weeks 6 vc1 days Historical: - Allergies: 03:49 No Known Allergies; vc1 - PMHx: 03:49 BRADYCARDIA; Pacemaker; POTS; vc1 - PSHx: 03:49 ablation; section; pacemaker; vc1 - Immunization history:: Client reports having NOT received the Covid vaccine. - Social history:: Smoking status: Reported history of juuling and/or vaping. Screenin:55 [facility] ED Fall Risk Assessment (Adult) History of falling in the last 3 months, vc1 including since admission No falls in past 3 months (0 pts) Confusion or Disorientation No (0 pts) Intoxicated or Sedated No (0 pts) Impaired Gait No (0 pts) Mobility Assist Device Used No (0 pt) Altered Elimination No (0 pt) Score/Fall Risk Level 0 - 2 = Low Risk Oriented to surroundings, Maintained a safe environment, Educated pt \T\ family on fall prevention, incl call for assistance when getting out of bed. Abuse screen: Denies threats or abuse. Nutritional screening: No deficits noted. Tuberculosis screening: No symptoms or risk factors identified. Assessment: 06:49 Reassessment: No changes from previously documented assessment. Patient and/or family vc1 updated on plan of care and expected duration. Pain level reassessed. Patient is alert, oriented x 3, equal unlabored respirations, skin warm/dry/pink. 07:00 Reassessment: Patient appears in no apparent distress at this time. No changes from jl7 previously documented assessment. Patient and/or family updated on plan of care and expected duration. Pain level reassessed. Patient is alert, oriented x 3, equal unlabored respirations, skin warm/dry/pink. Pt resting comfortably. States no needs. Updated regarding POC. Vital Signs: 03:42 BP 127 / 80; Pulse 95; Resp 18; Temp 98.1; Pulse Ox 100% ; Weight 81.65 kg; Height 5 vc1 ft. 4 in. ; Pain 0/10; 06:48 BP 124 / 66; Pulse 86; Resp 13; Temp 98.3; Pulse Ox 100% ; vc1 08:25 BP 111 / 72; Pulse 77; Resp 20; Pulse Ox 100% ; Pain 3/10; jl7 03:42 Body Mass Index 30.90 (81.65 kg, 162.56 cm) vc1 03:42 Pain Scale: Adult vc1 08:25 Pain Scale: Adult jl7 ED Course: 02:36 Patient arrived in ED. ag3 02:45 Jamaal Edgar MD is Attending Physician. sp4 03:49 Triage completed. vc1 03:50 Arm band placed on right wrist. vc1 03:55 Inserted saline lock: in right hand, using aseptic technique. Blood collected. kmf 03:58 Patient has correct armband on for positive identification. Bed in low position. Call vc1 light in reach. Pulse ox on. NIBP on. 04:47 US OB Limited In Process Unspecified. EDMS 06:09 Blood Culture Adult (2) Sent. lg3 07:05 Jenifer Farah MD is Referral Physician. sp4 08:25 No provider procedures requiring assistance completed. IV discontinued, intact, jl7 bleeding controlled, No redness/swelling at site. Patient maintains SpO2 saturation greater than 95% on room air. Administered Medications: 05:55 Drug: Ondansetron IVP 4 mg IVP once; over 2 minutes Route: IVP; Site: right hand; 05:55 Drug: NS 0.9% IV 1000 ml IV at 1 bolus Per protocol; 1000 mL bolus Route: IV; Rate: 1 kl bolus; Site: right hand; 06:00 Drug: metoCLOPramide IVP 10 mg IVP once; over 1 to 2 minutes Route: IVP; Site: right kl hand; 06:00 Drug: Rocephin - Rocephin (cefTRIAXone) IVPB 1 grams IVPB once over 30 mins; (mix in 50 kl mL NS) Route: IVPB; Infused Over: 30 mins; Site: right hand; 06:42 Drug: vancoMYCIN IVPB 1 grams IVPB once over 2 hrs Route: IVPB; Infused Over: 2 hrs; Site: right hand; 07:00 Drug: Aspirin PO Chewable Tablet 324 mg PO once; 81 mg tablets x 4 Route: PO; vc1 Medication: 03:56 VIS not applicable for this client. vc1 Outcome: 07:06 Discharge ordered by MD. painter 08:26 Discharged to home ambulatory, jl7 08:26 Condition: stable 08:26 Discharge instructions given to patient, Instructed on discharge instructions, follow up and referral plans. medication usage, Demonstrated understanding of instructions, follow-up care, medications, 08:26 Patient left the ED. jl7 Signatures: Dispatcher [employer] EDMS Sidra Dunn, RN Barak Slaughter RN RN jl7 Caitlyn Castanon ag3 Eugenie Andrade RN RN lg3 Hailey Guevara RN RN vc1 Jamaal Edgar MD MD sp4 [address] [facility] Corrections: (The following items were deleted from the chart) 08:25 08:24 Reassessment: Patient appears in no apparent distress at this time. No changes jl7 from previously documented assessment. Patient and/or family updated on plan of care and expected duration. Pain level reassessed. Patient is alert, oriented x 3, equal unlabored respirations, skin warm/dry/pink. Pt resting comfortably. States no needs. Updated regarding POC jl7
[2023-10-01 13:30] VITALS: BP 111/72; TEMP 98.3; O2SAT 100
--- NOTE | 2023-10-01 17:43 | RAD REPORT ---
EXAM DESCRIPTION: US - OB Limited - 10/01/2023 4:45 am : 1995. LMP: ?. EGA (LMP): 13 weeks 0 days. DL (LMP): 04/07/2024. TECHNIQUE: Quinn scale transabdominal and transvaginal ultrasound of the pelvis with duplex doppler a nd spectral analysis. CLINICAL HISTORY: Chest pains. COMPARISON: None. Uterus: The uterus is anteverted and measures 12.6 x 8.5 x 11.3 cm. Myometrium is normal. There is no mass or fibroid. Cervix is 3.2 cm. Gestational Sac: An intrauterine gestational sac is present. Sac dimensions are not provided. Yolk sac: -. pole. Present. [place] rump length: 8.47 cm. This corresponds to a gestational age of 14 weeks, 3 days. Cardiac activity: Present. Cardiac rate: 154 b/m. Subchorionic hemorrhage: None. Placenta: Anterior fundal, grade 0-1. Right ovary: The right ovary is not visualized. Left ovary: The left ovary is not visualized. Adnexa: No mass. Free fluid: There is no free fluid in the cul-de-sac. IMPRESSION: 1. Single viable intrauterine at 14 weeks, 4 days. This is discordant by 1 w [place], 4 days with menstrual dates. Electronically signed by: Tucker Childs MD 10/01/2023 08:40 AM COMIC ILLUSTRATOR Due to temporary technical issues with the PACS/Fluency reporting system, reports are being signed by the in house radiologists without review as a courtesy to insure prompt reporting. The interpreting radiologist is fully responsible for the content of the report.
--- NOTE | 2023-10-03 13:34 | EKG ---
Test Date: 2023-10-01 Test Time: 06:30:51 Attending Anesthesiologist: ANDREW MEASUREMENT RESULTS: Intervals: Rate: 69 DE: 156 QRSD: 82 QT: 392 QTc: 420 [place]: P: 61 DE: 156 QRS: 86 T: 55 INTERPRETIVE STATEMENTS: Normal sinus rhythm Normal ECG Compared to ECG 09/28/2023 18:58:52 No significant changes Electronically Signed On 10-03-23 13:24:39 SENIOR SOFTWARE DEVELOPER by Bryan Putnam
== END ==
LOC: ER 02:32
DX: O26.892 Other specified pregnancy related conditions, second trimester (principal); L02.01 Cutaneous abscess of face; Z3A.14 14 weeks gestation of pregnancy; Z95.0 Presence of cardiac pacemaker
CPT/HCPCS: 36415; 76815; 80048; 80076; 83735; 83880; 84484; 84702; 85025; 85610; 87040; 93005; J0696; J2405; J2765; J7030; J7050

== ENCOUNTER 2024-04-06 14:29 | Emergency (ER) | payer OTHER ==
[2024-04-06 15:46] LABS: Specific Gravity 1.015 (1.005-1.030)
[2024-04-06 15:49] LABS: Specific Gravity 1.015 (1.005-1.030); Urine Bacteria <20 /HPF (<20); Urine Bilirubin NEGATIVE (Negative); Urine Blood 1+ (Negative); Urine Clarity Extremely Turbid (Clear); Urine Color Light-Yellow (Yellow); Urine Culture Reflex Order REFLEXED; Urine Glucose NEGATIVE (Negative); Urine Ketones NEGATIVE (Negative); Urine Microscopic Reflex YN ORDER UMIC; Urine Mucus Slight /HPF (None Seen); Urine Nitrite NEGATIVE (Negative); Urine Protein TRACE (Negative); Urine RBC <5 /HPF (None Seen); Urine Urobilinogen Normal (Normal); Urine WBC 20-50 /HPF (<5); Urine pH 7.5 (5.0-7.0)
[2024-04-06 15:54] LABS: Absolute Eosinophils 0.3 K/uL (0-0.5); Absolute Monocytes 0.3 K/uL (0.1-1.3); Absolute Neutrophil 2.1 K/uL (1.8-8.0); Basophils % 0.7 % (0-1.3); Eosinophils % 7.1 % (0-4.4); Hematocrit 39.1 % (36.0-45.0); Hemoglobin 12.6 g/dL (12.0-15.0); Lymphocytes % 41.9 % (15.3-44.8); MCH 27.2 pg (27.0-35.0); MCHC 32.1 g/dL (32.0-36.0); MCV 84.6 fL (80-100); MPV 7.1 fL (7.6-11.3); Monocytes % 6.8 % (3.3-12.3); Neutrophils % 43.5 % (41.7-73.7); Nucleated Red Blood Cells % 0.1 % (0-0); Platelets 265 thou/uL (152-406); RBC Red Blood Cell Count 4.62 M/uL (3.86-4.86)
[2024-04-06 16:02] LABS: Albumin 3.6 g/dL (3.4-5.0); Anion Gap 4.8 mEq/L (5.0-15.0); Bilirubin Total 0.2 mg/dL (0.2-1.0); Globulin 3.7 g/dL (2.3-3.5); Potassium 3.8 mEq/L (3.5-5.1); Protein, Total 7.3 g/dL (6.4-8.2)
--- NOTE | 2024-04-06 17:30 | RAD REPORT ---
EXAM DESCRIPTION: US - Transvaginal Study Probe - 04/06/2024 5:03 pm CLINICAL HISTORY: Pelvic pain and bleeding COMPARISON: April 02, 2024 FINDINGS: The uterus measures 10 x 5 by cm. The endometrial stripe measures 1 centimeter and contain s heterogeneous material. The ovaries are normal in size and echotexture. The right and left adnexa unremarkable Small amount of free fluid within the cul-de-sac. IMPRESSION: Heterogeneous material within the endometrium. This may represent blood or retained prod ucts of conception
--- NOTE | 2024-04-06 18:09 | ER ---
Nurse's Notes [facility] Name: Lara Palacio Age: 28 yrs Sex: Female : 1995 Arrival Date: 04/06/2024 Time: 14:29 Bed 20 Private MD: Diagnosis: Other immediate hemorrhage Presentation: 04/06 15:10 Chief complaint: Patient states: Here 2 days ago and refused transfer to [facility]. Here ll1 for vaginal bleeding and lump to vaginal area. Coronavirus screen: Client denies travel out of the [place] in the last 14 days. At this time, the client does not indicate any symptoms associated with coronavirus-19. Ebola Screen: Patient denies travel to an Ebola-affected area in the 21 days before illness onset. Initial Sepsis Screen: Does the patient meet any 2 criteria? No. Patient's initial sepsis screen is negative. Does the patient have a suspected source of infection? No. Patient's initial sepsis screen is negative. Risk Assessment: Do you want to hurt yourself or someone else? Patient reports no desire to harm self or others. Onset of symptoms. 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 - Infectious Disease History:: Denies. - Social history:: Smoking status: Reported history of juuling and/or vaping. Screenin:41 [facility] ED Fall Risk Assessment (Adult) History of falling in the last 3 months, mb9 including since admission No falls in past 3 months (0 pts) Confusion or Disorientation No (0 pts) Intoxicated or Sedated No (0 pts) Impaired Gait No (0 pts) Mobility Assist Device Used No (0 pt) Altered Elimination No (0 pt) Score/Fall Risk Level 0 - 2 = Low Risk Oriented to surroundings, Maintained a safe environment, Educated pt \T\ family on fall prevention, incl call for assistance when getting out of bed. Abuse screen: Denies threats or abuse. Nutritional screening: No deficits noted. Tuberculosis screening: No symptoms or risk factors identified. Assessment: 15:44 General: Appears in no apparent distress. Behavior is calm, cooperative. Pain: mb9 Complains of pain in pelvis Quality of pain is described as throbbing, Pain began gradually, Is continuous. Neuro: Level of Consciousness is awake, alert, obeys commands, Oriented to person, place, time, situation, Appropriate for age. Cardiovascular: Patient's skin is warm and dry. 15:44 Respiratory: Airway is patent Respiratory effort is even, unlabored, Respiratory mb9 pattern is regular, symmetrical. 15:44 GI: Abdomen is flat, non-distended, Bowel sounds present X 4 quads. Abd is soft and non mb9 tender X 4 quads. : Reports vaginal bleeding that is bright red, with clots, moderate flow. EENT: No signs and/or symptoms were reported regarding the EENT system. Derm: Skin is pink, warm \T\ dry. Musculoskeletal: Range of motion: intact in all extremities. 17:17 Reassessment: No changes from previously documented assessment. Patient and/or family mb9 updated on plan of care and expected duration. Pain level reassessed. Patient is alert, oriented x 3, equal unlabored respirations, skin warm/dry/pink. Vital Signs: 15:10 BP 134 / 98; Pulse 101; Resp 17; Temp 99.1(O); Pulse Ox 99% ; Weight 77.56 kg; Height 5 ll1 ft. 4 in. ; Pain 4/10; 16:33 BP 138 / 78; Pulse 91; Resp 16; Pulse Ox 100% on R/A; mb9 18:03 BP 137 / 94; Pulse 101; Resp 16; Pulse Ox 100% on R/A; mb9 15:10 Body Mass Index 29.35 (77.56 kg, 162.56 cm) ll1 15:10 Pain Scale: Adult ll1 ED Course: 14:32 Patient arrived in ED. ra3 14:36 Loida Odell MD is Attending Physician. gb1 15:03 Arm band placed on Patient placed in an exam room, on a stretcher. ll1 15:12 Triage completed. ll1 15:23 Julianne Stephens RN is Primary Nurse. mb9 15:41 CBC with Diff Sent. mb9 15:41 CMP Sent. mb9 15:41 Lipase Sent. mb9 15:41 Test, Urine Sent. mb9 15:41 Urinalysis w/ reflexes Sent. mb9 15:41 Initial lab(s) drawn, by md, sent to lab. Urine collected:. Inserted saline lock: 22 mb9 gauge in right forearm, using aseptic technique. Blood collected. Flushed with 10 mL NS. 15:53 Placed in gown. Bed in low position. Call light in reach. Side rails up X 1. Provided mb9 Education on: press call light if needing anything. Client placed on continuous cardiac and pulse oximetry monitoring. NIBP monitoring applied. 15:53 No provider procedures requiring assistance completed. mb9 16:56 Patient taken to ultrasound. via wheelchair. mb9 17:04 Transvaginal Study Probe In Process Unspecified. EDAK 17:40 initiated a transfer with Julianne from the [facility] Transfer Center. eb 18:10 administrative approval given by Michaela Márquez Commodity Trader/ Dr. Lillie Stuart has accepted the patient in transfer/ patient has been accepted to [facility] OB- ER 3rd floor/ connected the nurse at [facility] with Julianne Winston for nurse to nurse. 18:21 Patient transferred, IV remains in place. mb9 Administered Medications: No medications were administered Medication: 15:53 VIS not applicable for this client. mb9 Outcome: 18:08 ER care complete, transfer ordered by . [email or web address] 18:21 Transferred by ground EMS Transfer form completed. X-rays sent w/ patient. mb9 18:21 Condition: stable 18:21 Instructed on the need for transfer, 19:10 Patient left the ED. mb9 Signatures: Dispatcher [employer] EDAK Natalie Herrera Lynsay, RN RN ll1 Julianne Stephens RN RN mb9 Loida Odell MD MD gb1 Lottie Savage ra3 Corrections: (The following items were deleted from the chart) 15:53 15:44 Cardiovascular: Patient's skin is warm and dry. mb9 mb9
--- NOTE | 2024-04-06 18:09 | EDPHYS ---
Physician Documentation [facility] Name: Lara Palacio Age: 28 yrs Sex: Female : 1995 Arrival Date: 04/06/2024 Time: 14:29 Bed 20 Private MD: ED Physician Loida Odell HPI: 04/06 17:21 This 28 yrs old Female presents to ER via Ambulatory with complaints of gb1 Urinary Retention, Vaginal Bleeding, painful lump post c-sec. 17:21 28-year-old female presents with vaginal bleeding as she gave via gb1 about 3 weeks ago to a baby girl. Patient reports that she has been addicted to fentanyl and currently on methadone but still relapsing on fentanyl last use was today just prior to arrival to the emergency department. She states that she has been bleeding off and on like a period since she gave . She was here on April 02 with similar symptoms but then left again AGAINST MEDICAL ADVICE prior to transfer to [facility] for further evaluation. Patient states that she currently is involved with CPS and does not have custody of her daughter but is trying to get her medical situation taking care of before she goes to court to try to position for custody of her daughter. Patient's states that she feels fatigued and weak today and then also feels like she has palpitations at times. She has a history of fentanyl abuse, a pacemaker and pots disease. She denies any vaginal discharge or recent diagnosis of STD. She delivered at bedtime. She is currently G2, P2.. 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 - Infectious Disease History:: Denies. - Social history:: Smoking status: Reported history of juuling and/or vaping. Exam: 17:21 Constitutional: This is a well developed, well nourished patient who is awake, alert, gb1 and in no acute distress. Head/Face: Normocephalic, atraumatic. Eyes: Pupils equal round and reactive to light, extra-ocular motions intact. Lids and lashes normal. Conjunctiva and sclera are non-icteric and not injected. Cornea within normal limits. Periorbital areas with no swelling, redness, or edema. ENT: Nares patent. No nasal discharge, no septal abnormalities noted. Tympanic membranes are normal and external auditory canals are clear. Oropharynx with no redness, swelling, or masses, exudates, or evidence of obstruction, uvula midline. Mucous membranes moist. Neck: Trachea midline, no thyromegaly or masses palpated, and no cervical lymphadenopathy. Supple, full range of motion without nuchal rigidity, or vertebral point tenderness. No Meningismus. Chest/axilla: Normal chest wall appearance and motion. Nontender with no deformity. No lesions are appreciated. Cardiovascular: Regular rate and rhythm with a normal S1 and S2. No gallops, murmurs, or rubs. Normal PMI, no JVD. No pulse deficits. Respiratory: Lungs have equal breath sounds bilaterally, clear to auscultation and percussion. No rales, rhonchi or wheezes noted. No increased work of breathing, no retractions or nasal flaring. Abdomen/GI: Soft, non-tender, with normal bowel sounds. No distension or tympany. No guarding or rebound. No evidence of tenderness throughout. Back: No spinal tenderness. No costovertebral tenderness. Full range of motion. Skin: Warm, dry with normal turgor. Normal color with no rashes, no lesions, and no evidence of cellulitis. MS/ Extremity: Pulses equal, no cyanosis. Neurovascular intact. Full, normal range of motion. Neuro: Awake and alert, GCS 15, oriented to person, place, time, and situation. Cranial nerves II-XII grossly intact. Motor strength 5/5 in all extremities. Sensory grossly intact. Cerebellar exam normal. Normal gait. Vital Signs: 15:10 BP 134 / 98; Pulse 101; Resp 17; Temp 99.1(O); Pulse Ox 99% ; Weight 77.56 kg; Height 5 ll1 ft. 4 in. ; Pain 4/10; 16:33 BP 138 / 78; Pulse 91; Resp 16; Pulse Ox 100% on R/A; mb9 18:03 BP 137 / 94; Pulse 101; Resp 16; Pulse Ox 100% on R/A; mb9 15:10 Body Mass Index 29.35 (77.56 kg, 162.56 cm) ll1 15:10 Pain Scale: Adult ll1 MDM: 15:07 Patient medically screened. gb1 17:21 Data reviewed: lab test result(s), Patient's hemoglobin/hct was 12/39 on April 02. I gb1 reviewed her prior lab results from her ED visit at that time., radiologic studies, ultrasound, I reviewed the patient's ultrasound from April 02 which showed large clots in the uterus versus contained products of conception.. 17:21 ED course: 28-year-old G2, P2 currently with dysfunctional uterine bleeding status post gb1 at 36 weeks. Patient is non today and I will repeat an transvaginal ultrasound to evaluate for retained products of conception versus residual uterine hemorrhage. Patient is vitally stable and at this time has a unchanged hemoglobin/hematocrit as compared to April ER visit. I have a low suspicion at this time retained products of the patient had a section. D/w Lillie Ramirez PGY-3 at [facility] ([facility] attending) at 1806. . 04/06 14:36 Order name: CBC with Diff; Complete Time: 16:03 [facility] 04/06 14:36 Order name: CMP; Complete Time: 16:03 gb 04/06 14:36 Order name: Lipase; Complete Time: 16:03 gb1 04/06 14:36 Order name: Test, Urine; Complete Time: 16:03 gb1 04/06 14:36 Order name: Urinalysis w/ reflexes; Complete Time: 16:03 gb 04/06 15:52 Order name: Urine Culture; Complete Time: 17:36 EDMS 04/06 17:04 Order name: Transvaginal Study Probe; Complete Time: 17:35 EDMS 04/06 14:36 Order name: IV Saline Lock; Complete Time: 15:41 gb1 04/06 14:36 Order name: Labs collected and sent; Complete Time: 15:41 gb1 Administered Medications: No medications were administered Disposition Summary: 04/06/24 18:08 Transfer Ordered Notes: Transfer Location: [place] [id number] Reason: Higher level of care gb1 Condition: Stable gb1 Problem: chronic gb1 Symptoms: have worsened gb1 Accepting Physician: Dr. Darnell(04/06/24 19:10) mb9 Diagnosis - Other immediate hemorrhage gb1 Forms: - Medication Reconciliation Form gb1 - SBAR form gb1 Signatures: Dispatcher [employer] EDMonroe Shoemaker, RN RN ll1 Julianne Stephens RN RN mb9 Loida Odell MD MD gb1 Corrections: (The following items were deleted from the chart) 16:07 16:07 Pelvis Complete+US.RAD.BRZ ordered. EDMS EDMS 17:36 17:36 Abnormal. gb1 gb1 18:07 17:21 ED course: 28-year-old G2, P2 currently with dysfunctional uterine bleeding gb1 status post at 36 weeks. Patient is non today and I will repeat an transvaginal ultrasound to evaluate for retained products of conception versus residual uterine hemorrhage. Patient is vitally stable and at this time has a unchanged hemoglobin/hematocrit as compared to April ER visit. I have a low suspicion at this time retained products of the patient had a section.. gb1 19:10 18:08 Dr. Darnell gb1 mb9
[2024-04-06 23:18] VITALS: TEMP 99.1
[2024-04-06 23:19] VITALS: O2SAT 100
[2024-04-06 23:20] VITALS: BP 137/94
== END 2024-04-06 19:10 | disposition short-term general hospital (02) ==
LOC: ER 14:29
DX: O72.1 Other immediate postpartum hemorrhage (principal); Z95.0 Presence of cardiac pacemaker
CPT/HCPCS: 36415; 76830; 80053; 81001; 81025; 83690; 85025; 87086; 87088; 99285

== ENCOUNTER 2024-06-18 14:00 | Emergency (ER) | payer OTHER ==
[2024-06-18 16:19] LABS: Specific Gravity 1.025 (1.005-1.030); Urine Bilirubin NEGATIVE (Negative); Urine Blood Negative (Negative); Urine Clarity Clear (Clear); Urine Color Light-Yellow (Yellow); Urine Glucose NEGATIVE (Negative); Urine Ketones NEGATIVE (Negative); Urine Microscopic Reflex YN NO UMIC; Urine Nitrite NEGATIVE (Negative); Urine Protein NEGATIVE (Negative); Urine Urobilinogen Normal (Normal)
[2024-06-18 16:21] LABS: Specific Gravity 1.025 (1.005-1.030)
[2024-06-18 16:38] LABS: Absolute Eosinophils 0.4 K/uL (0-0.5); Absolute Monocytes 0.4 K/uL (0.1-1.3); Absolute Neutrophil 3.8 K/uL (1.8-8.0); Basophils % 0.4 % (0-1.3); Eosinophils % 4.8 % (0-4.4); Hematocrit 40.8 % (36.0-45.0); Hemoglobin 13.9 g/dL (12.0-15.0); Lymphocytes % 38.9 % (15.3-44.8); MCH 27.9 pg (27.0-35.0); MPV 6.9 fL (7.6-11.3); Monocytes % 5.6 % (3.3-12.3); Neutrophils % 50.3 % (41.7-73.7); Nucleated Red Blood Cells % 0.1 % (0-0); Platelets 340 thou/uL (152-406); RBC Red Blood Cell Count 4.97 M/uL (3.86-4.86); Red Cell Distribution Width 15.8 % (12.1-15.2)
[2024-06-18 16:53] LABS: Anion Gap 6.9 mEq/L (5.0-15.0); Potassium 3.9 mEq/L (3.5-5.1)
--- NOTE | 2024-06-18 17:50 | ER ---
Nurse's Notes [facility] Name: Lara Palacio Age: 29 yrs Sex: Female : 1995 Arrival Date: 06/18/2024 Time: 14:00 Bed 9 Private MD: Diagnosis: Pelvic and perineal pain;Gonococcal cervicitis, unspecified Presentation: 06/18 15:35 Chief complaint: Patient states: Intermittent bleeding in between periods and after ph intercourse, bloating, fatigue, SOB w/ activity. Had a baby in March, multiple complications after giving . Coronavirus screen: Vaccine status: Patient reports being unvaccinated. Ebola Screen: No symptoms or risks identified at this time. Initial Sepsis Screen: Does the patient meet any 2 criteria? No. Patient's initial sepsis screen is negative. Does the patient have a suspected source of infection? No. Patient's initial sepsis screen is negative. Risk Assessment: Do you want to hurt yourself or someone else? Patient reports no desire to harm self or others. Onset of symptoms was June 18, 2024. 15:35 Method Of Arrival: Ambulatory ph 15:35 Acuity: DEEPA 3 ph Triage Assessment: 16:35 General: Appears in no apparent distress. Behavior is calm, cooperative. Pain: Denies ph pain. : Reports vaginal bleeding that is moderate flow. Historical: - Allergies: 15:40 No Known Allergies; ph - PMHx: 15:40 BRADYCARDIA; Opioid abuse; Pacemaker; POTS; ph - PSHx: 15:40 ablation; section; pacemaker; ph - Immunization history:: Adult Immunizations unknown. - Infectious Disease History:: Denies. - Social history:: Smoking status: Patient denies any tobacco usage or history of. Screenin:15 Abuse screen: Denies threats or abuse. Denies injuries from another. Nutritional ss screening: No deficits noted. Tuberculosis screening: Never had TB. Assessment: 17:08 General: Appears in no apparent distress. comfortable, Behavior is calm, cooperative, ss Denies fever. Neuro: Level of Consciousness is awake, alert, obeys commands, Oriented to person, place, time, situation. Respiratory: Airway is patent Respiratory effort is even, unlabored, Respiratory pattern is regular, symmetrical. GI: Abdomen is non-distended, Patient currently denies diarrhea, nausea, vomiting. : Reports pelvic pain and vaginal discharge. Derm: Skin is pink, warm \T\ dry. normal. Vital Signs: 15:35 BP 131 / 99; Pulse 110; Resp 18; Temp 97.8; Pulse Ox 100% on R/A; Weight 74.84 kg; ph Height 5 ft. 4 in. ; 18:15 BP 138 / 88; Pulse 89; ss 15:35 Body Mass Index 28.32 (74.84 kg, 162.56 cm) ph ED Course: 14:42 Patient arrived in ED. ra3 14:50 Loida Odell MD is Attending Physician. gb1 15:08 Patient's name was called from ER lobby. No response. ph 15:40 Triage completed. ph 16:33 Initial lab(s) drawn, by me, sent to lab. Urine collected: clean catch specimen, clear. ph Inserted saline lock: 22 gauge in right antecubital area, using aseptic technique. Blood collected. Flushed with 10 mL NS. 17:45 Assist provider with pelvic exam: Set up pelvic tray. Performed by Loida Odell MD ss Specimens sent to lab. Patient tolerated well. 17:47 Sri Girard, RN is Primary Nurse. ss 17:47 Wet Prep Sent. ss 17:47 GC (Mario/Chl) Probe VAGINAL (Do not order if pt is under 13, order Culture instead) Sent.ss 18:14 IV discontinued, intact, bleeding controlled, No redness/swelling at site. Pressure ss dressing applied. 18:15 Patient has correct armband on for positive identification. ss Administered Medications: 18:12 Not Given (to be given IVP rather per Dr. Odell): rocephin (ceftriaxone)500 mg IM oncess 18:13 Drug: Rocephin IV 500 mg IV at per protocol once; Given slow IV push per pharmacy ss instructions Route: IV; Rate: per protocol; Site: right antecubital; 18:13 Follow up: IV Status: Completed infusion ss Medication: 18:15 VIS not applicable for this client. ss Outcome: 17:50 Discharge ordered by . gb1 18:14 Discharged to home ambulatory, ss 18:14 Condition: good 18:14 Discharge instructions given to patient, Instructed on discharge instructions, follow up and referral plans. medication usage, Demonstrated understanding of instructions, follow-up care, medications, Prescriptions given X 1, 18:16 Patient left the ED. ss Signatures: Sri Girard RN RN ss Sara Greene RN RN ph Loida Odell MD MD gb1 Lottie Savage ra3 Corrections: (The following items were deleted from the chart) 15:41 15:40 Home Meds: Methadone Oral; ph ph 20:09 18:14 No provider procedures requiring assistance completed. ss
--- NOTE | 2024-06-18 17:50 | EDPHYS ---
Physician Documentation [facility] Name: Lara Palacio Age: 29 yrs Sex: Female : 1995 Arrival Date: 06/18/2024 Time: 14:00 Bed 9 Private MD: ED Physician Loida Odell HPI: 06/18 16:02 This 29 yrs old Female presents to ER via Ambulatory with complaints of gb1 Vaginal Bleeding, Pelvic Pain. 16:02 29-year-old female here with vaginal discharge and dysfunctional uterine gb1 bleeding. Patient has been sexually active without protection with other high risk individuals and is concerned for Sexually transmitted disease.. Historical: - Allergies: 15:40 No Known Allergies; ph - PMHx: 15:40 BRADYCARDIA; Opioid abuse; Pacemaker; POTS; ph - PSHx: 15:40 ablation; section; pacemaker; ph - Immunization history:: Adult Immunizations unknown. - Infectious Disease History:: Denies. - Social history:: Smoking status: Patient denies any tobacco usage or history of. Exam: 16:02 Constitutional: This is a well developed, well nourished patient who is awake, alert, gb1 and in no acute distress. Head/Face: Normocephalic, atraumatic. Eyes: Pupils equal round and reactive to light, extra-ocular motions intact. Lids and lashes normal. Conjunctiva and sclera are non-icteric and not injected. Cornea within normal limits. Periorbital areas with no swelling, redness, or edema. ENT: Nares patent. No nasal discharge, no septal abnormalities noted. Tympanic membranes are normal and external auditory canals are clear. Oropharynx with no redness, swelling, or masses, exudates, or evidence of obstruction, uvula midline. Mucous membranes moist. Neck: Trachea midline, no thyromegaly or masses palpated, and no cervical lymphadenopathy. Supple, full range of motion without nuchal rigidity, or vertebral point tenderness. No Meningismus. Chest/axilla: Normal chest wall appearance and motion. Nontender with no deformity. No lesions are appreciated. Cardiovascular: Regular rate and rhythm with a normal S1 and S2. No gallops, murmurs, or rubs. Normal PMI, no JVD. No pulse deficits. Respiratory: Lungs have equal breath sounds bilaterally, clear to auscultation and percussion. No rales, rhonchi or wheezes noted. No increased work of breathing, no retractions or nasal flaring. Abdomen/GI: Soft, non-tender, with normal bowel sounds. No distension or tympany. No guarding or rebound. No evidence of tenderness throughout. Back: No spinal tenderness. No costovertebral tenderness. Full range of motion. Female : Normal external genitalia. Skin: Warm, dry with normal turgor. Normal color with no rashes, no lesions, and no evidence of cellulitis. MS/ Extremity: Pulses equal, no cyanosis. Neurovascular intact. Full, normal range of motion. Neuro: Awake and alert, GCS 15, oriented to person, place, time, and situation. Cranial nerves II-XII grossly intact. Motor strength 5/5 in all extremities. Sensory grossly intact. Cerebellar exam normal. Normal gait. 17:50 Pelvic Exam: Normal external genitalia. Speculum exam with closed cervical os, green gb1 purulent mucinous discharge or bleeding noted. Bimanual exam with normal adnexa, no adnexal or cervical motion tenderness. Normal uterus. Vital Signs: 15:35 BP 131 / 99; Pulse 110; Resp 18; Temp 97.8; Pulse Ox 100% on R/A; Weight 74.84 kg; ph Height 5 ft. 4 in. ; 18:15 BP 138 / 88; Pulse 89; ss 15:35 Body Mass Index 28.32 (74.84 kg, 162.56 cm) ph MDM: 15:06 Medical Screening Exam initiated gb1 17:50 ED course: 29-year-old female with symptoms of sepsis has been an infection concern for [facility] gonorrhea and chlamydia due to MS US sexual encounters recently. I prophylactically treated her with Rocephin and will prescribe doxycycline as an outpatient. Patient has been given explicit return precautions and routine follow-up for gynecology for full STD testing. Her pelvic exam is negative for any signs of PID she has no cervical motion tenderness but she does have green-yellow discharge which makes me suspicious for her vaginal exam.. 17:52 Data reviewed: vital signs, nurses notes. [facility] 06/18 15:06 Order name: Test, Urine; Complete Time: 16:57 [facility] 06/18 15:06 Order name: Urinalysis w/ reflexes [facility] 06/18 16:00 Order name: Basic Metabolic Panel; Complete Time: 16:57 gb1 06/18 16:00 Order name: CBC with Diff; Complete Time: 16:57 gb1 06/18 17:08 Order name: GC (Mario/Chl) Probe VAGINAL (Do not order if pt is under 13, order Culture gb1 instead) 06/18 17:19 Order name: Wet Prep gb1 06/18 16:00 Order name: IV Saline Lock; Complete Time: 17:15 gb1 06/18 16:00 Order name: Labs collected and sent; Complete Time: 17:15 gb1 Administered Medications: 18:12 Not Given (to be given IVP rather per Dr. Odell): rocephin (ceftriaxone)500 mg IM oncess 18:13 Drug: Rocephin IV 500 mg IV at per protocol once; Given slow IV push per pharmacy ss instructions Route: IV; Rate: per protocol; Site: right antecubital; 18:13 Follow up: IV Status: Completed infusion Disposition Summary: 06/18/24 17:50 Discharge Ordered Notes: Location: Home gb1 Problem: new gb1 Symptoms: are unchanged gb1 Condition: Stable gb1 Diagnosis - Pelvic and perineal pain gb1 - Gonococcal cervicitis, unspecified gb1 Followup: gb1 - With: Private Physician - When: - Reason: Further diagnostic work-up Discharge Instructions: - Discharge Summary Sheet gb1 - Cervicitis gb1 Forms: - Medication Reconciliation Form gb1 - Antibiotic Education gb1 - Prescription Opioid Use gb1 - Patient Portal Instructions gb1 - Leadership Thank You Letter gb1 Prescriptions: - Doxycycline Monohydrate 100 mg Oral Tablet - take 1 tablet ORAL route every 12 hours for 10 days; 20 tablet; Refills: 0, gb1 Product Selection Permitted Signatures: Dispatcher [employer] EDMS Sri Girard RN RN ss Sara Greene RN RN ph Loida Odell MD MD gb1 Corrections: (The following items were deleted from the chart) 15:41 15:40 Home Meds: Methadone Oral; ph ph 16:01 16:01 BASIC METABOLIC PANEL+C.LAB.BRZ ordered. EDMS EDMS 16:01 16:01 CBC+H.LAB.BRZ ordered. EDMS EDMS
[2024-06-18] MEDS ORDERED: WATER FOR INJ,STERILE 10 ML ONE (18:01)
[2024-06-18] MEDS ORDERED: CEFTRIAXONE 500 MG/VIAL ONE (18:01)
[2024-06-18 18:48] VITALS: TEMP 97.8; O2SAT 100
[2024-06-18 18:54] VITALS: BP 138/88
[2024-06-22 23:01] LABS: C.trachomatis RNA,TMA Not Detected (Not Detected); N.gonorrhoeae RNA,TMA Not Detected (Not Detected)
== END 2024-06-18 18:16 | disposition home or self-care (01) ==
LOC: ER 14:00
DX: A54.03 Gonococcal cervicitis, unspecified (principal); Z95.0 Presence of cardiac pacemaker
CPT/HCPCS: 36415; 80048; 81003; 81025; 85025; 87210; 87490; 87590; 96374; 99284

== ENCOUNTER 2024-09-02 14:49 | Emergency (ER) | payer OTHER, SELFPAY ==
[2024-09-02] MEDS ORDERED: NA CHLORIDE 0.9% 1,000 ML ONE (15:26)
[2024-09-02] MEDS ORDERED: DIPHENHYDRAMINE 50 MG/ML VIAL ONE (15:26)
[2024-09-02] MEDS ORDERED: METHYLPREDNISOLONE 125 MG INJ ONE (15:26)
[2024-09-02] MEDS ORDERED: FAMOTIDINE 20 MG/2 ML VIAL IV ONE (15:26)
[2024-09-02 15:33] LABS: Absolute Eosinophils 0.1 K/uL (0-0.5); Absolute Lymphocytes (CBC) 1.7 K/uL (0.7-4.9); Absolute Monocytes 0.3 K/uL (0.1-1.3); Absolute Neutrophil 3.6 K/uL (1.8-8.0); Basophils % 0.5 % (0-1.3); Eosinophils % 1.6 % (0-4.4); Hemoglobin 13.4 g/dL (12.0-15.0); Lymphocytes % 28.9 % (15.3-44.8); MCH 28.8 pg (27.0-35.0); MCHC 33.6 g/dL (32.0-36.0); MCV 85.9 fL (80-100); Monocytes % 5.4 % (3.3-12.3); Neutrophils % 63.6 % (41.7-73.7); Nucleated Red Blood Cells % 0.1 % (0-0); Platelets 381 thou/uL (152-406); RBC Red Blood Cell Count 4.65 M/uL (3.86-4.86); Red Cell Distribution Width 14.1 % (12.1-15.2)
[2024-09-02 15:52] LABS: Anion Gap 10.5 mEq/L (5.0-15.0); BUN Blood Urea Nitrogen 8 mg/dL (7-18); Bicarbonate 25 mEq/L (21-32); Glomerular Filtration Rate 81 ml/min (=/>90); Glucose Level 102 mg/dL (74-106); Sodium Level 139 mEq/L (136-145)
[2024-09-02 15:54] LABS: Potassium 3.5 mEq/L (3.5-5.1); Troponin High Sensitivity < 3.0 pg/mL (<58.9)
--- NOTE | 2024-09-02 16:05 | ER ---
Nurse's Notes [facility] Name: Lara Palacio Age: 29 yrs Sex: Female : 1995 Arrival Date: 09/02/2024 Time: 14:49 Bed 20 Private MD: Diagnosis: Contact with marine animal Presentation: 09/02 14:59 Chief complaint: Patient states: Numbness and tingling to palms that radiates to upper rs5 arms bilat after [place] a [place] the beach. Coronavirus screen: At this time, the client does not indicate any symptoms associated with coronavirus-19. Ebola Screen: No symptoms or risks identified at this time. Initial Sepsis Screen: Does the patient meet any 2 criteria? No. Patient's initial sepsis screen is negative. Does the patient have a suspected source of infection? No. Patient's initial sepsis screen is negative. Risk Assessment: Do you want to hurt yourself or someone else? Patient reports no desire to harm self or others. Onset of symptoms was September 08, 2023. 14:59 Method Of Arrival: Ambulatory [facility] 14:59 Acuity: DEEPA 3 rs5 Triage Assessment: 15:00 General: Appears in no apparent distress. Behavior is cooperative, appropriate for age, bp anxious. Pain: Denies pain. EENT: No deficits noted. Neuro: No deficits noted. Cardiovascular: No deficits noted. Respiratory: No deficits noted. GI: No signs and/or symptoms were reported involving the gastrointestinal system. : No signs and/or symptoms were reported regarding the genitourinary system. Derm: Reports tingling. Musculoskeletal: No deficits noted. Historical: - Allergies: 15:01 No Known Allergies; rs5 - PMHx: 15:01 BRADYCARDIA; Opioid abuse; Pacemaker; POTS; rs5 - PSHx: 15:01 ablation; section; pacemaker; rs5 - Immunization history:: Adult Immunizations up to date. - Infectious Disease History:: Denies. - Social history:: Smoking status: Reported history of juuling and/or vaping. Screenin:30 [facility] ED Fall Risk Assessment (Adult) History of falling in the last 3 months, bp including since admission No falls in past 3 months (0 pts) Confusion or Disorientation No (0 pts) Intoxicated or Sedated No (0 pts) Impaired Gait No (0 pts) Mobility Assist Device Used No (0 pt) Altered Elimination No (0 pt) Score/Fall Risk Level 0 - 2 = Low Risk Oriented to surroundings. Abuse screen: Denies threats or abuse. Denies injuries from another. Nutritional screening: No deficits noted. Tuberculosis screening: No symptoms or risk factors identified. Assessment: 15:00 General: Appears in no apparent distress. Behavior is cooperative, appropriate for age, bp anxious. 16:30 Reassessment: Patient appears in no apparent distress at this time. Patient states bp symptoms have improved. Vital Signs: 14:59 BP 148 / 91; Pulse 77; Resp 17; Pulse Ox 99% on R/A; rs5 16:34 BP 127 / 75; Pulse 67; Resp 17; Temp 98; Pulse Ox 99% ; bp ED Course: 14:51 Patient arrived in ED. mr 14:54 Andrew Campbellistin, [facility]. kb 14:54 Rocky Magana MD is Attending Physician. kb 15:00 Arm band placed on. bp 15:01 Triage completed. rs5 15:06 Sid Dean, LORNE is Primary Nurse. bp 16:30 Patient has correct armband on for positive identification. bp 16:30 No provider procedures requiring assistance completed. IV discontinued, intact, bp bleeding controlled, No redness/swelling at site. Pressure dressing applied. Administered Medications: 15:32 Drug: NS 0.9% IV 1000 ml IV at 1000 ml once; to be given as a bolus over 60 minutes bp Route: IV; Rate: 1000 ml; Site: right forearm; 16:35 Follow up: IV Status: Completed infusion bp 15:32 Drug: MethylPrednisoLONE IVP 125 mg IVP once Route: IVP; Site: right forearm; bp 16:35 Follow up: Response: No adverse reaction bp 15:32 Drug: Famotidine IVP 20 mg IVP once; dilute with 10 mL 0.9% NaCl; give over 2 minutes bp Route: IVP; Site: right forearm; 16:35 Follow up: Response: No adverse reaction bp 15:32 Drug: diphenhydrAMINE IVP 12.5 mg IVP once Route: IVP; Site: right forearm; bp 16:34 Follow up: Response: No adverse reaction bp Medication: 16:30 VIS not applicable for this client. bp Outcome: 16:05 Discharge ordered by . kb 16:30 Discharged to home ambulatory, bp 16:30 Condition: stable 16:30 Discharge instructions given to patient, Instructed on discharge instructions, follow up and referral plans. Demonstrated understanding of instructions, follow-up care, 16:35 Patient left the ED. bp Signatures: Keesha Campbell, THERAPY SITE COORDINATOR-C THERAPY SITE COORDINATOR-Ckb Julianne Christine, Reg Reg mr Sid Dean, RN RN bp Artur Tate RN RN rs5
--- NOTE | 2024-09-02 16:05 | EDPHYS ---
Physician Documentation [facility] Name: Lara Palacio Age: 29 yrs Sex: Female : 1995 Arrival Date: 09/02/2024 Time: 14:49 Bed 20 Private MD: ED Physician Rocky Magana HPI: 09/02 15:52 This 29 yrs old Female presents to ER via Ambulatory with complaints of Hand problem. kb 15:53 Pt is a 29 year old female who presents for numbness to bilateral hands that has kb started running up her arms after handling a snail at the beach. States she picked up some shells and didn't realize there were snails in there. States she started feeling like her heart was acting abnormal as well. States the numbness to hands has improved. 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 Historical: - Allergies: 15:01 No Known Allergies; rs5 - PMHx: 15:01 BRADYCARDIA; Opioid abuse; Pacemaker; POTS; rs5 - PSHx: 15:01 ablation; section; pacemaker; rs5 - Immunization history:: Adult Immunizations up to date. - Infectious Disease History:: Denies. - Social history:: Smoking status: Reported history of juuling and/or vaping. ROS: 15:52 Constitutional: As per HPI kb Exam: 15:52 Constitutional: This is a well developed, well nourished patient who is awake, alert, kb and in no acute distress. Head/Face: Normocephalic, atraumatic. ENT: Moist Mucous membranes Cardiovascular: Regular rate Respiratory: Respirations even and unlabored. No increased work of breathing. Talking in full sentences Abdomen/GI: Soft, non-tender. No distention Skin: Warm, dry with normal turgor. Normal color. MS/ Extremity: Pulses equal, no cyanosis. Neurovascular intact. Full, normal range of motion. Neuro: Awake and alert, GCS 15, oriented to person, place, time, and situation. 15:52 ECG was reviewed by the Attending Physician. Vital Signs: 14:59 BP 148 / 91; Pulse 77; Resp 17; Pulse Ox 99% on R/A; rs5 16:34 BP 127 / 75; Pulse 67; Resp 17; Temp 98; Pulse Ox 99% ; bp MDM: 14:54 Medical Screening Exam initiated kb 15:52 Data reviewed: vital signs, nurses notes. kb 16:03 Differential diagnosis: allergic reaction, palpitations, arrhythmia, toxic effect of kb marine life. Counseling: I had a detailed discussion with the patient and/or guardian regarding the historical points, exam findings, and any diagnostic results supporting the discharge/admit diagnosis, lab results, the need for outpatient follow up, a family practitioner, to return to the emergency department if symptoms worsen or persist or if there are any questions or concerns that arise at home. ED course: Pt reports all symptoms have resolved. 09/02 15:01 Order name: Basic Metabolic Panel; Complete Time: 15:56 kb 09/02 15:01 Order name: CBC with Diff; Complete Time: 15:39 kb 09/02 15:01 Order name: Troponin HS; Complete Time: 15:56 kb 09/02 15:01 Order name: EKG; Complete Time: 15:02 kb 09/02 15:01 Order name: Cardiac monitoring; Complete Time: 15:32 kb 09/02 15:01 Order name: EKG - Nurse/Tech; Complete Time: 15:53 kb 09/02 15:01 Order name: IV Saline Lock; Complete Time: 15:32 kb 09/02 15:01 Order name: Labs collected and sent; Complete Time: 15:32 kb 09/02 15:01 Order name: O2 Per Protocol; Complete Time: 15:32 kb 09/02 15:01 Order name: O2 Sat Monitoring; Complete Time: 15:32 kb EC:52 Rate is 79 beats/min. Rhythm is regular. QRS [place] is Normal. ND interval is normal at kb 152 msec. QRS interval is normal at 84 msec. QT interval is normal at 442 msec. Administered Medications: 15:32 Drug: NS 0.9% IV 1000 ml IV at 1000 ml once; to be given as a bolus over 60 minutes bp Route: IV; Rate: 1000 ml; Site: right forearm; 16:35 Follow up: IV Status: Completed infusion bp 15:32 Drug: MethylPrednisoLONE IVP 125 mg IVP once Route: IVP; Site: right forearm; bp 16:35 Follow up: Response: No adverse reaction bp 15:32 Drug: Famotidine IVP 20 mg IVP once; dilute with 10 mL 0.9% NaCl; give over 2 minutes bp Route: IVP; Site: right forearm; 16:35 Follow up: Response: No adverse reaction bp 15:32 Drug: diphenhydrAMINE IVP 12.5 mg IVP once Route: IVP; Site: right forearm; bp 16:34 Follow up: Response: No adverse reaction bp Disposition Summary: 09/02/24 16:05 Discharge Ordered Notes: Location: Home kb Condition: Stable kb Diagnosis - Contact with marine animal kb Followup: kb - With: Emergency Department - When: As needed - Reason: Worsening of condition Followup: kb - With: Private Physician - When: 2 - 3 days - Reason: Recheck today's complaints, Continuance of care, Re-evaluation by your physician Discharge Instructions: - Discharge Summary Sheet kb - Marine Life Injury, [id number] kb Forms: - Medication Reconciliation Form kb - Antibiotic Education kb - Prescription Opioid Use kb - Patient Portal Instructions kb - Leadership Thank You Letter kb - Work release form [email or web address] Addendum: 09/07/2024 07:46 I was immediately available for consultation during this patient's visit. I did not e c2 personally see the patient or discuss the patient with the MAT. . Signatures: Dispatcher [employer] Keesha Walker, REPAIRER EVAPORATOR-C REPAIRER EVAPORATOR-Sid Stapleton, RN RN Artur Jamison, LORNE RN rs5 Rocky Magana MD MD ec2
[2024-09-02 18:01] VITALS: O2SAT 99
[2024-09-02 18:02] VITALS: BP 127/75; TEMP 98
--- NOTE | 2024-09-04 12:45 | EKG ---
Test Date: 2024-09-02 Test Time: 15:49:49 Lap Regulator: BP MEASUREMENT RESULTS: Intervals: Rate: 79 HI: 152 QRSD: 84 QT: 386 QTc: 442 [place]: P: 37 HI: 152 QRS: 111 T: 24 INTERPRETIVE STATEMENTS: Normal sinus rhythm with sinus arrhythmia Right axis deviation Cannot rule out Anterior infarct, age undetermined Abnormal ECG Compared to ECG 07/12/2024 12:15:24 Myocardial infarct finding now present Sinus bradycardia no longer present Electronically Signed On 09-04-24 12:41:34 PARCEL POST CLERK by Emmett Weber
== END 2024-09-02 16:35 | disposition home or self-care (01) ==
LOC: ER 14:49
DX: R20.0 Anesthesia of skin (principal); W56.89XA Other contact with other nonvenomous marine animals, initial encounter
CPT/HCPCS: 36415; 80048; 84484; 85025; 93005; 96361; 96374; 96375; 99284; J1200; J2919; J7030